=== PATIENT | male | born 1935 | race Caucasian/White ===

== ENCOUNTER 2018-04-23 14:07 | Emergency (ER) | payer MEDICARE, SELFPAY ==
[2018-04-23 14:09] VITALS: BP 155/88; PULSE 68; RESP 14; TEMP 36.6; O2SAT 98; BMI 30.1
--- NOTE | 2018-04-23 14:12 | RAD_ITS ---
STUDY: X-RAY CHEST REASON FOR EXAM: Male, 82 years old. Chest pain. TECHNIQUE: Single AP portable view of the chest. COMPARISON: CT of the chest, April 23, 2018. FINDINGS: The lungs are clear and expanded. There is a calcified granuloma in the medial right lower lobe. There is no demonstrated pleural abnormality. There is borderline cardiomegaly. Normal mediastinum and natalie. Normal visualized pulmonary arteries. There is mild atherosclerotic calcification of the aortic arch with tortuosity. The thoracic spine is obscured by the mediastinum. Normal visualized ribs, clavicles, and shoulders. There is no demonstrated abnormality of the visualized soft tissue structures of the upper abdomen. RAD/Chest 1 View (Portable) IMPRESSION: Old granulomatous disease without acute cardiopulmonary process. Electronically Signed: Zac Perry DO at 16:25 EDT Tel [phone], Service support ,
--- NOTE | 2018-04-23 14:23 | CT_ITS ---
STUDY: CTA CHEST REASON FOR EXAM: Male, 82 years old. Constant sternal chest pain for 3 days. RADIATION DOSAGE (If Supplied By Facility): CTDIvol = ( 20.64 ) mGy, DLP = ( 492.83 ) mGycm TECHNIQUE: The examination was performed with the intravenous administration of 100 ml of Isovue 370 contrast material. Post-processing of the angiographic images was performed, with multiplanar reformation and 3D reconstruction. Individualized dose optimization techniques were used for this CT. COMPARISON: Chest, April 23, 2018. FINDINGS: Normal enhancement of the main pulmonary artery and right and left pulmonary arteries. Normal enhancement of the bilateral peripheral pulmonary arteries. There is no demonstrated pulmonary embolism. There is atherosclerotic tortuosity of the thoracic aorta. The ascending thoracic aorta measures 4.1 x 3.9 cm in diameter. This tapers into the arch.. There is no demonstrated aortic dissection. The heart is borderline enlarged. There are coronary artery calcifications. Normal mediastinum. There is a small right hilar calcified lymph node. Normal visualized trachea and bronchi. The lungs are well expanded. There is a 6 mm calcified granuloma in the perihilar right lower lobe. There is calcifications along the posterior right diaphragmatic surface. No other demonstrated pleural abnormality. Normal chest wall structures. Minimal degenerative changes of the lower thoracic spine. Normal visualized upper abdomen. CT/CTA Chest W/WO Contrast IMPRESSION: 1. No evidence of pulmonary embolus. 2. Borderline ascending thoracic aortic aneurysm. The aorta measures 3.9 x 4.1 cm at the level of the right pulmonary artery. 3. Atherosclerotic changes of the thoracic aorta and coronary arteries. 4. Borderline cardiomegaly. 5. Old granulomatous disease. Electronically Signed: Zac Perry DO at 16:24 EDT Tel [phone], Service support ,
[2018-04-23 14:30] LABS: Absolute Lymphocyte Count 2.09 X10^3/ul (0.83-4.51); Absolute Neutrophil Count 3.2 X10^3/uL (2.0-7.7); Eosinophil# 0.07 X10^3/uL; Eosinophils% 1.2 % (0-5); Hemoglobin 14.6 g/dl (13.0-16.5); Lymphocyte # 2.09 X10^3/ul (4.0); Lymphocyte % 36.2 % (19-41); Mean Corp Hgb Conc 33.2 g/gl (32-36); Mean Corpuscular Hgb 31.1 pg (27.0-32.0); Mean Corpuscular Volume 93.8 fL (80-94); Mean Platelet Vol. 9.6 fl (6.2-12.0); Monocyte# 0.37 X10^3/uL; Monocyte% 6.4 % (0-10); Neutrophil # 3.23 X10^3/uL (2.7-7.7); Platelet Count 203 K/mm3 (150-450); RBC Distribution Width CV 13.1 % (11.6-14.6); RBC Distribution Width SD 44.8 fl (35.1-43.9); Red Blood Count 4.69 M/mm3 (4.6-6.2); White Blood Count 5.8 K/mm3 (4.4-11.0)
--- NOTE | 2018-04-23 14:31 | ED.DCSUM_ITS ---
- ER Visit Summary Date of Service: 04/23/18 Chief Complaint: [] Right-sided chest pain for weeks History of Present Illness: The patient is a 82 M [] right-sided chest pain for weeks etiology of this is unclear, he had prior outpatient workup with his physicians including what sounds like x-rays and labs are unremarkable he is scheduled to have an EGD sometime later this month he had persistence of the right subcostal margin chest pain he was brought in by family, he has had no fever no cough he is able to eat and drink bowel bladder habits have been normal he has no history of TX PE or DVT, he takes his hand draws over the right subcostal margin as the focus of his pain Physical Examination: [] Pain as above vital signs within normal range he is in no distress his HEENT exam unremarkable neck is supple the lungs are clear the chest wall there is pain to palpation over the right septal costal margin is no crepitus or subcu air is no signs of trauma or bruising or MRSA or infection the rest of his chest wall is nontender the abdomen soft nontender upper lower extremities otherwise unremarkable the backs unremarkable pulses are symmetric he has no clubbing cyanosis or edema or signs of DVT to any extremity and he is awake alert sitting forward and sometimes turning seems to cause an increase of the pain The family is quite concerned as to the etiology of the pain they sound dissatisfied with outpatient workup, he scheduled to have EGD sometime this month as is a concern is hiatal hernia may be causing this His age and the broad differential screening labs EKG troponin CTA are obtained The EKG labs CTA chest x-rays are all generally unremarkable no acute findings see those reports please on reevaluation is resting comforting the bed no distress Plan test results the family he has had the symptoms that are very focal to the right lower chest for weeks there is nothing at this time that suggest an acute life-threatening process he will continue all his therapies he will keep all of his appointments with his physicians I will start him on [place] No. 7 tablets to use only at bedtime so he can get some relief of the pain flare at that time but otherwise he will follow-up with his physicians and return for change in symptoms Test Results: [] Emergency Department Course and Treatment: [] Treatment Plan: [] Disposition: [] Home stable Impression: [] Right sided chest pain for weeks etiology unclear This note was generated with Dragon dictation software. It may contain incorrect words, spelling, and punctuation that were not noted in review of the chart prior to signing ED Disposition - Plan for ED Patient: Chief Complaint: Chest Pain Referrals: Nichole Penaloza [Primary Care Provider] -
[2018-04-23 14:43] LABS: Anion Gap 5 (5-15); BUN 17 mg/dL (7-18); BUN/Creat Ratio 13.9 RATIO (10-20); Calcium,Total 8.9 mg/dL (8.5-10.1); Chloride 103 mmol/L (98-107); Creatinine, Serum 1.22 mg/dL (0.70-1.30); EST Glomerular Filtration Rate 60 mL/min (>60); Est Glom Filt Rate - Afr Amer 73 mL/min (>60); Glucose 113 mg/dL (74-106); Potassium 4.2 mmol/L (3.5-5.1); Sodium Level 138 mmol/L (136-145)
[2018-04-23 14:48] LABS: AST(SGOT) 27 U/L (15-37); Alanine Aminotransfer ALT/SGPT 51 U/L (16-61); Albumin, Serum 3.8 g/dL (3.2-5.0); Alkaline Phosphatase 63 U/L (45-117); Bilirubin, Direct 0.15 mg/dL (0.00-0.30); Globulin 3.6 g/dL (2.2-4.2); Protein, Total 7.4 g/dL (6.4-8.2)
[2018-04-23 14:49] LABS: POSITIVE COUNT NO; POSITIVE DIFFERENTIAL NO; POSITIVE MORPHOLOGY NO
[2018-04-23 14:57] LABS: Lipase 164 U/L (73-393)
[2018-04-23 15:25] LABS: BNP,B-Type NATRIURETIC PEPTIDE 52.4 pg/mL (0-100)
[2018-04-23 15:37] VITALS: BP 149/92; PULSE 66; RESP 12; O2SAT 97
[2018-04-23 16:20] VITALS: BP 131/97; PULSE 66; RESP 18; O2SAT 96
--- NOTE | 2018-04-23 16:31 | DCINST.ED_ITS ---
ED Disposition - Plan for ED Patient: Chief Complaint: Chest Pain Instructions: ED Chest Pain Atypical Unkn Cause Prescriptions: Hydrocodone Bitart/Apap 5-325 [[place] 5MG-325MG] 1 tab PO QHS 3 Days #10 tab Referrals: Nichole Penaloza [Primary Care Provider] -
[2018-04-23 16:39] VITALS: BP 145/91; PULSE 70; RESP 16; O2SAT 97
--- NOTE | 2018-04-23 16:58 | ED.RN ---
PATIENT FAMILY DID NOT FEEL COMFORTABLE TAKING PATIENT HOME BEING THAT HE WAS STILL IN PAIN AND ALL THE OF HIS TEST RESULTS CAME BACK NORMAL. DR EUCEDA HAD LEFT SO THIS NURSE HAD DR. BUCK TALK TO THE FAMILY ABOUT THE TEST RESULTS AND THE PATIENTS FAMILY STATED THAT THEY FELT COMFORTABLE AND HAD A BETTER UNDERSTANDING.
== END 2018-04-23 17:01 | disposition home or self-care (01) ==
PROVIDERS: Emergency Provider Emergency Medicine; Family Provider Internal Medicine Infectious Disease; PCP Internal Medicine Infectious Disease
DX: R07.9 Chest pain, unspecified (principal); K44.9 Diaphragmatic hernia without obstruction or gangrene; Z79.82 Long term (current) use of aspirin; Z79.899 Other long term (current) drug therapy
CPT/HCPCS: 71045; 71275; 80048; 80076; 83690; 83880; 84484; 85025; 93005; 99284; Q9967; A4216

== ENCOUNTER 2019-04-14 14:00 | Outpatient (RCR) | payer MEDICARE, SELFPAY ==
--- NOTE | 2019-04-01 12:25 | HP.PTEVAL ---
Patient's Visit Information ENRICO LIVE is a 83 year old M referred to Physical Therapy by David Varma MD with a diagnosis of Vestibular neuritis. Date of Evaluation: 04/01/19 Physical Therapist: Colin Beard, RENZO, OCS, CSCS - Visit Plan Frequency: 1x/Week Duration: 4-6 Weeks Plan: weekly x 4-6 to progress adaptationa nd monitor symptoms. - Subjective Findings: Saw Dr. aVrma due to imbalance and dizzyness he started 2 weeks. Started when he was fixing breakfast and got dizzy and fell. Went to hospital and ran tests of head and found nothing. Dr. Varma then sent to therapy. Had MRI yesterday. Currently feels weak. No dizzyness. Head just doesn't feel right. Doesn't change with movements. NO JESSICA but has some neck pain for last few months. Gets better as day goes along. Balance is worse now then prior to this as he has to hang on to everything. Does not want to use cane or walker. No other falls. Has spent days trying to be active and be outside despite not feeling good. Works out at [employer] now 20-30 minutes out of normal 45 minutes as the feeling in his head gets worse. Hard to go in straight line. Activities avoiding include mowing and weed eating. Basic ADLs are going OK. Watching TV is OK. Not employed. Has steps to basement and no problem hanging on. - Objective c/s aROM WFL and without pain. VOR walk I but challenging to keep head moving. , trasnfers adn steps I without UE today. - B hallpike, - rol test. Oculomotor: Pursuit is slow and saccades are slow but asymptomatic. no nystagmus with gaze or head shake. VOR is symptomatic +4/10 from baseline for 10-15 seconds after 30 seconds seated horiz VOR. + L head thrust slightly. Convergence is not happening. - skew eye deviation. 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 Rehabilitation Potential: Fair - Anticipated Interventions Patient/Client Instruction: Educate patient on: Condition, Plan of Care For the Purpose of:: To increase tolerance to activity/condition/position, To improve ability of physical actions for home/community/work/leisure Therapeutic Exercise to Include: Balance training Comment: adaptation For the Purpose of:: To increase tolerance to activity/condition/position, To improve ability of physical actions for home/community/work/leisure Thank you for the opportunity to evaluate your patient. For Medicare and Medicare HMO plans, please review the plan of care and approve it. It will need to be FAXED BACK to us at [phone] for Medicare purposes. For Medicare only, by signing this I certify the plan of care. Please let me know if there are questions or concerns regarding this plan of care. Physician Signature: Date:
--- NOTE | 2019-06-24 15:34 | HP.PTDCNRP_ITS ---
HP - Discharge Summary (1) - Patient Information ENRICO LIVE was seen in my office for initial evaluation on 04/01/19. The following Plan of Care was established for this patient: Initial Frequency: 1x/Week Initial Duration: 4-6 Weeks - Anticipated Interventions Patient/Client Instruction: Educate patient on: Condition, Plan of Care For the Purpose of:: To increase tolerance to activity/condition/position, To i mprove ability of physical actions for home/community/work/leisure Therapeutic Exercise to Include: Balance training For the Purpose of:: To increase tolerance to activity/condition/position, To improve ability of physical actions for home/community/work/leisure This patient was last seen in our office 04/14/19. Pertinent comments regarding their Physical therapy will appear below: Pt seen two visits adn was 90% improved. He was to f/u a week later but neglected to schedule or attend. at this point, it has been over 8 weeks adn i will discontinue due to nonattendance. At this point I will be discontinuing this patient from physical therapy. I would be happy to see this patient again in the future if found appropriate by the physician. Thank you! Colin Beard, DPT, OCS, CSCS
== END 2019-04-14 19:00 | disposition home or self-care (01) ==
LOC: PT 14:00
PROVIDERS: Family Provider Internal Medicine Infectious Disease; PCP Internal Medicine Infectious Disease; Referring Provider Otolaryngology; Visit Provider Otolaryngology
DX: H93.3X9 Disorders of unspecified acoustic nerve (principal)
CPT/HCPCS: 97110; 97162; 97530

== ENCOUNTER → 2022-04-17 | Outpatient (CLI) | payer MEDICARE, SELFPAY ==
--- NOTE | 2022-04-17 17:11 | MRI_ITS ---
STUDY: MR Spine Lumbar W/O Contrast 04/17/2022 7:23 PM REASON FOR EXAM: Male, 86 years old. Back pain LUMBAR RADICULOPATHY, RIGHT SIDED PAIN TECHNIQUE: MR Spine Lumbar W/O Contrast Standardized fat and water weighted pulse sequences were obtained. COMPARISON: None FINDINGS: T12-L1: Normal endplates. Normal disc height, hydration and morphology. Normal bilateral facet joints. Normal central canal and bilateral lateral recesses. Normal bilateral intervertebral neural foramina. Normal lumbar lordosis. There is an S-shaped lumbar scoliosis with a dextroscoliosis of the upper lumbar spine and levoscoliosis of the lower lumbar spine. Normal conus medullaris that terminates at the L1. There is T2 hyperintensities of the right kidney. These are consistent for cysts. No follow up required. L1-2: Loss of intervertebral disc height. There is endplate spondylosis of the vertebral body. There is bilateral ligamentum flavum thickening. Severe narrowing of the left intervertebral neuroforamina. Compression of exiting left L1 nerve root. There is bilateral facet arthropathy. Discogenic endplate changes. Narrowing of the lateral recess. Posterior disc bulge. L2-3: Loss of intervertebral disc height. There is endplate spondylosis of the vertebral body. There is bilateral ligamentum flavum thickening. Severe narrowing of the left intervertebral neuroforamina. Compression of exiting left L2 nerve root. There is bilateral facet arthropathy. Discogenic endplate changes. Narrowing of the lateral recess. L3-4: Loss of intervertebral disc height. There is endplate spondylosis of the vertebral body. Narrowing of the lateral recess. Mild spinal stenosis.. There is bilateral facet arthropathy. Disc desiccation. L4-5: Loss of intervertebral disc height. There is endplate spondylosis of the vertebral body. There is a Grade 1 anterolisthesis of L4 on L5. Posterior disc bulge. Severe right neural foraminal stenosis. Compression of exiting nerve root. There is bilateral facet arthropathy. Narrowing of the right lateral recess. Disc desiccation. Mild spinal stenosis. L5-S1: Loss of intervertebral disc height. There is endplate spondylosis of the vertebral body. There is bilateral facet arthropathy. Bilateral neural foraminal stenosis. Compression of exiting nerve roots. There is bilateral ligamentum flavum thickening. Grade 1 retrolisthesis of L5 on S1. Discogenic endplate changes. Vertebral body hemangioma of S1. Normal visualized sacral ala. Normal visualized paraspinous soft tissue structures. MRI/Spine Lumbar (Routine) IMPRESSION: Multilevel degenerative changes, as described above. Electronically Signed: Davin Haider MD at 19:28 EDT ,
== END | disposition home or self-care (01) ==
LOC: MRI 17:03
PROVIDERS: PCP Internal Medicine Infectious Disease; Referring Provider Anesthesiology Pain Medicine; Visit Provider Anesthesiology Pain Medicine
DX: M51.16 Intervertebral disc disorders with radiculopathy, lumbar region (principal)
CPT/HCPCS: 72148

== ENCOUNTER → 2023-01-28 | Outpatient (CLI) | payer MEDICARE, SELFPAY ==
[2023-01-28 17:22] LABS: Absolute Lymphocyte Count 1.68 X10^3/uL (0.83-4.51); Absolute Neutrophil Count 3.4 X10^3/uL (2.0-7.7); Basophil# 0.01 X10^3/uL; Basophil% 0.2 % (0-1); Eosinophil# 0.12 X10^3/uL; Eosinophils% 2.2 % (0-5); Hematocrit 41.7 % (40-54); Hemoglobin 13.6 g/dL (13.0-16.5); Lymphocyte # 1.68 X10^3/ul (0.83-4.51); Lymphocyte % 30.3 % (19-41); Mean Corp Hgb Conc 32.6 g/dL (32-36); Mean Corpuscular Hgb 30.7 pg (27.0-32.0); Mean Corpuscular Volume 94.1 fL (80-94); Mean Platelet Vol. 10.2 fl (6.2-12.0); Monocyte# 0.34 X10^3/uL; Monocyte% 6.1 % (0-10); NRBC Flagged by Analyzer 0 % (0-5); Neutrophil # 3.37 X10^3/uL (2.7-7.7); Neutrophil % 60.8 % (47-70); Platelet Count 204 K/mm3 (150-450); RBC Distribution Width CV 13.1 % (11.6-14.6); RBC Distribution Width SD 45.4 fl (35.1-43.9); Red Blood Count 4.43 M/mm3 (4.6-6.2); White Blood Count 5.5 K/mm3 (4.4-11.0)
[2023-01-28 18:37] LABS: ALB/GLOB Ratio 1.2 RATIO (0.9-2.4); AST(SGOT) 34 U/L (15-37); Alanine Aminotransfer ALT/SGPT 66 U/L (16-61); Alkaline Phosphatase 62 U/L (45-117); Anion Gap 6 (5-15); BUN 15 mg/dL (7-18); BUN/Creat Ratio 14.2 RATIO (10-20); Calcium,Total 8.8 mg/dL (8.5-10.1); Chloride 102 mmol/L (98-107); Creatinine, Serum 1.06 mg/dL (0.70-1.30); EST Glomerular Filtration Rate 70 mL/min (>60); Est Glom Filt Rate - Afr Amer 85 mL/min (>60); Globulin 3.3 g/dL (2.2-4.2); Glucose 106 mg/dL (74-106); Potassium 3.9 mmol/L (3.5-5.1); Protein, Total 7.3 g/dL (6.4-8.2); Sodium Level 135 mmol/L (136-145); Thyroid Stim Hormone (TSH) 4.14 uIU/mL (0.358-3.74)
[2023-01-28 19:20] LABS: Hepatitis C Antibody Non-Reactive (Nonreactive); Syphilis Antibodies Non-reactive; Vitamin B12 522 pg/mL (211-911)
== END | disposition home or self-care (01) ==
LOC: POLAB3 16:55
PROVIDERS: PCP Internal Medicine Infectious Disease; Visit Provider Family Medicine Geriatric Medicine
DX: E11.65 Type 2 diabetes mellitus with hyperglycemia (principal)
CPT/HCPCS: 36415; 80053; 82306; 82607; 82746; 84443; 85025; 86780; 86803

== ENCOUNTER → 2023-02-04 | Outpatient (CLI) | payer MEDICARE, SELFPAY ==
--- NOTE | 2023-02-04 12:23 | CT_ITS ---
STUDY: CT BRAIN WITHOUT CONTRAST REASON FOR EXAM: Male, 87 years old. ALZHEIMER DISEASE RADIATION DOSAGE (If Supplied By Facility): CTDIvol = ( 44.99 ) mGy, DLP = ( 745.49 ) mGycm TECHNIQUE: Transaxial CT imaging of the brain was performed without administration of intravenous contrast material. Individualized dose optimization techniques were used for this CT. COMPARISON: No relevant priors. FINDINGS: Normal soft tissue structures. Normal calvarium. There is mild cerebral atrophy with widening of the extra-axial spaces and ventricular dilatation. There are areas of decreased attenuation within the white matter tracts of the supratentorial brain, consistent with microvascular disease changes. Normal basal ganglia and thalami. Normal brainstem. Normal cerebellum. There is no intracranial hemorrhage. There are no findings of an acute ischemic infarction. Normal visualized paranasal sinuses. CT/Brain/Head without Contrast IMPRESSION: No acute intracranial hemorrhage or mass effect. Electronically Signed: Clark Ann (Brooks), at 14:45 EDT ,
== END | disposition home or self-care (01) ==
LOC: CVS 12:19 → CT 12:25
PROVIDERS: PCP Family Medicine Geriatric Medicine; Referring Provider Family Medicine Geriatric Medicine; Visit Provider Family Medicine Geriatric Medicine
DX: G30.9 Alzheimer's disease, unspecified (principal)
CPT/HCPCS: 70450

== ENCOUNTER → 2023-04-04 | Outpatient (CLI) | payer MEDICARE, SELFPAY ==
--- NOTE | 2023-04-04 08:00 | ART_ITS ---
Reason For Study: PAD Left Segmental Pressures Left brachial= 159mmHg. Left posterior tibial artery = 198mmHg. Left dorsalis pedis artery = 170mmHg. The left posterior tibial artery waveforms are triphasic. The left dorsalis pedis waveforms are triphasic. Right Segmental Pressures Right brachial= 161mmHg. Right posterior tibial artery = 192mmHg. Right dorsalis pedis artery = 184mmHg. The right posterior tibial artery waveforms are triphasic. The right dorsalis pedis waveforms are triphasic. Indices The right resting ankle brachial index is 1.19. The right ankle brachial index by the posterior tibial artery is 1.19. The right ankle brachial index by the dorsalis pedis is 1.14. The left resting ankle brachial index is 1.23. The left ankle brachial index by the posterior tibial artery is 1.23. The left ankle brachial index by the dorsalis pedis is 1.06. VL/Ankle Brachial Index Interpretation Summary Right GIANNA 1.19, normal. Doppler/PVR waveforms of the right leg normal at rest. Left GIANNA 1.23, normal. Doppler/PVR waveforms of the left leg normal at rest. Ordering Physician: Elliott Singh Chi Referring Physician: Elliott Singh Chi Performed By: Tori Newton RVT, RDCS
== END | disposition home or self-care (01) ==
LOC: CVS 07:53
PROVIDERS: PCP Family Medicine Geriatric Medicine; Referring Provider Family Medicine Geriatric Medicine; Visit Provider Family Medicine Geriatric Medicine
DX: I73.9 Peripheral vascular disease, unspecified (principal); I77.9 Disorder of arteries and arterioles, unspecified
CPT/HCPCS: 93922

== ENCOUNTER 2023-05-02 08:09 | Outpatient (CLI) | payer MEDICARE, SELFPAY ==
--- NOTE | 2023-05-02 08:10 | NM_ITS ---
CLINICAL: 87-year-old male with history of low back discomfort. WHOLE BODY 99m Tc MDP RADIONUCLIDE BONE SCINTIGRAPHY COMPARISON: None available FINDINGS: Following the intravenous administration of 25.0 mCi of 99m Tc MDP, whole body bone images reveal: 1. Increased radiopharmaceutical concentration is defined in the acromioclavicular compartments of both shoulders, sternoclavicular compartment of the left shoulder, the fourth and fifth lumbar vertebra posteriorly on the left and right respectively. 2. The remaining skeletal structures are scintigraphically unremarkable with normal-appearing renal images and urinary bladder activity identified. NM/Bone Scan Whole Body IMPRESSION: 1. The increase in radiopharmaceutical concentration defined in the bilateral shoulders and fourth-fifth lumbar vertebra is commensurate with degenerative arthrosis. 2. No other scintigraphic abnormalities are defined. There is no definitive evidence of large articulation synovitis or trauma-fracture. Electronically Signed: Eduin Rodriguez, at 21:22 EDT ,
== END 2023-05-02 23:59 | disposition home or self-care (01) ==
PROVIDERS: PCP Family Medicine Geriatric Medicine; Referring Provider Orthopaedic Surgery; Visit Provider Orthopaedic Surgery
DX: Z00.00 Encounter for general adult medical examination without abnormal findings (principal); G30.9 Alzheimer's disease, unspecified; E11.65 Type 2 diabetes mellitus with hyperglycemia; M51.36 Other intervertebral disc degeneration, lumbar region; E03.9 Hypothyroidism, unspecified; Z13.89 Encounter for screening for other disorder; E55.9 Vitamin D deficiency, unspecified
CPT/HCPCS: 36415; 78306; 80053; 82306; 84443; 85025; A9503

== ENCOUNTER 2023-05-02 10:18 | Outpatient (CLI) | payer MEDICARE, SELFPAY ==
[2023-05-02 11:08] LABS: Absolute Lymphocyte Count 1.42 X10^3/uL (0.83-4.51); Eosinophil# 0.16 X10^3/uL; Eosinophils% 2.3 % (0-5); Hematocrit 42.5 % (40-54); Hemoglobin 13.7 g/dL (13.0-16.5); Lymphocyte # 1.42 X10^3/ul (0.83-4.51); Lymphocyte % 20.4 % (19-41); Mean Corp Hgb Conc 32.2 g/dL (32-36); Mean Corpuscular Hgb 31.1 pg (27.0-32.0); Mean Corpuscular Volume 96.4 fL (80-94); Mean Platelet Vol. 9.9 fl (6.2-12.0); Monocyte% 5.7 % (0-10); NRBC Flagged by Analyzer 0 % (0-5); Neutrophil # 4.95 X10^3/uL (2.7-7.7); Neutrophil % 71.2 % (47-70); Platelet Count 210 K/mm3 (150-450); RBC Distribution Width CV 13.1 % (11.6-14.6); RBC Distribution Width SD 46.3 fl (35.1-43.9); Red Blood Count 4.41 M/mm3 (4.6-6.2)
[2023-05-02 11:38] LABS: Vitamin D,25 Hydroxy 43.1 ng/mL
[2023-05-02 11:45] LABS: AST(SGOT) 16 U/L (15-37); Alanine Aminotransfer ALT/SGPT 19 U/L (16-61); Albumin, Serum 3.6 g/dL (3.2-5.0); Alkaline Phosphatase 60 U/L (45-117); Anion Gap 6 (5-15); BUN 11 mg/dL (7-18); BUN/Creat Ratio 10.9 RATIO (10-20); Chloride 101 mmol/L (98-107); Creatinine, Serum 1.01 mg/dL (0.70-1.30); EST Glomerular Filtration Rate 74 mL/min (>60); Est Glom Filt Rate - Afr Amer 90 mL/min (>60); Globulin 3.6 g/dL (2.2-4.2); Glucose 174 mg/dL (74-106); Potassium 3.5 mmol/L (3.5-5.1); Protein, Total 7.2 g/dL (6.4-8.2); Sodium Level 135 mmol/L (136-145)
== END 2023-05-02 23:59 | disposition home or self-care (01) ==
LOC: LAB 10:20
PROVIDERS: PCP Family Medicine Geriatric Medicine; Referring Provider Family Medicine Geriatric Medicine; Visit Provider Family Medicine Geriatric Medicine
DX: Z00.00 Encounter for general adult medical examination without abnormal findings (principal); G30.9 Alzheimer's disease, unspecified; E11.65 Type 2 diabetes mellitus with hyperglycemia; E03.9 Hypothyroidism, unspecified; Z13.89 Encounter for screening for other disorder; E55.9 Vitamin D deficiency, unspecified
CPT/HCPCS: 36415; 80053; 82306; 84443; 85025

== ENCOUNTER 2023-07-25 10:53 | Outpatient (CLI) | payer MEDICARE, SELFPAY ==
[2023-07-25 12:28] LABS: Absolute Lymphocyte Count 1.43 X10^3/uL (0.83-4.51); Absolute Neutrophil Count 2.9 X10^3/uL (2.0-7.7); Basophil# 0.01 X10^3/uL; Basophil% 0.2 % (0-1); Eosinophil# 0.09 X10^3/uL; Eosinophils% 1.9 % (0-5); Hematocrit 41.8 % (40-54); Hemoglobin 13.5 g/dL (13.0-16.5); Lymphocyte # 1.43 X10^3/ul (0.83-4.51); Lymphocyte % 29.9 % (19-41); Mean Corp Hgb Conc 32.3 g/dL (32-36); Mean Corpuscular Volume 96.1 fL (80-94); Mean Platelet Vol. 10.6 fl (6.2-12.0); Monocyte# 0.37 X10^3/uL; Monocyte% 7.7 % (0-10); NRBC Flagged by Analyzer 0 % (0-5); Neutrophil # 2.85 X10^3/uL (2.7-7.7); Neutrophil % 59.7 % (47-70); Platelet Count 245 K/mm3 (150-450); RBC Distribution Width CV 12.5 % (11.6-14.6); RBC Distribution Width SD 44.9 fl (35.1-43.9); Red Blood Count 4.35 M/mm3 (4.6-6.2); White Blood Count 4.8 K/mm3 (4.4-11.0)
[2023-07-25 12:48] LABS: Vitamin D,25 Hydroxy 47.9 ng/mL
[2023-07-25 12:58] LABS: ALB/GLOB Ratio 0.9 RATIO (0.9-2.4); AST(SGOT) 14 U/L (15-37); Alanine Aminotransfer ALT/SGPT 17 U/L (16-61); Albumin, Serum 3.5 g/dL (3.2-5.0); Alkaline Phosphatase 63 U/L (45-117); Anion Gap 8 (5-15); BUN 14 mg/dL (7-18); BUN/Creat Ratio 15.3 RATIO (10-20); Calcium,Total 8.7 mg/dL (8.5-10.1); Chloride 101 mmol/L (98-107); Creatinine, Serum 0.92 mg/dL (0.70-1.30); EST Glomerular Filtration Rate 83 mL/min (>60); Est Glom Filt Rate - Afr Amer 100 mL/min (>60); Globulin 3.9 g/dL (2.2-4.2); Glucose 188 mg/dL (74-106); Potassium 4.1 mmol/L (3.5-5.1); Protein, Total 7.4 g/dL (6.4-8.2); Sodium Level 137 mmol/L (136-145); Thyroid Stim Hormone (TSH) 3.38 uIU/mL (0.358-3.74)
== END 2023-07-25 23:59 | disposition home or self-care (01) ==
PROVIDERS: PCP Family Medicine Geriatric Medicine; Visit Provider Family Medicine Geriatric Medicine
DX: E11.65 Type 2 diabetes mellitus with hyperglycemia (principal); R53.83 Other fatigue; E55.9 Vitamin D deficiency, unspecified; R68.83 Chills (without fever)
CPT/HCPCS: 36415; 80053; 82306; 84443; 85025; 87635; 87804; 87807; C9803

== ENCOUNTER → 2023-07-25 | Outpatient (CLI) | payer MEDICARE, SELFPAY | END | disposition home or self-care (01) | PROVIDERS: PCP Family Medicine Geriatric Medicine; Referring Provider Family Medicine Geriatric Medicine; Visit Provider Family Medicine Geriatric Medicine | DX: R68.83 Chills (without fever) (principal) | CPT/HCPCS: 87635; 87804; 87807; C9803 ==

== ENCOUNTER 2023-11-27 17:10 | Inpatient (IN) | payer MEDICARE, SELFPAY ==
[2023-11-27 17:16] VITALS: BP 121/77; PULSE 82; RESP 16; TEMP 35.9; O2SAT 98; BMI 28.8
--- NOTE | 2023-11-27 17:51 | HP.PCM_ITS ---
HPI - General General Date of Admission: 11/27/23 Date of Service: 11/27/23 Chief Complaint: Here for rehabilitation. HPI Narrative ENRICO LIVE, is a 87 Male with past medical history of atrial flutter on Eliquis, HTN, Hyperlipidemia, hypothyroidism, acute left frontal parenchymal hemorrhage 2023, and Alzheimer Disease. Patient presented to [facility] with concerns of multiple falls, left hip pain, left sided weakness. Patient transferred to [facility] 11/22/2023 for further treatment. Patient underwent CT of head which showed no evidence of mass, hemorrhage, or acute infarct. A 0.9cm hypodensity was noted at the lateral right thalamus, not well visualized on prior study. Possibly acute/subacute lacunar infarct. CT of head and neck showed no LVO, however did show right [facility] P1 segment occlusion. Patient was not a TNK candidate. An MRI of the brain was completed showing an acute right sided posterior circulation strokes in the right thalamus, portions of right posterior caudate nucleus, small portions of the right medial temporal lobe and areas in the right occipital lobe. CT of left hip showed stranding in the subcutaneous tissues overlying the left hip, consistent with contusion. No acute osseous abnormality. MRI of the cervical spine was completed showing stenosis. An echocardiogram completed showed an EF of 50 to 55%, no shunt. UA not concerning for infection. Neurology and neurosurgery were consulted, who were in agreement in restarting anticoagulation. Patient to follow up with both specialties at discharge. PT/OT recommending SNF. The patient is stable for discharge to [facility] TCU today. Daughters updated bedside. [facility] Medical History (Updated 11/27/23 @ 21:[address] 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 Alzheimer disease Atrial flutter Cervical spinal stenosis Chronic anemia Contusion of left hip Debility Hyperlipidemia Hypertension Home Medications Alive Multivitamin 2 tab PO BID SUPPLEMENT 06/04/16 [History Last Taken 04/23/18] Omeprazole [Prilosec] 40 mg PO QHS GERD 06/04/16 [History Last Taken 04/22/18] atorvastatin 40 mg tablet 40 mg PO QHS CHOLESTERPL 06/04/16 [History Last Taken 04/22/18] fluoxetine 10 mg capsule 10 mg PO QHS depresssion 06/04/16 [History Last Taken 04/22/18] glimepiride 4 mg tablet 4 mg PO BID DIABETES 06/04/16 [History Last Taken 04/23/18] milk thistle 150 mg capsule 150 mg PO QHS supplement 06/04/16 [History Last Taken 04/22/18] Calcium 1 tab PO BID SUPPLEMENT 04/23/18 [History Last Taken 04/23/18] Fish Oil 1,280 mg PO BID SUPPLEMENT 04/23/18 [History Last Taken 04/23/18] cholecalciferol (vitamin D3) 50 mcg (2,000 unit) capsule (D3-2000) 2,000 unit PO DAILY SUPPLEMENT 04/23/18 [History Last Taken 04/23/18] coenzyme Q10 100 mg capsule (Co Q-10) 100 mg PO DAILY SUPPLEMENT 04/23/18 [History Last Taken 04/22/18] hydrocodone-acetaminophen 5-325mg 5mg-325mg 1 tab PO QHS pain\ 3 days #10 tabs 04/23/18 [Rx Last Taken Unknown] magnesium oxide 400 mg (241.3 mg magnesium) tablet 400 mg PO BID SUPPLEMENT 04/23/18 [History Last Taken 04/23/18] polyethylene glycol 3350 17 gram/dose oral powder (Miralax) 17 g PO DAILY CONSTIPATION 04/23/18 [History Last Taken 04/22/18] acetaminophen 500 mg tablet 500 mg PO Q6H PRN fever or pain 11/27/23 [History Last Taken Unknown] apixaban 5 mg tablet (Eliquis) 5 mg PO BID blood thinner 11/27/23 [History Last Taken Unknown] galantamine 8 mg 24 hr capsule,extended release 8 mg PO DAILY unknown 11/27/23 [History Last Taken Unknown] levetiracetam 500 mg tablet 500 mg PO Q12.TCU seizure prevention 11/27/23 [History Last Taken Unknown] levothyroxine 88 mcg tablet 88 mcg PO DAILY thyroid 11/27/23 [History Last Taken Unknown] lidocaine 4 % topical patch 1 patch topical Q24H pain 11/27/23 [History Last Taken Unknown] memantine 10 mg tablet 10 mg PO BID memory 11/27/23 [History Last Taken Unknown] primidone 50 mg tablet 100 mg PO QHS health 11/27/23 [History Last Taken Unknown] venlafaxine 75 mg tablet 75 mg PO DAILY mood 11/27/23 [History Last Taken Unknown] Allergy/AdvReac Type Severity Reaction Status Date / Time Penicillins Allergy hypotension Verified 07/26/22 09:37 Family History Father CVA (cerebral vascular accident) Mother Myocardial infarction Other Cancer Surgical History Hx of appendectomy Hx of hernia repair Social History household members: spouse Smoking Status: Former smoker alcohol intake: current what type of physical activity do you participate in: walking frequency: 1-2 times per week ROS Constitutional Constitutional: Denies chills, fever(s) or weight gain ENT HEENT: Denies headache(s), nasal congestion or nasal discharge Cardiovascular Cardiovascular: Denies chest pain or palpitations Respiratory/Chest Respiratory/Chest: Denies cough, excessive phlegm production or shortness of breath with exertion Gastrointestinal Gastrointestinal: Denies abdominal pain, nausea or vomiting Genitourinary Genitourinary: Denies dysuria Musculoskeletal Musculoskeletal: Denies joint pain or joint swelling Integumentary Integumentary: Denies rash or wounds Neurologic Neurologic: Reports abnormal speech, confusion, frequent falls, memory loss and weakness; Denies focal weakness, numbness or tingling Psychiatric Psychiatric: Denies anxiety, auditory hallucinations, depression, homicidal ideation or suicidal ideation Vital Signs Vital Signs Vital Signs: 11/27/23 17:16 Temperature 96.6 F L Temperature Source Temporal Pulse Rate 82 Respiratory Rate 16 Blood Pressure 121/77 H Blood Pressure Mean 91 Blood Pressure Source Monitor Blood Pressure Position Semi-Fowlers Blood Pressure Location Right Arm Pulse Ox 98 Oxygen Delivery Method Room Air Weight Weight: 80.966 kg Body Mass Index (BMI) 28.8 Physical Exam Const alert General Appearance: cooperative HEENT normocephalic Eyes PERRL and EOMs intact bilaterally Neck supple, no JVD and no carotid bruits Resp normal respiratory effort, normal air movement and clear to auscultation bilaterally Cardio regular rate and regular rhythm GI normal to inspection, nondistended, normoactive bowel sounds, non-tender and non-distended Extremity normal capillary refill General Extremity: Negative for edema Skin no rashes or lesions noted General Skin Exam: no breakdown Neuro Neuro Narrative: LUE hemiparesis, LLE hemiplegia. Left sided neglect. 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 * Debility - PT/OT/ST. * Pain - Tylenol 1000mg q8, Tramadol 50mg q6 prn pain (1-5), Oxycodone 2.5mg q4 prn pain (6-10), Lidoderm 1 patch td daily. * Bowel - senna/colace 1 tablet bid, Magnesium citrate 300ml daily prn. * Adult immunization - Administer pneumonia vaccine, covid vaccine, flu vaccine as appropriate * DVT prophylaxis - on Eliquis. * Atrial Flutter - Eliquis 5mg bid. * Hyperlipidemia - Atorvastatin 40mg qhs. * Alzheimer Disease - Galantamine 4mg bid, Memantine 10mg bid. * Diabetes Mellitus II - Glimepiride 4mg bid. * Seizure prophylaxis - Keppra 500mg q12. * Hypothyroidism - Levothyroxine 88mcg daily. * Hypomagnesemia - Magnesium chloride 128mg bid. * GERD - Pantoprazole 40mg qhs. * Tremor - Primidone 100mg qhs. * Depression - Venlafaxine 75mg daily, stable chronic group home use, GDR not recommended.
[2023-11-27] MEDS: traMADol 50 MG Tablet PO (18:27)
[2023-11-27] MEDS: Acetaminophen 500 MG Tablet 1000 MG PO (21:12)
[2023-11-27] MEDS: Magnesium Chloride 64 MG Delay Rel.Tablet 128 MG PO (21:12)
[2023-11-27] MEDS: APIXABAN 5 MG TABLET PO (21:13)
[2023-11-27] MEDS: Memantine Hydrochloride 10 MG Tablet PO (21:13)
[2023-11-27] MEDS: Glimepiride 4 MG Tablet PO (21:13)
[2023-11-27] MEDS: Pantoprazole Sodium 40 MG Tablet PO (21:13)
[2023-11-27] MEDS: Atorvastatin Calcium 40 MG Tablet PO (21:13)
[2023-11-27] MEDS: levETIRAcetam 500 MG Tablet PO (21:13)
[2023-11-27] MEDS: Primidone 50 MG Tablet 100 MG PO (21:14)
[2023-11-27 21:47] LABS: Bedside Glucose 245 mg/dL (74-106)
--- OUTSIDE RECORDS SUMMARY | 2023-11-27 22:42 | XMS RPT_ITS | CCD ---
Author Name Unknown Address [address] [place] [address] Organization [facility] Care Team Providers Care Supervisor Metal Placing Name Role Phone Isabella Yung MD Primary Care Provider DR KRZYSZTOF HORTON MD Primary Care Physician Kailey Hughes Unavailable Unavailable Unavailable Primary Care Provider UnavailIsabella Izquierdo MD Primary Care Provider TRI RICHARD MD Admitting Unavailable TRI RICHARD MD Primary Care Unavailable TRI RICHARD MD Attending Unavailable ABRAHAM VU MD Attending Unavailable ABRAHAM VU MD Admitting Unavailable ABRAHAM VU MD Primary Care Unavailable ABRAHAM VU MD Attending Unavailable ABRAHAM VU MD Admitting Unavailable ABRAHAM VU MD Primary Care Unavailable KETURAH TORO MD Attending Unavailable KETURAH TORO MD Admitting Unavailable KETURAH TORO MD Primary Care Unavailable ARABELLAAS, ISABELLA Levy Primary Care Unavailable BRICE DRIVER Referring Unavailable TALAMPAS, ISABELLA D Primary Care Unavailable TALAMPAS ISABELLA D Attending Unavailable MEERA JACOBSON Referring Unavailable TALAMPAS, ISABELLA D Primary Care Unavailable BRICE DRIVER Attending Unavailable DR KRZYSZTOF HORTON MD Primary Care Unavailable ABRAHAM VU MD Admitting Unavailable TATI MCCABE MD Attending Unavailable SAMEER VARGHESE MD Consulting Unavailable DOMINIC RAMOS MD, V Consulting Unavailable MICHI WELSH, HARRY Consulting Unavailable KEVAN URBINA MD Consulting Unavailable ABRAHAM VU MD Attending Unavailable SOL WELSH, DR BLANKENSHIP Primary Care Unavailable ABRAHAM VU MD Attending Unavailable SOL WELSH, DR BLANKENSHIP Primary Care Unavailable ABRAHAM VU MD Attending Unavailable SOL WELSH, DR BLANKENSHIP Primary Care Unavailable DILSHAD WELSH, DR MASON Primary Care Unavailable CLAIRE WELSH, DR PINO Admitting Unavailab ann marie REID MD, TIARA NGUYEN Consulting U naida JANE MD, SIMEON Attending Unavailable MIRELLA WELSH, ABRAHAM Conway Consulting Unavailable ULISSES WELSH, JAXON Consulting Unavailable Allergies Allergy Classification Reported Allergen(s) Allergy Type Date of Onset Reaction(s) Facility (3 sources) Penicillins; Translations: [PENICILLINS] Propensity to adverse reactions 8 [facility] Work Phone: (20 sources) Penicillins Propensity to adverse reactions 8 [facility] Work Phone: (2 sources) Penicillin; Translations: [penicillin] Drug Allergy [facility] (1 source) Penicillins Drug allergy (disorder) [facility] Repository Medications Current Medications Medication Drug Class(es) Dates Sig (Normalized) Sig (Original) acetaminophen 500 mg oral tablet (2 sources) Start: 10-15-2023 take 1 mg by mouth every six hours Tylenol Extra Strength 500 mg oral tablet mg = tab(s), Oral, q6hr, 0 Refill(s) Start Date: 10/15/23 Status: Ordered Completed/Discontinued Medications Medication Drug Class(es) Dates Sig (Normalized) Sig (Original) aspirin 81 mg delayed release oral tablet (20 sources) Platelet Aggregation Inhibitor, Nonsteroidal Anti-inflammatory Drug Start: 10-21-2018 take 1 tablet by mouth once daily aspirin, enteric coated (ASPIRIN, ENTERIC COATED) 81 mg EC tablet Take 1 tablet by mouth once daily. 0 10/21/2018 Active Problems Active Problems Problem Classification Problem Date Documented Date Episodic/Chronic Abdominal hernia (1 source) Umbilical hernia; Translations: [Umbilical hernia without obstruction or gangrene] Episodic Acute cerebrovascular disease (7 sources) Non-traumatic subdural hemorrhage; Translations: [Nontraumatic subdural hemorrhage, unspecified] Onset: 09-30-2023 Chronic Anxiety disorders (1 source) Mixed anxiety and depressive disorder; Translations: [Anxiety disorder, unspecified] Chronic Cardiac dysrhythmias (4 sources) Unspecified atrial fibrillation; Translations: [Atrial flutter] Onset: 09-30-2023 Chronic Delirium, dementia, and amnestic and other cognitive disorders (4 sources) Alzheimer's disease; Translations: [Alzheimer's disease, unspecified] Chronic Diabetes mellitus with complications (2 sources) Type 2 diabetes mellitus; Translations: [Type 2 diabetes mellitus with hyperglycemia] Chronic Diabetes mellitus without complication (20 sources) Type 2 diabetes mellitus without complication; Translations: [Type 2 diabetes mellitus without complications] Onset: 10-21-2018 10-21-2018 Chronic Disorders of lipid metabolism (20 sources) Hyperlipidemia; Translations: [Hyperlipidemia, unspecified] Onset: 10-21-2018 10-21-2018 Chronic Esophageal disorders (20 sources) Gastroesophageal reflux disease without esophagitis; Translations: [Gastro-esophageal reflux disease without esophagitis] Onset: 03-03-2021 03-03-2021 Chronic Essential hypertension (3 sources) Essential hypertension; Translations: [Essential (primary) hypertension] Onset: 11-07-2023 Chronic Headache; including migraine (1 source) Headache; Translations: [Headache, unspecified] Onset: 09-30-2023 Episodic Hyperplasia of prostate (20 sources) Urinary frequency due to benign prostatic hypertrophy; Translations: [Benign prostatic hyperplasia with lower urinary tract symptoms] Onset: 10-21-2018 10-21-2018 Chronic Hypertension with complications and secondary hypertension (1 source) Hypertensive urgency ; Translations: [Hypertensive urgency] Chronic Intracranial injury (4 sources) Intracranial hemorrhage following injury; Translations: [Traumatic hemorrhage of cerebrum, unspecified, with loss of consciousness of 30 minutes or less, initial encounter] Episodic Nutritional deficiencies (16 sources) Vitamin D deficiency; Translations: [Vitamin D deficiency, unspecified] Onset: 11-15-2022 Chronic Other aftercare (3 sources) Patient encounter status; Translations: [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] Episodic Other aftercare (1 source) Encounter for therapeutic drug level monitoring; Translations: [Encounter for therapeutic drug monitoring] Onset: 11-04-2023 Episodic Other circulatory disease (1 source) History of cerebrovascular disease; Translations: [Personal history of other diseases of the circulatory system] Episodic Other circulatory disease (1 source) H/O: Stroke in last year 10-15-2023 Episodic Other circulatory disease (3 sources) Personal history of transient ischemic attack (TIA), and cerebral infarction without residual deficits; Translations: [Personal history of transient ischemic attack (TIA), and cerebral infarction without residual deficits] Onset: 10-27-2023 Episodic Other diseases of kidney and ureters (1 source) Cyst of kidney; Translations: [Cyst of kidney, acquired] Episodic Other endocrine disorders (1 source) Adrenal incidentaloma; Translations: [Other specified disorders of adrenal gland] Chronic Other hereditary and degenerative nervous system conditions (15 sources) Essential tremor; Translations: [Essential tremor] Onset: 11-15-2022 Chronic Other hereditary and degenerative nervous system conditions (1 source) Essential tremor; Translations: [Essential tremor] Onset: 11-15-2022 Chronic Other nutritional; endocrine; and metabolic disorders (1 source) Hypomagnesemia; Translations: [Hypomagnesemia] Onset: 11-07-2023 Chronic Other upper respiratory disease (20 sources) Allergic rhinitis; Translations: [Other allergic rhinitis] Onset: 10-21-2018 10-21-2018 Chronic Residual codes; unclassified (1 source) Family history of cancer of colon; Translations: [Family history of malignant neoplasm of digestive organs] Episodic Spondylosis; intervertebral disc disorders; other back problems (5 sources) Degeneration of lumbar intervertebral disc; Translations: [Other intervertebral disc degeneration, lumbar region] Chronic Spondylosis; intervertebral disc disorders; other back problems (1 source) Thoracolumbar radiculopathy; Translations: [Radiculopathy, thoracolumbar region] Episodic Sprains and strains (1 source) Cervical spine sprain; Translations: [Sprain of ligaments of cervical spine, initial encounter] Episodic Thyroid disorders (20 sources) Acquired hypothyroidism; Translations: [Hypothyroidism, unspecified] Onset: 03-03-2021 03-03-2021 Chronic Past or Other Problems Problem Classification Problem Date Documented Da te Episodic/Chronic Abdominal pain (20 sources) Right flank pain; Translations: [Unspecified abdominal pain] Onset: 08-21-2022 Episodic Conditions associated with dizziness or vertigo (20 sources) Vertigo; Translations: [Dizziness and giddiness] Onset: 03-03-2021 03-03-2021 Episodic Other gastrointestinal disorders (20 sources) Constipation; Translations: [Constipation, unspecified] Onset: 02-01-2020 02-01-2020 Episodic Other lower respiratory disease (20 sources) Chronic cough; Translations: [Chronic cough] Onset: 10-21-2018 10-21-2018 Episodic Results Test Name Value Interpretation Reference Range Facil ity Vital Signs Date Time Vital Sign Value Performing Clinician Faci lity 10-02-2023 10:31-0500 Blood Pressure Cuff Size TATI MCCABE MD [facility] 10-02-2023 10:31-0500 Blood Pressure Location TATI MCCABE MD [facility] 10-02-2023 10:31-0500 Blood Pressure Method TTAI MCCABE MD [address] [place] [address] 10-02-2023 10:31-0500 Body temperature 97.34 [degF] TATI MCCABE MD [address] [place] [address] 10-02-2023 10:31-0500 Diastolic Blood Pressure Non-Invasive 80 mm[Hg] TATI MCCABE MD [address] [place] [address] 10-02-2023 10:31-0500 Heart rate 65 /min TAIT MCCABE MD [address] [place] [address] 10-02-2023 10:31-0500 Reason For Taking VItal Signs TATI MCCABE MD [address] [place] [address] 10-02-2023 10:31-0500 Respiratory rate 16 /min TATI MCCABE MD [facility] 10-02-2023 10:31-0500 Systolic Blood Pressure Non-Invasive 143 mm[Hg] TATI MCCABE MD [facility] 10-02-2023 06:41-0500 Blood Pressure Cuff Size TATI MCCABE MD [facility] 10-02-2023 06:41-0500 Blood Pressure Location TATI MCCABE MD [facility] 10-02-2023 06:41-0500 Blood Pressure Method TATI MCCABE MD [facility] 10-02-2023 06:41-0500 Body temperature 97.7 [degF] TATI MCCABE MD [facility] 10-02-2023 06:41-0500 Diastolic Blood Pressure Non-Invasive 60 mm[Hg] TATI MCCABE MD [address] [place] [address] 10-02-2023 06:41-0500 Heart rate 66 /min TATI MCCABE MD [facility] 10-02-2023 06:41-0500 Reason For Taking VItal Signs TATI MCCABE MD [address] [place] [address] 10-02-2023 06:41-0500 Respiratory rate 16 /min TATI MCCABE MD [address] [place] [address] 10-02-2023 06:41-0500 Systolic Blood Pressure Non-Invasive 140 mm[Hg] TATI MCCABE MD [address] 10-02-2023 03:45-0500 Blood Pressure Cuff Size TATI MCCABE MD [address] [place] [address] 10-02-2023 03:45-0500 Blood Pressure Location TATI MCCABE MD [address] [place] [address] 10-02-2023 03:45-0500 Blood Pressure Method TATI MCCABE MD [address] [place] [address] 10-02-2023 03:45-0500 Body temperature 97.7 [degF] TATI MCCABE MD [address] 10-02-2023 03:45-0500 Diastolic Blood Pressure Non-Invasive 62 mm[Hg] TATI MCCABE MD [address] [place] [address] 10-02-2023 03:45-0500 Heart rate 81 /min TATI MCCABE MD [address] [place] [address] 10-02-2023 03:45-0500 Reason For Taking VItal Signs TATI MCCABE MD [address] [place] [address] 10-02-2023 03:45-0500 Respiratory rate 16 /min TATI MCCABE MD [address] [place] [address] 10-02-2023 03:45-0500 Systolic Blood Pressure Non-Invasive 125 mm[Hg] TATI MCCABE MD [address] [place] [address] 10-01-2023 22:44-0500 Heart rate 80 /min TATI MCCABE MD [address] [place] [address] 10-01-2023 18:48-0500 Heart rate 51 /min TATI MCCABE MD [address] [place] [address] 10-01-2023 03:41-0500 Heart rate 54 /min TATI MCCABE MD [address] [place] [address] 09-30-2023 03:32-0500 Heart rate 50 /min TATI MCCABE MD [address] [place] [address] 09-29-2023 22:53-0500 Heart rate 50 /min TATI MCCABE MD [address] [place] [address] 09-29-2023 18:30-0500 Heart rate 53 /min TATI MCCABE MD [address] [place] [address] 09-29-2023 15:53-0500 Mean blood pressure 84 mm[Hg] TATI MCCABE MD [address] [place] [address] 09-29-2023 14:30-0500 Mean blood pressure 84 mm[Hg] TATI MCCABE MD [address] [place] [address] 09-29-2023 14:15-0500 Mean blood pressure 95 mm[Hg] TATI MCCABE MD [address] [place] [address] 09-29-2023 12:00-0500 Body temperature 97.7 [degF] TATI MCCABE MD [address] 09-29-2023 08:06-0500 Body temperature 98.6 [degF] TATI MCCABE MD [address] [place] [address] 09-28-2023 23:46-0500 Body height 165.1 cm TATI MCCABE MD [address] [place] [address] 09-28-2023 23:46-0500 Body weight 84.8 kg TATI MCCABE MD [address] [place] [address] 09-28-2023 23:46-0500 Body weight 31.11 kg/m2 TATI MCCABE MD [facility] 01-09-2023 13:28-0400 Body height 170.2 cm Brice Torrezry DO Work Phone: [facility] 01-09-2023 13:28-0400 Body weight 80.29 kg Brice Torrezry DO Work Phone: [facility] 01-09-2023 13:28-0400 Respiratory rate 12 /min Brice Torrezry DO Work Phone: [facility] 11-08-2022 10:10-0500 Body height 170.2 cm Brice Torrezry DO Work Phone: [facility] 11-08-2022 10:10-0500 Body weight 79.83 kg Brice Torrezry DO Work Phone: [facility] 11-06-2022 14:02-0500 Body weight 79.83 kg Isabella Yung MD Work Phone: [facility] 11-06-2022 14:02-0500 Diastolic blood pressure 86 mm[Hg] Isabella Yung MD Work Phone: [facility] 11-06-2022 14:02-0500 Heart rate 67 /min Isabella Yung MD Work Phone: [facility] 11-06-2022 14:02-0500 Respiratory rate 16 /min Isabella Yung MD Work Phone: [facility] 11-06-2022 14:02-0500 Systolic blood pressure 158 mm[Hg] Isabella Yung MD Work Phone: [facility] 08-30-2022 11:36-0500 Body weight 79.83 kg Clair Arrieta APRN.ANNEALING FURNACE TENDER Work Phone: [facility] 08-30-2022 11:36-0500 Diastolic blood pressure 82 mm[Hg] Clair Arrieta APRN.ANNEALING FURNACE TENDER Work Phone: [facility] 08-30-2022 11:36-0500 Heart rate 68 /min Clair Arrieta LOZENGE DOUGH MIXER.ANNEALING FURNACE TENDER Work Phone: [facility] 08-30-2022 11:36-0500 Respiratory rate 16 /min Clair Arrieta LOZENGE DOUGH MIXER.ANNEALING FURNACE TENDER Work Phone: [facility] 08-30-2022 11:36-0500 Systolic blood pressure 128 mm[Hg] Clair Arrieta LOZENGE DOUGH MIXER.ANNEALING FURNACE TENDER Work Phone: [facility] 08-12-2022 13:17-0500 Heart rate 68 /min Cathy Russo MD Work Phone: [facility] 08-12-2022 13:17-0500 SaO2% (BldA) [Mass fraction] 95 % Cathy Russo MD Work Phone: [facility] 08-12-2022 13:07-0500 Diastolic blood pressure 87 mm[Hg] Cathy Russo MD Work Phone: [facility] 08-12-2022 13:07-0500 Respiratory rate 16 /min Cathy Russo MD Work Phone: [facility] 08-12-2022 13:07-0500 Systolic blood pressure 170 mm[Hg] Cathy Russo MD Work Phone: [facility] 08-12-2022 11:49-0500 Body temperature 98.01 [degF] Cathy Russo MD Work Phone: [facility] 07-30-2022 16:20-0500 Body height 170.2 cm Cathy Russo MD Work Phone: [facility] 07-30-2022 16:20-0500 Body temperature 97.5 [degF] Cathy Russo MD Work Phone: [facility] 07-30-2022 16:20-0500 Body weight 79.02 kg Cathy Russo MD Work Phone: [facility] 07-30-2022 16:20-0500 Diastolic blood pressure 86 mm[Hg] Cathy Russo MD Work Phone: [facility] 07-30-2022 16:20-0500 Heart rate 70 /min Cathy Russo MD Work Phone: [facility] 07-30-2022 16:20-0500 SaO2% (BldA) [Mass fraction] 96 % Cathy Russo MD Work Phone: [facility] 07-30-2022 16:20-0500 Systolic blood pressure 134 mm[Hg] Cathy Russo MD Work Phone: [facility] 07-02-2022 18:54-0400 Body weight 78.93 kg Isabella Yung MD Work Phone: [facility] 07-02-2022 18:54-0400 Diastolic blood pressure 70 mm[Hg] Isabella Yung MD Work Phone: [facility] 07-02-2022 18:54-0400 Heart rate 77 /min Isabella Yung MD Work Phone: [facility] 07-02-2022 18:54-0400 SaO2% (BldA) [Mass fraction] 95 % Isabella Yung MD Work Phone: [facility] 07-02-2022 18:54-0400 Systolic blood pressure 118 mm[Hg] Isabella Yung MD Work Phone: [facility] 03-15-2022 16:30-0400 Body weight 80.29 kg Isabella Yung MD Work Phone: [facility] 03-15-2022 16:30-0400 Diastolic blood pressure 68 mm[Hg] Isabella Yung MD Work Phone: [facility] 03-15-2022 16:30-0400 Heart rate 67 /min Isabella Yung MD Work Phone: [facility] 03-15-2022 16:30-0400 SaO2% (BldA) [Mass fraction] 97 % Isabella Yung MD Work Phone: [facility] 03-15-2022 16:30-0400 Systolic blood pressure 122 mm[Hg] Isabella Yung MD Work Phone: [facility] Encounters Encounter Date Encounter Type Care Provider Facility Start: 11-22-2023 End: 11-27-2023 Evaluation and management of inpatient DR ISABELLA YUNG MD Facility:A Start: 11-21-2023 End: 11-21-2023 Emergency department patient visit TRI WELSH [facility] Start: 11-21-2023 Telephone encounter Isabella ulloa MD Work Phone: [facility] [place] Procedures Date Procedure Procedure Detail Performing Clinician Start: 11-19-2022 Mri any jt lower ext rem w/o contrast matrl Brice Driver DO Work Phone: Start: 08-26-2022 Ct abdomen & pelvis w/contrast material Isabella Yung MD Work Phone: Start: 08-12-2022 Colonoscopy flx dx w /collj spec when pfrmd Cathy Russo MD Work Phone: Start: 02-05-2022 Us abdominal real ti me w/image limited Isabella Yung MD Work Phone: Appendectomy ABRHAAM VU MD Esophageal hiatus he rnia repair ABRAHAM VU MD Plan of Treatment Date Care Activity Detail Author Start: 09-28-2033 Urine microalbumin profile DTa P,Tdap,Td Vaccine (2 - Td or Tdap) [facility] Start: 11-04-2024 Hepatitis B screening Urine Al bumin:Creatinine Ratio [facility] Start: 11-04-2024 Hepatitis B surface antibody level LDL Cholesterol [facility] Start: 02-02-2024 Hemoglobin A1c measurement HbA1C [facility] Start: 11-06-2023 SHINGRIX VACCINE (1 of 2) CELAYA GRIX VACCINE (1 of 2) [facility] Immunizations Immunization Date Immunization Notes Care Provider Fa cility 09-28-2023 tetanus toxoid, redu gracie diphtheria toxoid, and acellular pertussis vaccine, adsorbed TATI MCCABE MD [facility] 11-06-2022 pneumococcal polysaccharide vaccine, 23 valent Brice Driver DO Work Phone: [facility] Work Phone: 06-10-2022 influenza virus vacc ine, unspecified formulation Mri (I-Stat/1.5t) Work Phone: [facility] 07-15-2021 COVID-19 vaccine, fu ll dose (MODERNA) Us 2 Work Phone: [facility] Work Phone: 07-13-2021 influenza virus vacc ine, unspecified formulation TATI MCCABE MD [facility] 07-13-2021 influenza, high-dose , quadrivalent vaccine (FLUZONE HIGH DOSE QUADRIVALENT) Us 2 Work Phone: [facility] 11-01-2020 COVID-19 vaccine, fu ll dose (MODERNA) Us 2 Work Phone: [facility] 10-04-2020 COVID-19 vaccine, fu ll dose (MODERNA) Us 2 Work Phone: [facility] 07-12-2020 influenza virus vacc ine, unspecified formulation TATI MCCABE MD [facility] 07-12-2020 influenza, high-dose , quadrivalent vaccine (FLUZONE HIGH DOSE QUADRIVALENT) Us 2 Work Phone: [facility] 06-21-2019 influenza virus vacc ine, unspecified formulation TATI MCCABE MD [facility] 06-21-2019 influenza, high dose seasonal, preservative-free Us 2 Work Phone: [facility] 06-21-2019 pneumococcal conjuga te vaccine, 13 valent Us 2 Work Phone: [facility] 06-23-2018 influenza virus vacc ine, unspecified formulation TATI MCCABE MD [facility] 05-16-2018 influenza virus vacc ine, unspecified formulation TATI MCCABE MD [facility] 05-16-2018 influenza, high dose seasonal, preservative-free Us 2 Work Phone: [facility] Work Phone: 06-27-2017 influenza virus vacc ine, unspecified formulation TATI MCCABE MD [facility] 06-27-2017 influenza, seasonal, injectable Us 2 Work Phone: [facility] 07-08-2016 influenza virus vacc ine, unspecified formulation TATI MCCABE MD [facility] 07-08-2016 influenza, seasonal, injectable Us 2 Work Phone: [facility] Payers Date Payer Category Payer Medicare [id number] 2021 Medicare [employer] MEDICARE A ETNA MEDICARE PPO [id number] 2021-Present [phone] [address] [place] [address] PPO [id number] 2021 Medicare [employer] MEDICARE A ETNA MEDICARE PPO [id number] 2021-Present [phone] [address] [place] [address] PPO [id number] 2021 Medicare [id number] 1934 Unknown [id number] 1934 Unknown [id number] 1934 Unknown [id number] 1934 Unknown [id number] 1934 Unknown [id number] 1934 Unknown [id number] 1934 Unknown [id number] 1934 Unknown [id number] 1934 Unknown [id number] Social History Date Type Detail Facility Start: 09-01-2019 End: 08-12-2022 Tobacco smoking status NHIS Never smoked tobacco [facility] Start: 02-05-2021 End: 11-07-2023 Alcohol intake Current drinker of alcohol (finding) [facility] Start: 08-21-2020 End: 02-05-2021 Alcohol intake [facility] Start: 09-01-2019 History SDOH Alcohol Frequency 4 [facility] Start: 09-01-2019 History SDOH Alcohol Std Drinks 1 [facility] Start: 1935 Sex Assigned At Male [facility] Start: 01-26-2022 End: 08-12-2022 Exposure to SARS-CoV-2 (event) Not sure [facility] Start: 09-01-2019 End: 08-12-2022 Tobacco use and exposure Former smokeless tobacco user [facility] Start: 09-01-2019 End: 08-21-2020 Alcohol Use Disorder Identification Test - Consumption [AUDIT-C] [facility] How often to you hav e a drink containing alcohol? 2-3 time sa week [facility] How many standard dr inks containing alcohol do you have on a typical day? 1 or 2 [facility] How often do you hav e 6 or more drinks on 1 occasion? Never [facility] Adult Depression Scr eening Assessment 0 [facility] Start: 08-20-2021 Gender identity Identifies as male gender (finding) [facility] Start: 08-20-2021 Sexual orientation Heterosexual (finding) [facility] Tobacco Nicotine Use: qu it chewing several years ago. Type: Oral (Snuff, Chew). [facility] Tobacco smoking status [facility] Are you now , , , , never or living with a partner? [facility] How hard is it for y ou to pay for the very basics like food, housing, medical care, and heating Not very hard [facility] Do you feel stress - tense, restless, nervous, or anxious, or unable to sleep at night because your mind is troubled all the time - these days [OSQ] Rather much [facility] (I/We) worried [facility] (my/our) food would run out before (I/we) got money to buy more. Never true [facility] In the past 12 month s, was there a time when you were not able to pay the mortgage or rent on time? No [facility] Medical Equipment Procedure Code Equipment Code Equipment Origin al Text Equipment Identifier Dates Test blood sugar (s) 2 times daily. Dx: Type 2 DM - Uncontrolled E11.65 Insulin: No Start: 10-21-2018 Functional Status Date Assessment Result Facility 10-02-2023 Functional Status Room check performed [facility] 10-02-2023 Functional Status [facility] 10-02-2023 Functional Status [facility] 10-02-2023 Functional Status Mod I [facility] 10-02-2023 Functional Status [facility] 10-02-2023 Functional Status B[facility] b ed [facility] 10-01-2023 Functional Status One assist [facility] 10-01-2023 Functional Status [facility] 10-01-2023 Functional Status Mod I [facility] 10-01-2023 Functional Status not tested - d oes not have stairs at home [facility] 09-30-2023 Functional Status [facility] 09-30-2023 Functional Status [facility] 09-30-2023 Functional Status Single level home [facility] 09-30-2023 Functional Status Done [facility] 09-30-2023 Functional Status elevated on pillows [facility] 09-29-2023 Functional Status [facility] 09-29-2023 Functional Status [facility] 09-29-2023 Functional Status [facility] 09-29-2023 Functional Status [facility] 09-29-2023 Functional Status Transparent silicone dr moralez [facility] 09-29-2023 Functional Status [facility] 09-28-2023 Functional Status Sensory Defici ts Hearing deficit, left ear, Hearing deficit, right ear [facility] Mental Status Date Assessment Result Facility 10-02-2023 Mental Status Orientation Oriented x 4 [facility] 10-02-2023 Mental Status [facility] 10-01-2023 Mental Status [facility] 10-01-2023 Mental Status [facility] 10-01-2023 Mental Status [facility] Clinical Notes 02-05-2022 to 11-24-2023 Telephone Encounter - Meera Jacobson APRN.CNP - 11/24/2023 3:26 PM EDTTelephone Encounter - Isaura Quinonez RN - 11/24/2023 8:45 AM EDT Note Date & Type Note Facility 11-24-2023 Miscellaneous Notes Noted, plan for TCM once discharged Call placed to Inna and she reported she did take patient to [facility] ER and patient was admitted for several small strokes. No fractures. Isaura Quinonez RN Did not see message till now. Agree with ER evaluation per protocol if pain severe and not able to walk since needs someone to evaluate clinically as well as read the xray results right away to determine treatment recommendations and avoid delays in treatment. Check on patient Friday to see if went to ER. Spouse Inna calls to report that patient has had two falls recently and landed on same hip. Inna reports that patient is having pain and trouble bearing weight on hip and hip is swollen. She reports that she is not sure if hip is out of place or fractured. Per triage protocol recommended ER. Inna declines. Asks if Dr. Yung would send order to [facility] for x-ray. Again recommended ER for prompt treatment. Declined. Isaura Quinonez RN documented in this encounter [facility] 10-15-2023 Note ORIGINAL EXAMINATION: CT OF THE HEAD WITHOUT CONTRAST 10/15/2023 9:38 am TECHNIQUE: CT of the head was performed without the administration of intravenous contrast. Automated exposure control, iterative reconstruction, and/or weight based adjustment of the mA/kV was utilized to reduce the radiation dose to as low as reasonably achievable. COMPARISON: Head CT, 09/29/2023 HISTORY: ORDERING SYSTEM PROVIDED HISTORY: Reason for Exam: left frontal IPH RECENT FALL, COMPLAINS OF UNSTEADY GAIT,HEADACHES,VISION CHANGES FINDINGS: BRAIN/VENTRICLES: There is no acute intracranial hemorrhage, mass effect or midline shift. Previously identified intraparenchymal hemorrhage in the high left frontal lobe has resolved. Minor low-density changes are present at the site of previous hemorrhage in the high left frontal lobe compatible with minor encephalomalacia. Previously identified small left frontal subdural hematoma has also resolved. There is age-appropriate cerebral atrophy with evidence of chronic periventricular small vessel ischemic disease. No abnormal extra-axial fluid collection. The mccabe-white differentiation is maintained without evidence of an acute infarct. There is no evidence of hydrocephalus. ORBITS: The visualized portion of the orbits demonstrate no acute abnormality. SINUSES: The visualized paranasal sinuses and mastoid air cells demonstrate no acute abnormality. SOFT TISSUES/SKULL: No acute abnormality of the visualized skull or soft tissues. IMPRESSION: Intraparenchymal hemorrhage in the high left frontal lobe seen on the previous exam has resolved. Small left frontal subdural hematoma has also resolved. No acute intracranial hemorrhage, mass effect or midline shift is identified. Senescent changes as above. Interpreted by: Wero Martinez MD Preliminary Report By: Wero Martinez MD Electronically signed By Wero Martinez MD Dictated Date: 10/15/2023 10:41:38 AM Prelim Date: 10/15/2023 10:44:17 AM Sign Date: 10/15/2023 10:44:17 AM Ordering Provider: [facility] 10-02-2023 Discharge summary Date of Service 10/02/2023 Discharge Diagnosis Subdural hemorrhage A-fib Fall Headache Hypertension Constipation Vertigo Diabetes History of hypothyroidism Additional Orders: Discontinued: Albuterol (Eqv-Proventil HFA) 90 mcg/inh inhalation aerosol,0 Refill(s) Other status: Consult Home Health - OT,10/02/23 12:43:00 EST, Home Therapy Order: OT Eval & Treat, Home Therapy Instruction: Full weight bearing, Reason: General Debility(Complete) Other status: Consult Home Health - PT,10/02/23 12:43:00 EST, Home Therapy Order: PT Eval & Treat, Reason: General Debility, Home Therapy Instruction: Full weight bearing(Complete) Other status: Consult Home Health - RN,10/02/23 12:43:00 EST, Reason: Disease management(Complete) Other status: Discharge,10/02/23 12:43:00 EST, Discharged to: Home(Complete) Ordered: Discharge Activity,Resume your pre-hospitalization activity, 10/02/23 12:43:00 EST Ordered: Discharge Diet,No changes were made to your diet during your hospital stay. Please resume your pre hospitalization diet on discharge., 10/02/23 12:43:00 EST Ordered: Keppra 500 mg oral tablet,Dose : 500 mg = 1 tab(s), Oral, BID, # 60 tab(s), 0 Refill(s), Pharmacy: [id number], 165.1, cm, 09/28/23 23:46:00 EST, Height, kg, 09/28/23 23:46:00 EST, Dosing Weight Ordered: Norvasc 2.5 mg oral tablet,Dose : 2.5 mg = 1 tab(s), Oral, BID, # 60 tab(s), 0 Refill(s), Pharmacy: [id number], 165.1, cm, 09/28/23 23:46:00 EST, Height, kg, 09/28/23 23:46:00 EST, Dosing Weight Discontinued: Paxlovid 300 mg-100 mg Dose Pack oral tablet,Dose = 1 packet(s), Oral, BID, Take 1 Packet = two 150mg nirmatrelvir tabs and one 100mg ritonavir tab. 3 tablets to be taken together by mouth twice a day for 5 days, # 5 EA, 0 Refill(s) Ordered: Protonix 40 mg oral enteric coated tablet,Dose : 40 mg = 1 tab(s), Oral, qDayAC, # 30 tab(s), 0 Refill(s), Pharmacy: [id number], 165.1, cm, 09/28/23 23:46:00 EST, Height, kg, 09/28/23 23:46:00 EST, Dosing Weight Ordered: Tylenol 325 mg oral capsule,Dose : 650 mg =, Oral, q4h, PRN Pain, scale 1-6, 0 Refill(s) Discontinued: atorvastatin 40 mg oral tablet,0 Refill(s) Discontinued: doxycycline hyclate 100 mg oral tablet,0 Refill(s), 84.8 Discontinued: gabapentin 300 mg oral capsule,0 Refill(s), 84.8 Ordered: losartan 50 mg oral tablet,Dose : 50 mg = 1 tab(s), Oral, qDay, # 30 tab(s), 0 Refill(s), Pharmacy: [id number], 165.1, cm, 09/28/23 23:46:00 EST, Height, kg, 09/28/23 23:46:00 EST, Dosing Weight Hospital Course Patient is an 87-year-old male with past medical history of type 2 diabetes, chronic back pain, hypothyroidism, dementia, multiple falls who presented to [facility] as a transfer from [facility]. Patient was evaluated at [facility] in the emergency department where he underwent a CT of the head following a fall which showed an acute left frontal IPH without midline shift or mass effect. CT cervical spine negative for any acute fracture or subluxation. Patient was transferred to [facility] for further workup and evaluation. Repeat noncontrast CT redemonstrated the left frontal IPH with mild adjacent edema, questionable 6 mm hyperdense foci in the anterior left frontal lobe extra-axial space which could possibly represent subdural blood versus artifact per neurosurgery. Patient was admitted to the SICU under neurosurgery service. No surgical intervention necessary. Due to the appearance of the hemorrhage being rather rounded in shape there was a concern for some possible lesion. CT abdomen and thorax ordered to evaluate for possible metastatic disease which was negative. Recommend follow-up of CT scan in 2 weeks and MRI in 6 weeks per neurosurgery. Patient was found to have A-fib and was evaluated by cardiology. Hold off on beta-blockers given slow ventricular rate. Follow-up with EP in the outpatient setting. Anticoagulation cannot be started until cleared by neurosurgery. Echocardiogram showed an EF of 55 to 60%, no regional wall motion abnormalities. Unable toassess diastolic function. Patient transferred out of the SICU and to the hospitalist service. Therapy recommending inpatient initially however patient with significant improvement and physical therapy recommended discharge to home with home health for home PT. Patient was seen in his room on day of discharge with family at bedside. Patient states increased headache with physical therapy this is likely secondary to his head injury. Patient states the pain resolves with rest. Patient to continue Tylenol as needed for headaches. Follow-up with neurosurgery for continued evaluation and repeat CT and MRI scans. Patient to follow-up with his PCP in the outpatient setting. Patient was started on losartan and Norvasc for blood pressure control. Prescription sent to patient's pharmacy. Patient to follow-up with general cardiology as well as EP in the outpatient setting for further evaluation. Case discussed with collaborating physician Dr. Mccabe. Allergies penicillin Consults Consult to Physician - Ordered -- 09/29/23 0:26:00 CIARA CURTIS AKBAR MD, Routine, new onset aflutter Imaging Results and Diagnostics CT Abdomen/Pelvis w/Contrast Result Date: September 29, 2023 Verified By: NATASHA GONZALEZ MD CLINICAL STATEMENT: IMPRESSION: No acute abnormality identified. No definite evidence for abdominalmalignancy. CT Thorax w/ Contrast Result Date: September 29, 2023 Verified By: NATASHA GONZALEZ MD CLINICAL STATEMENT: IMPRESSION: Very prominent motion artifact. No acute finding or definite intrathoracicmalignancy. CT Head or Brain w/o Contrast Result Date: September 29, 2023 Verified By: FRANKLIN VANG MD CLINICAL STATEMENT: IMPRESSION: Unchanged left frontal intraparenchymal hematoma and small left frontalsubdural hematoma. No significant mass effect. No new intracranial hemorrhage. Moderate brain atrophy and chronic microvascular angiopathy. CT Head or Brain w/o Contrast Result Date: September 28, 2023 Verified By: ADAMS ABEBE MD CLINICAL STATEMENT: IMPRESSION: Acute intracerebral hemorrhage in the left frontal lobe measuring 1.4 x 1.5 x1.7 cm with mild adjacent edema. No midline shift or significant mass effect. Question 6 mm hyperdense focus in the inferior left frontal lobe extra-axialspace which may represent focal subdural bleed versus artifact. Soft tissue swelling of the left posterior scalp. Critical results were called by Dr. Shahriar Zaman to Dr. Pascal On 09/28/2023 at21:37. I have personally reviewed the images of this examination and agree with theresident's findings and interpretation. XR Chest 1 View Result Date: September 28, 2023 Verified By: ADAMS ABEBE MD CLINICAL STATEMENT: IMPRESSION: Low lung volumes with bibasilar streaky opacity/atelectasis. I have personally reviewed the images of this examination and agree with theresident's findings and interpretation. Objective Vitals and Measurements T: 36.3 C (Oral) TMIN: 36.3 C (Oral) TMAX: 36.9 C (Oral) HR: 65 RR: 16 BP: 143/80 SpO2: 98% Weight Dosing Weight: 84.8 kg (09/28/23) Dosing Weight: 84.8 kg (09/28/23) Code Status No qualifying data available. Admission Date 09/28/2023 Discharge Date 10/02/[address] head [facility] on 10/15/23 at 9:15am. You will go to the radiology department on the ground level of the [facility]. After CT on 10/15/23, you will go to the physician's office building for your follow up appointment and to review the CT head. MRI brain at [facility] on on 11/11/23 at 4:30pm. You will go to the radiology department on the ground level of the [facility] for your MRI. MRI results will be discussed with your at your follow up appointment with Dr. Vu on 11/17/23 at 10:15am. No aspirin, aspirin products, NSAIDS (no motrin, advil, aleve, or ibuprofen) until cleared by Dr. Vu. Contact your primary care for posthospital follow-up appointment. Follow-up with general cardiology as well as electrophysiology in the outpatient setting. Prescription sent to your pharmacy for blood pressure medications, losartan and Norvasc. Prescription for Keppra, seizure medication as prophylaxis secondary to head bleed. Follow-up with neurosurgery as directed. Contact your primary care provider for any new or worsening symptoms, return to the emergency department for further evaluation and treatment. Medications New Prescription acetaminophen (Tylenol 325 mg oral capsule)650 Milligram by mouth every 4 hours as needed Pain, scale 1-6. amLODIPine (Norvasc 2.5 mg oral tablet)1 tab(s) by mouth two (2) times a day. Refills: 0. levETIRAcetam (Keppra 500 mg oral tablet)1 tab(s) by mouth two (2) times a day. Refills: 0. losartan (losartan 50 mg oral tablet)1 tab(s) by mouth once a day. Refills: 0. pantoprazole (Protonix 40 mg oral enteric coated tablet)1 tab(s) by mouth once a day before a meal. Refills: 0. Unchanged galantamine (galantamine 8 mg oral capsule, extended release) glimepiride (glimepiride 4 mg oral tablet) levothyroxine (levothyroxine 88 mcg (0.088 mg) oral tablet) memantine (memantine 10 mg oral tablet) omeprazole (omeprazole 40 mg oral delayed release capsule) polyethylene glycol 3350 (polyethylene glycol 3350 oral powder for reconstitution) primidone (primidone 50 mg oral tablet) venlafaxine (venlafaxine 75 mg oral tablet) Discontinued albuterol (Albuterol (Eqv-Proventil HFA) 90 mcg/inh inhalation aerosol) atorvastatin (atorvastatin 40 mg oral tablet) doxycycline (doxycycline hyclate 100 mg oral tablet) gabapentin (gabapentin 300 mg oral capsule) nirmatrelvir-ritonavir (Paxlovid 300 mg-100 mg Dose Pack oral tablet)1 Packet(s) by mouth two (2) times a day for 5 Days. Take 1 Packet = two 150mg nirmatrelvir tabs and one 100mg ritonavir tab. 3 tablets to be taken together by mouth twice a day for 5 days. Follow Up Follow Up with ABRAHAM VU MD, Neurosurgery When 11/17/2023 10:15 AM EST Where: [address] [facility] [address] [place] [address]- [phone] Follow Up with ABRAHAM VU MD, Neurosurgery When 10/15/2023 09:15 AM EST Where: [address] [facility] [address] [facility] [address]- [phone] Follow Up with SHIRA TOPETE MD, Neurology Service When Where: [address] [place] [address]- [phone] Follow Up with RENAE CHEW MD When Within 1-2 days Why: Call for follow up appointment with electrophysiology. Where: [address] [facility] [address] [place] [address]- [phone] Follow Up with ANIL FLORES MD When Within 1-2 days Why: call for follow up appointment with general cardiology. Where: [address] [facility] [address] [place] [address]- [phone] Follow Up with KRZYSZTOF HORTON When Within 1-2 days Why: Call for follow-up appointment. Where: [facility] [address] [place] [address] [address] [place] [address]- Business (1) Follow Up with [facility], . When Within 1-2 days Follow Up Appointments No qualifying data available. Follow Up Labs/Studies Discharge Labs No Follow-up Labs Discharge Studies No Follow-up Studies Discharge Diet Discharge Diet - Ordered -- No changes were made to your diet during your hospital stay. Please resume your pre hospitalization diet on discharge., 10/02/23 12:43:00 EST Discharge Activity Discharge Activity - Ordered -- Resume your pre-hospitalization activity, 10/02/23 12:43:00 EST Condition on Discharge Fair Readmission Risk/Palliative Score LACE Score: 13 (09/30/23 10:38:00) Palliative Total Score: 1 (09/30/23 10:38:00) Discharge Disposition Home with Home Health Information Provided To Patient and family Time Spent >30 minutes spent planning, discussing, and educating on discharge. Digitally Signed by JAIMEE JIM on 10/02/2023 03:17 PM [facility] 10-02-2023 Hospital Discharg e instructions Patient Education 10/02/2023 12:38:43 Subdural Hematoma Evacuation, Care After Subdural Hematoma Evacuation, Care After This sheet gives you information about how to care for yourself after your procedure. Your health care provider may also give you more specific instructions. If you have problems or questions, contact your health care provider. What can I expect after the procedure? After the procedure, it is common to have: Pain in your scalp, especially in the incision area. You will be given pain medicines to control this. Constipation. Headaches. Follow these instructions at home: Incision care Follow instructions from your health care provider about how to take care of your incision. Make sure you: ?Wash your hands with soap and water before you change your bandage (dressing). If soap and water are not available, use hand diet assistant. ?Change your dressing as told by your health care provider. ?Leave stitches (sutures), skin glue, or adhesive strips in place. These skin closures may need to stay in place for 2 weeks or longer. If adhesive strip edges start to loosen and curl up, you may trim the loose edges. Do not remove adhesive strips completely unless your health care provider tells you to do that. Check your incision area every day for signs of infection. Check for: ?More redness, swelling, or pain. ?More fluid or blood. ?Warmth. ?Pus or a bad smell. Medicines Take sixi-gss-ozrvimw and prescription medicines only as told by your health care provider. Do not take blood thinners or NSAIDs unless your health care provider approves. These include aspirin, ibuprofen, naproxen, and warfarin. If you were prescribed an antibiotic medicine, use it as told by your health care provider. Do not stop using the antibiotic even if you start to feel better. Activity Avoid any situation where there is potential for another head injury, such as football, hockey, soccer, basketball, martial arts, downhill snow sports, and horseback riding. Do not do these activities until your health care provider approves. ?If you play a contact sport and you experience a head injury, follow advice from your health care provider about when you can return to the sport. If you get another injury while you are healing, you may experience another hemorrhage. Avoid excessive visual stimulation while recovering. This includes working on the computer, watching TV, and reading. Try to avoid activities that cause physical or mental stress. Stay home from work or school as directed by your health care provider. Do not drive, ride a bicycle, or use heavy machinery until your health care provider approves. Do not lift anything that is heavier than 5 lb (2.3 kg) until your health care provider approves. If physical therapy was prescribed, do exercises as told by your health care provider or physical therapist. Rest as told by your health care provider. Rest helps the brain to heal. Make sure you: ?Get plenty of sleep. Avoid staying up late at night. ?Keep a consistent sleep schedule. Try to go to sleep and wake up at about the same time every day. ?Avoid activities that cause physical or mental stress. General instructions To prevent or treat constipation while you are taking prescription pain medicine, your health care provider may recommend that you: ?Drink enough fluid to keep your urine clear or pale yellow. ?Take biyi-gbt-evxcnkg or prescription medicines. ?Eat foods that are high in fiber, such as fresh fruits and vegetables, whole grains, and beans. ?Limit foods that are high in fat and processed sugars, such as fried and sweet foods. Do not take baths, swim, or use a hot tub until your health care provider approves. You may take showers as directed by your health care provider. Limit alcohol intake to no more than 1 drink per day for non women and 2 drinks per day for men. One drink equals 12 oz of beer, 5 oz of wine, or 1 oz of hard liquor. Keep all follow-up visits as told by your health care provider. This is important. Contact a health care provider if: You have a fever. You have pain that does not get better with medicine. You have no appetite. You have constipation that does not get better with stool softeners. You have more redness, swelling, or pain around your incision. You have more fluid or blood coming from your incision. Your incision feels warm to the touch. You have pus or a bad smell coming from your incision. Get help right away if: Your incision opens. You have severe headaches. You develop confusion. You have jerky movements that you cannot control (seizure). You develop weakness or numbness on one side of your body. You have nausea or vomiting. You have vision problems. You have chest pain. You have trouble breathing. You have pain or swelling in your calves. This information is not intended to replace advice given to you by your health care provider. Make sure you discuss any questions you have with your health care provider. Document Released: 06/22/2014 Document Revised: 08/14/2018 Document Reviewed: 07/25/2017 [employer] Patient Education 2020 [employer]. Follow Up Care 09/28/2023 20:59:39 With:SHIRA TOPETE MD, Neurology Service Address: [address] [facility] [place] [address] [phone] When: Unknown With:RENAE CHEW MD Address: [address] [place] [address] [address] [place] [address]- [phone] When:1-2 days Comments:Call for follow up appointment with electrophysiology. With:ANIL FLORES MD Address: [address] [place] [address] [address] [place] [address] [phone] When:1-2 days Comments:call for follow up appointment with general cardiology. With:KRZYSZTOF HORTON Address: ADULT GERIATRICS/[address] [place] [address] [facility] (1) When:1-2 days Comments:Call for follow-up appointment. With:[facility], . Address:Unknown When:1-2 days With:ABRAHAM VU MD, Neurosurgery Address: [address] [place] [phone] When:11/17/2023 10:15:00 With:ABRAHAM VU MD, Neurosurgery Address: [address] [place] [phone]- [phone] When:10/15/2023 09:15:00 [facility] 10-02-2023 Note Discharge Instructions Thank you for allowing [facility] to assist you with your healthcare needs. The following is important discharge information regarding your hospital visit. Your Care Team KRZYSZTOF HORTON MD Your Diagnosis A-fib Fall Headache Subdural hemorrhage What to do next Instructions From Your Doctor CT head [facility] on 10/15/23 at 9:15am. You will go to the radiology department on the ground level of the [facility]. After CT on 10/15/23, you will go to the physician's office building for your follow up appointment and to review the CT head. MRI brain at [facility] on on 11/11/23 at 4:30pm. You will go to the radiology department on the ground level of the [facility] for your MRI. MRI results will be discussed with your at your follow up appointment with Dr. Vu on 11/17/23 at 10:15am. No aspirin, aspirin products, NSAIDS (no motrin, advil, aleve, or ibuprofen) until cleared by Dr. Vu. Contact your primary care for posthospital follow-up appointment. Follow-up with general cardiology as well as electrophysiology in the outpatient setting. Prescription sent to your pharmacy for blood pressure medications, losartan and Norvasc. Prescription for Keppra, seizure medication as prophylaxis secondary to head bleed. Follow-up with neurosurgery as directed. Contact your primary care provider for any new or worsening symptoms, return to the emergency department for further evaluation and treatment. Scheduled Follow-Up Appointments Appointment Type When With Where Contact InformationCT Head or Brain w/o Contrast 10/15/2023 09:15 AM EST Radiology [phone] NS OV 10/15/2023 09:15 AM EST ABRAHAM VU MD Neurosurgery [address] [phone] MRI Brain w/ + w/o Contrast 11/11/2023 04:30 PM EST Radiology [phone] NS OV 11/17/2023 10:15 AM EST ABRAHAM VU MD Neurosurgery [address] [phone] Follow Up Appointments Follow Up with ABRAHAM VU MD, Neurosurgery When 11/17/2023 10:15 AM EST Where: [address] [place] [address] [phone] Follow Up with ABRAHAM VU MD, Neurosurgery When 10/15/2023 09:15 AM EST Where: 2600 [facility] [address] [place] [address] [phone] Follow Up with SHIRA TOPETE MD, Neurology Service When Where: [address] [place] [phone] Follow Up with RENAE CHEW MD When Within 1-2 days Why: Call for follow up appointment with electrophysiology. Where: [address] [facility] [address] [place] [address] [phone] Follow Up with ANIL FLORES MD When Within 1-2 days Why: call for follow up appointment with general cardiology. Where: [address] [facility] [address] [place] [address]- [phone] Follow Up with KRZYSZTOF HORTON When Within 1-2 days Why: Call for follow-up appointment. Where: ADULT GERIATRICS/[facility] [address] [place] [address]- Business (1) Follow Up with [facility], . When Within 1-2 days The Following Activity and Diet Have Been Ordered for You Discharge Activity - Ordered -- Resume your pre-hospitalization activity, 10/02/23 12:43:00 EST Discharge Diet - Ordered -- No changes were made to your diet during your hospital stay. Please resume your pre hospitalization diet on discharge., 10/02/23 12:43:00 EST The Following Equipment Has Been Ordered for You No qualifying data available. The Following Treatments Have Been Ordered for You Discharge Labs No qualifying data available. Discharge Radiology No qualifying data available. Other Therapies No qualifying data available. Post Acute Orders No qualifying data available. Someone Will Contact You Regarding These Home Health Referrals No home referrals have been ordered for you. No one will call you. Allergies penicillin Medications Please ask your primary doctor or pharmacist before taking any other medication not listed, including over the counter drugs, herbal medications, vitamins and or supplements as they may interact with your home medications. What How Much When Instructions Last Dose New acetaminophen (Tylenol 325 mg oral capsule) 650 Milligram by mouth Every 4 hours as needed for Pain, scale 1-6 New amLODIPine (Norvasc 2.5 mg oral tablet) 1 tab(s) by mouth Two (2) times a day Pickup at [facility]24 New levETIRAcetam (Keppra 500 mg oral tablet) 1 tab(s) by mouth Two (2) times a day Pickup at [facility] New losartan (losartan 50 mg oral tablet) 1 tab(s) by mouth Once a day Pickup at [facility]24 New pantoprazole (Protonix 40 mg oral enteric coated tablet) 1 tab(s) by mouth Once a day before a meal Pickup at [facility] Unchanged galantamine (galantamine 8 mg oral capsule, extended release) Unchanged glimepiride (glimepiride 4 mg oral tablet) Unchanged levothyroxine (levothyroxine 88 mcg (0.088 mg) oral tablet) Unchanged memantine (memantine 10 mg oral tablet) Unchanged omeprazole (omeprazole 40 mg oral delayed release capsule) Unchanged polyethylene glycol 3350 (polyethylene glycol 3350 oral powder for reconstitution) Unchanged primidone (primidone 50 mg oral tablet) Unchanged venlafaxine (venlafaxine 75 mg oral tablet) Pharmacy Information [facility]: [address] [place], [place] [phone] What How Much When Comments Stop Taking albuterol (Albuterol (Eqv-Proventil HFA) 90 mcg/ inh inhalation aerosol) Stop Taking atorvastatin (atorvastatin 40 mg oral tablet) Stop Taking doxycycline (doxycycline hyclate 100 mg oral tablet) Stop Taking gabapentin (gabapentin 300 mg oral capsule) Stop Taking nirmatrelvir-ritonavir (Paxlovid 300 mg-100 mg Dose Pack oral tablet) 1 Packet(s) by mouth Two (2) times a day Duration: 5 Days Take 1 Packet = two 150mg nirmatrelvir tabs and one 100mg ritonavir tab. 3 tablets to be taken together by mouth twice a day for 5 days Please take this list to your next doctor s visit. Bring all medications you take, including over the counter medications, herbals and other supplements with you to your doctor s visit. Patients and families are reminded to discard old lists and to update any records with all medication providers or retail pharmacies. Education Materials Subdural Hematoma Evacuation, Care After This sheet gives you information about how to care for yourself after your procedure. Your health care provider may also give you more specific instructions. If you have problems or questions, contact your health care provider. What can I expect after the procedure? After the procedure, it is common to have: Pain in your scalp, especially in the incision area. You will be given pain medicines to control this. Constipation. Headaches. Follow these instructions at home: Incision care Follow instructions from your health care provider about how to take care of your incision. Make sure you: ? Wash your hands with soap and water before you change your bandage (dressing). If soap and water are not available, use hand diet assistant. ? Change your dressing as told by your health care provider. ? Leave stitches (sutures), skin glue, or adhesive strips in place. These skin closures may need to stay in place for 2 weeks or longer. If adhesive strip edges start to loosen and curl up, you may trim the loose edges. Do not remove adhesive strips completely unless your health care provider tells you to do that. Check your incision area every day for signs of infection. Check for: ? More redness, swelling, or pain. ? More fluid or blood. ? Warmth. ? Pus or a bad smell. Medicines Take pbhl-hhx-pllzucv and prescription medicines only as told by your health care provider. Do not take blood thinners or NSAIDs unless your health care provider approves. These include aspirin, ibuprofen, naproxen, and warfarin. If you were prescribed an antibiotic medicine, use it as told by your health care provider. Do not stop using the antibiotic even if you start to feel better. Activity Avoid any situation where there is potential for another head injury, such as football, hockey, soccer, basketball, martial arts, downhill snow sports, and horseback riding. Do not do these activities until your health care provider approves. ? If you play a contact sport and you experience a head injury, follow advice from your health care provider about when you can return to the sport. If you get another injury while you are healing, you may experience another hemorrhage. Avoid excessive visual stimulation while recovering. This includes working on the computer, watching TV, and reading. Try to avoid activities that cause physical or mental stress. Stay home from work or school as directed by your health care provider. Do not drive, ride a bicycle, or use heavy machinery until your health care provider approves. Do not lift anything that is heavier than 5 lb (2.3 kg) until your health care provider approves. If physical therapy was prescribed, do exercises as told by your health care provider or physical therapist. Rest as told by your health care provider. Rest helps the brain to heal. Make sure you: ? Get plenty of sleep. Avoid staying up late at night. ? Keep a consistent sleep schedule. Try to go to sleep and wake up at about the same time every day. ? Avoid activities that cause physical or mental stress. General instructions To prevent or treat constipation while you are taking prescription pain medicine, your health care provider may recommend that you: ? Drink enough fluid to keep your urine clear or pale yellow. ? Take ties-mlp-zlhszbi or prescription medicines. ? Eat foods that are high in fiber, such as fresh fruits and vegetables, whole grains, and beans. ? Limit foods that are high in fat and processed sugars, such as fried and sweet foods. Do not take baths, swim, or use a hot tub until your health care provider approves. You may take showers as directed by your health care provider. Limit alcohol intake to no more than 1 drink per day for non women and 2 drinks per day for men. One drink equals 12 oz of beer, 5 oz of wine, or 1 oz of hard liquor. Keep all follow-up visits as told by your health care provider. This is important. Contact a health care provider if: You have a fever. You have pain that does not get better with medicine. You have no appetite. You have constipation that does not get better with stool softeners. You have more redness, swelling, or pain around your incision. You have more fluid or blood coming from your incision. Your incision feels warm to the touch. You have pus or a bad smell coming from your incision. Get help right away if: Your incision opens. You have severe headaches. You develop confusion. You have jerky movements that you cannot control (seizure). You develop weakness or numbness on one side of your body. You have nausea or vomiting. You have vision problems. You have chest pain. You have trouble breathing. You have pain or swelling in your calves. This information is not intended to replace advice given to you by your health care provider. Make sure you discuss any questions you have with your health care provider. Document Released: 06/22/2014 Document Revised: 08/14/2018 Document Reviewed: 07/25/2017 Elsevier Patient Education 2020 [employer] Additional Information VACCINATE! IT SAVES LIVES! Members of the community who have not yet received the COVID-19 vaccine and would like to receive it can visit one of [facility] vaccine clinics. There are many vaccine clinic locations within the [facility]. For locations and available times, please visit https://gettheshot.coronavirus.o hio.gov/. It is important to note that some COVID mobile vaccine clinics are held outdoors and may be canceled in rainy or stormy conditions. To learn more about pediatric vaccinations (ages 5-11), we invite you to visit the [facility] webpage. [email or web address]/p [email or web address]-[email or web address] [email or web address] To learn more about the COVID-19 vaccine, we invite you to visit the CDC website for a list of frequently asked questions.https://www.cdc.gov/co ronavirus/2019-ncov/vaccines/faq .html [email or web address] Patient Portal Access Instructions: Stay connected with your healthcare team and access your personal medical information anytime with the [employer] Patient Portal. Please follow the directions below to create your [employer] account: 1.Access the email account you provided upon registration to the hospital/physician office.2.Look for an invitation email from [facility].3.Open the email and access the invitation link: Accept Invitation to [facility].4.Fill in the required zapata to create your account. To access your account, visit [email or web address]. Click the blue button labeled Access Patient Portal and then log in with the username and password that you created in the steps above. You will be able to view your test results, lab results, a summary of your visits, upcoming appointments and more. There is also a convenient messaging option where you can send secure messages to your provider. In addition, you will have the ability to download any documents or summaries to your computer and/or send the information securely to a physician. Remember that your healthcare information is confidential, so carefully consider who you will allow to register on the [facility] for access to your information. You can also access the [facility] Patient [facility] on the [facility] javed. Simply click on Patient Portal and then log into your account. If you would like to receive a full copy of your medical records, please contact the [facility] Medical Records Department by calling [phone], Friday through Friday between 8 a.m. and 4:30 p.m. HOW TO SAFELY DISPOSE OF PRESCRIPTION MEDICATIONS Please use one of the following methods to safely dispose of your unused medications. 1.Use a drug disposal kit: the drug disposal pouch allows you to safely discard your old and unused drugs. Ask your nurse to give you one when you are discharged.2.Visit a local take-back location: Many local pharmacies and police departments have programs that collect old and unwanted prescription drugs. Call your local pharmacy or go to http://Netmining/5Y5Qc0n to find one close to you.3.Make use of household items: Use cat litter or old coffee grounds to dispose medications if other options are not available. Mix your drugs with these household products, seal them in an airtight container and throw it into the garbage. Call [facility]: [phone] to be sure your drugs can be disposed of in this way. Some medicines may require a different approach.4.Never flush your medications down the toilet. IF YOU HAVE BEEN PRESCRIBED AN OPIOID FOR PAIN If you have been prescribed an opioid (such as hydrocodone, oxycodone or morphine), it is critical to understand the possible side effects and risks of opioid pain medications. Even when taken as directed, opioids can have several side effects including: Tolerance, meaning you might need to take more of a medication for the same pain relief. Nausea, vomiting and/or constipation. Sleepiness, dizziness, dry mouth, confusion, depression or itching. Physical dependence, meaning you have withdrawal symptoms when a medication is stopped, can develop within a few days. KNOW YOUR RESPONSIBILITIES It is important to know exactly how much and how often to take the opioid pain medications you are prescribed. Never take opioids in higher amounts or more often than prescribed. Do not combine opioids with alcohol or other drugs that cause drowsiness, such as benzodiazepines, also known as benzos, including diazepam and alprazolam, muscle relaxants or sleep aids. Never sell or share prescription opioids. This is illegal. Store opioids in a secure place and out of reach of others (including children, family, friends and visitors). The last page of this document has been signed and retained as a CHART COPY. Signatures Patient Education Materials Subdural Hematoma Evacuation, Care After Medication Leaflets My discharge plan and instructions have been reviewed and explained to me and I,ENRICO LIVE understand my current condition and have read and understand these discharge instructions. I have received a written copy of the plan/instructions. If I have questions, I am aware that I should contact my doctor. 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 The following is important discharge information regarding your hospital visit. Your Care Team KRZYSZTOF HORTON MD Your Diagnosis A-fib Fall Headache Subdural hemorrhage What to do next Instructions From Your Doctor CT head [facility] on 10/15/23 at 9:15am. You will go to the radiology department on the ground level of the [facility]. After CT on 10/15/23, you will go to the physician's office building for your follow up appointment and to review the CT head. MRI brain at [facility] on on 11/11/23 at 4:30pm. You will go to the radiology department on the ground level of the [facility] for your MRI. MRI results will be discussed with your at your follow up appointment with Dr. Vu on 11/17/23 at 10:15am. No aspirin, aspirin products, NSAIDS (no motrin, advil, aleve, or ibuprofen) until cleared by Dr. Vu. Contact your primary care for posthospital follow-up appointment. Follow-up with general cardiology as well as electrophysiology in the outpatient setting. Prescription sent to your pharmacy for blood pressure medications, losartan and Norvasc. Prescription for Keppra, seizure medication as prophylaxis secondary to head bleed. Follow-up with neurosurgery as directed. Contact your primary care provider for any new or worsening symptoms, return to the emergency department for further evaluation and treatment. Scheduled Follow-Up Appointments Appointment Type When With Where Contact InformationCT Head or Brain w/o Contrast 10/15/2023 09:15 AM EST Radiology [phone] NS OV 10/15/2023 09:15 AM EST ABRAHAM VU MD Neurosurgery [address] [place] [phone] MRI Brain w/ + w/o Contrast 11/11/2023 04:30 PM EST Radiology [phone] NS OV 11/17/2023 10:15 AM EST ABRAHAM VU MD Neurosurgery [address] [place] [phone] Follow Up Appointments Follow Up with ABRAHAM VU MD, Neurosurgery When 11/17/2023 10:15 AM EST Where: [address] [phone] Follow Up with ABRAHAM VU MD, Neurosurgery When 10/15/2023 09:15 AM EST Where: [address] [phone] Follow Up with RENAE CHEW MD When Within 1-2 days Why: Call for follow up appointment with electrophysiology. Where: [address] [facility] [address] [place] [phone] Follow Up with ANIL FLORES MD When Within 1-2 days Why: call for follow up appointment with general cardiology. Where: [address] [facility] [address] [place] [phone] Follow Up with KRZYSZTOF HORTON When Within 1-2 days Why: Call for follow-up appointment. Where: ADULT GERIATRICS/[place] [address] [place] [address]- Business (1) Follow Up with [facility], . When Within 1-2 days The Following Activity and Diet Have Been Ordered for You Discharge Activity - Ordered -- Resume your pre-hospitalization activity, 10/02/23 12:43:00 EST Discharge Diet - Ordered -- No changes were made to your diet during your hospital stay. Please resume your pre hospitalization diet on discharge., 10/02/23 12:43:00 EST The Following Equipment Has Been Ordered for You No qualifying data available. The Following Treatments Have Been Ordered for You Discharge Labs No qualifying data available. Discharge Radiology No qualifying data available. Other Therapies No qualifying data available. Post Acute Orders No qualifying data available. Someone Will Contact You Regarding These Home Health Referrals Consult Home Health - OT - Ordered -- 10/02/23 12:43:00 EST, Home Therapy Order: OT Eval & Treat, Home Therapy Instruction: Full weight bearing, Reason: General Debility Consult Home Health - PT - Ordered -- 10/02/23 12:43:00 EST, Home Therapy Order: PT Eval & Treat, Reason: General Debility, Home Therapy Instruction: Full weight bearing Consult Home Health - RN - Ordered -- 10/02/23 12:43:00 EST, Reason: Disease management Allergies penicillin Medications Please ask your primary doctor or pharmacist before taking any other medication not listed, including over the counter drugs, herbal medications, vitamins and or supplements as they may interact with your home medications. What How Much When Instructions Last Dose New acetaminophen (Tylenol 325 mg oral capsule) 650 Milligram by mouth Every 4 hours as needed for Pain, scale 1-6 New amLODIPine (Norvasc 2.5 mg oral tablet) 1 tab(s) by mouth Two (2) times a day Pickup at [facility] New levETIRAcetam (Keppra 500 mg oral tablet) 1 tab(s) by mouth Two (2) times a day Pickup at [facility] New losartan (losartan 50 mg oral tablet) 1 tab(s) by mouth Once a day Pickup at [facility] New pantoprazole (Protonix 40 mg oral enteric coated tablet) 1 tab(s) by mouth Once a day before a meal Pickup at [facility] Unchanged galantamine (galantamine 8 mg oral capsule, extended release) Unchanged glimepiride (glimepiride 4 mg oral tablet) Unchanged levothyroxine (levothyroxine 88 mcg (0.088 mg) oral tablet) Unchanged memantine (memantine 10 mg oral tablet) Unchanged omeprazole (omeprazole 40 mg oral delayed release capsule) Unchanged polyethylene glycol 3350 (polyethylene glycol 3350 oral powder for reconstitution) Unchanged primidone (primidone 50 mg oral tablet) Unchanged venlafaxine (venlafaxine 75 mg oral tablet) Pharmacy Information [facility]: [address] [place], [place] [phone] What How Much When Comments Stop Taking albuterol (Albuterol (Eqv-Proventil HFA) 90 mcg/ inh inhalation aerosol) Stop Taking atorvastatin (atorvastatin 40 mg oral tablet) Stop Taking doxycycline (doxycycline hyclate 100 mg oral tablet) Stop Taking gabapentin (gabapentin 300 mg oral capsule) Stop Taking nirmatrelvir-ritonavir (Paxlovid 300 mg-100 mg Dose Pack oral tablet) 1 Packet(s) by mouth Two (2) times a day Duration: 5 Days Take 1 Packet = two 150mg nirmatrelvir tabs and one 100mg ritonavir tab. 3 tablets to be taken together by mouth twice a day for 5 days Please take this list to your next doctor s visit. Bring all medications you take, including over the counter medications, herbals and other supplements with you to your doctor s visit. Patients and families are reminded to discard old lists and to update any records with all medication providers or retail pharmacies. Education Materials Subdural Hematoma Evacuation, Care After This sheet gives you information about how to care for yourself after your procedure. Your health care provider may also give you more specific instructions. If you have problems or questions, contact your health care provider. What can I expect after the procedure? After the procedure, it is common to have: Pain in your scalp, especially in the incision area. You will be given pain medicines to control this. Constipation. Headaches. Follow these instructions at home: Incision care Follow instructions from your health care provider about how to take care of your incision. Make sure you: ? Wash your hands with soap and water before you change your bandage (dressing). If soap and water are not available, use hand diet assistant. ? Change your dressing as told by your health care provider. ? Leave stitches (sutures), skin glue, or adhesive strips in place. These skin closures may need to stay in place for 2 weeks or longer. If adhesive strip edges start to loosen and curl up, you may trim the loose edges. Do not remove adhesive strips completely unless your health care provider tells you to do that. Check your incision area every day for signs of infection. Check for: ? More redness, swelling, or pain. ? More fluid or blood. ? Warmth. ? Pus or a bad smell. Medicines Take mepj-loh-svuytta and prescription medicines only as told by your health care provider. Do not take blood thinners or NSAIDs unless your health care provider approves. These include aspirin, ibuprofen, naproxen, and warfarin. If you were prescribed an antibiotic medicine, use it as told by your health care provider. Do not stop using the antibiotic even if you start to feel better. Activity Avoid any situation where there is potential for another head injury, such as football, hockey, soccer, basketball, martial arts, downhill snow sports, and horseback riding. Do not do these activities until your health care provider approves. ? If you play a contact sport and you experience a head injury, follow advice from your health care provider about when you can return to the sport. If you get another injury while you are healing, you may experience another hemorrhage. Avoid excessive visual stimulation while recovering. This includes working on the computer, watching TV, and reading. Try to avoid activities that cause physical or mental stress. Stay home from work or school as directed by your health care provider. Do not drive, ride a bicycle, or use heavy machinery until your health care provider approves. Do not lift anything that is heavier than 5 lb (2.3 kg) until your health care provider approves. If physical therapy was prescribed, do exercises as told by your health care provider or physical therapist. Rest as told by your health care provider. Rest helps the brain to heal. Make sure you: ? Get plenty of sleep. Avoid staying up late at night. ? Keep a consistent sleep schedule. Try to go to sleep and wake up at about the same time every day. ? Avoid activities that cause physical or mental stress. General instructions To prevent or treat constipation while you are taking prescription pain medicine, your health care provider may recommend that you: ? Drink enough fluid to keep your urine clear or pale yellow. ? Take gvdj-eby-ppzaaoa or prescription medicines. ? Eat foods that are high in fiber, such as fresh fruits and vegetables, whole grains, and beans. ? Limit foods that are high in fat and processed sugars, such as fried and sweet foods. Do not take baths, swim, or use a hot tub until your health care provider approves. You may take showers as directed by your health care provider. Limit alcohol intake to no more than 1 drink per day for non women and 2 drinks per day for men. One drink equals 12 oz of beer, 5 oz of wine, or 1 oz of hard liquor. Keep all follow-up visits as told by your health care provider. This is important. Contact a health care provider if: You have a fever. You have pain that does not get better with medicine. You have no appetite. You have constipation that does not get better with stool softeners. You have more redness, swelling, or pain around your incision. You have more fluid or blood coming from your incision. Your incision feels warm to the touch. You have pus or a bad smell coming from your incision. Get help right away if: Your incision opens. You have severe headaches. You develop confusion. You have jerky movements that you cannot control (seizure). You develop weakness or numbness on one side of your body. You have nausea or vomiting. You have vision problems. You have chest pain. You have trouble breathing. You have pain or swelling in your calves. This information is not intended to replace advice given to you by your health care provider. Make sure you discuss any questions you have with your health care provider. Document Released: 06/22/2014 Document Revised: 08/14/2018 Document Reviewed: 07/25/2017 [employer] Patient Education 2020 archify. Additional Information VACCINATE! IT SAVES LIVES! Members of the community who have not yet received the COVID-19 vaccine and would like to receive it can visit one of [facility] vaccine clinics. There are many vaccine clinic locations within the [facility]. For locations and available times, please visit https://gettheshot.coronavirus.o sco.gov/. It is important to note that some COVID mobile vaccine clinics are held outdoors and may be canceled in rainy or stormy conditions. To learn more about pediatric vaccinations (ages 5-11), we invite you to visit the [facility] webpage. [email or web address] To learn more about the COVID-19 vaccine, we invite you to visit the CDC website for a list of frequently asked questions.https://www.cdc.gov/co ronavirus/2019-ncov/vaccines/faq .html [email or web address] Patient Portal Access Instructions: Stay connected with your healthcare team and access your personal medical information anytime with the [facility] Patient Portal. Please follow the directions below to create your [facility] account: 1.Access the email account you provided upon registration to the hospital/physician office.2.Look for an invitation email from [facility].3.Open the email and access the invitation link: Accept Invitation to [facility].4.Fill in the required zapata to create your account. To access your account, visit [facility]. Click the blue button labeled Access Patient Portal and then log in with the username and password that you created in the steps above. You will be able to view your test results, lab results, a summary of your visits, upcoming appointments and more. There is also a convenient messaging option where you can send secure messages to your provider. In addition, you will have the ability to download any documents or summaries to your computer and/or send the information securely to a physician. Remember that your healthcare information is confidential, so carefully consider who you will allow to register on the [facility] Patient Portal for access to your information. You can also access the [facility] Patient Portal on the [facility] javed. Simply click on Patient Portal and then log into your account. If you would like to receive a full copy of your medical records, please contact the [facility] Medical Records Department by calling [phone], Friday through Friday between 8 a.m. and 4:30 p.m. HOW TO SAFELY DISPOSE OF PRESCRIPTION MEDICATIONS Please use one of the following methods to safely dispose of your unused medications. 1.Use a drug disposal kit: the drug disposal pouch allows you to safely discard your old and unused drugs. Ask your nurse to give you one when you are discharged.2.Visit a local take-back location: Many local pharmacies and police departments have programs that collect old and unwanted prescription drugs. Call your local pharmacy or go to http://Apsmart.Retsly/7H3Pg2r to find one close to you.3.Make use of household items: Use cat litter or old coffee grounds to dispose medications if other options are not available. Mix your drugs with these household products, seal them in an airtight container and throw it into the garbage. Call [facility]: [phone] to be sure your drugs can be disposed of in this way. Some medicines may require a different approach.4.Never flush your medications down the toilet. IF YOU HAVE BEEN PRESCRIBED AN OPIOID FOR PAIN If you have been prescribed an opioid (such as hydrocodone, oxycodone or morphine), it is critical to understand the possible side effects and risks of opioid pain medications. Even when taken as directed, opioids can have several side effects including: Tolerance, meaning you might need to take more of a medication for the same pain relief. Nausea, vomiting and/or constipation. Sleepiness, dizziness, dry mouth, confusion, depression or itching. Physical dependence, meaning you have withdrawal symptoms when a medication is stopped, can develop within a few days. KNOW YOUR RESPONSIBILITIES It is important to know exactly how much and how often to take the opioid pain medications you are prescribed. Never take opioids in higher amounts or more often than prescribed. Do not combine opioids with alcohol or other drugs that cause drowsiness, such as benzodiazepines, also known as benzos, including diazepam and alprazolam, muscle relaxants or sleep aids. Never sell or share prescription opioids. This is illegal. Store opioids in a secure place and out of reach of others (including children, family, friends and visitors). The last page of this document has been signed and retained as a CHART COPY. Signatures Patient Education Materials Subdural Hematoma Evacuation, Care After Medication Leaflets My discharge plan and instructions have been reviewed and explained to me and I,ENRICO LIVE understand my current condition and have read and understand these discharge instructions. I have received a written copy of the plan/instructions. If I have questions, I am aware that I should contact my doctor. 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 for evaluation after fall. Upon evaluation at ED patient underwent CT head imaging which demonstrated an acute left frontal IPH without midline shift or mass effect. CT cervical spine negative for any acute fracture or subluxation. Patient was transferred to [facility] for further workup and evaluation. Repeat noncontrast CT redemonstrated left frontal IPH with mild adjacent edema, questionable 6 mm hyperdense foci in the anterior left frontal lobe extra-axial space which could possibly represent subdural blood versus artifact per neurosurgery. Patient was admitted to SICU under neurosurgery service. No surgical intervention necessary at this time. Due to the appearance of the hemorrhage being rather rounded shape concern was for some possible lesion. CT abdomen and thorax ordered to evaluate for possible metastatic disease which was negative. Recommend to follow-up with a CAT scan in 2 weeks and MRI outpatient in 6 weeks. Patient was then found to have A-fib and was evaluated by cardiology. Hold off on beta-blockers given slow ventricular rate. EP follow-up outpatient. Anticoagulation cannot be started until cleared by neurosurgery. Echocardiogram reviewed shows an EF of 55 to 60%, no regional wall motion abnormalities, unable to assess diastolic function. Patient transferred out of SICU to the 5 S. unit. Hospitalist assumed care. Therapy recommending inpatient rehab on discharge. Awaiting placement. Patient seen and evaluated today. Denies any headache today. Patient has been participating with vestibular therapy and reports improvement in his vertigo symptoms. Blood pressure has been mildly elevated at times, received 2 doses of hydralazine yesterday, starting losartan today. Also complaining of constipation. at the bedside. Objective Vitals and Measurements T: 36.6 C (Oral) TMIN: 36.5 C (Oral) TMAX: 36.7 C (Oral) HR: 64 RR: 18 BP: 164/83 SpO2: 97% Intake and Output 7AM Yesterday to 7AM Today Intake and Output (Last 24 hours) Intake Output Urine Voided 500.00 Stool Count 1.00 Total Summary Total Intake 0.00 Total Output 500.00 Fluid Balance -500.00 Physical Exam Constitutional: Patient is alert and oriented x3. In no acute distress. Eyes: PERRLA, EOM intact. ENT: hearing grossly intact, mucous membranes moist, Respiratory: Breathing nonlabored, lungs clear to auscultation bilaterally. Heart: Regular rate and rhythm. S1 S2 heard. GI: Bowel sounds x4 quadrants. No rebound tenderness or guarding. Neuro: speech clear. AGUILAR equally. memory intact Skin: no rashes or lesions noted. skin warm, dry and intact. Weight Dosing Weight: 84.8 kg (09/28/23) Dosing Weight: 84.8 kg (09/28/23) Medications Medications (18) Active Scheduled: (12) galantamine 4 mg tablet 8 mg 2 tab(s), Oral, BIDM glimepiride 2 mg Tablet 4 mg 2 tab(s), Oral, qDayM insulin lispro 100 units/mL Soln (3 mL) Give 0-15 units/dose, Subcutaneous, achs levETIRAcetam 500 mg tablet 500 mg 1 tab(s), Oral, BID levothyroxine 88 mcg tablet 88 mcg 1 tab(s), Oral, qDayAC losartan 50 mg tablet 50 mg 1 tab(s), Oral, qDay magnesium citrate Liquid 300mL 148 mL, Oral, Once memantine 10 mg tablet 10 mg 1 tab(s), Oral, BID pantoprazole 40 mg EC tablet 40 mg 1 tab(s), Oral, qDayAC polyethylene glycol 3350 - UD packet 17 gram(s) 15 mL, Oral, qDay primidone 50 mg tablet 50 mg 1 tab(s), Oral, qHS venlafaxine 75 mg Tablet 75 mg 1 tab(s), Oral, BIDM Continuous: (0) PRN: (6) acetaminophen 325 mg Tablet 650 mg 2 tab(s), Oral, q4h bisacodyl 10 mg Suppository 10 mg 1 supp, Rectal, qDay dextrose 50% Solution Disp syringe 50 mL 12.5 gram(s) 25 mL, IV Push, AsDirected hydralazine 20 mg/mL (1mL) vial 20 mg 1 mL, IV Push, q4h labetalol 5 mg/mL (4 mL) INJ 10 mg 2 mL, IV Push, q4hr ondansetron 2 mg/ 1 mL 2 mL INJ 4 mg 2 mL, IV Push, q4h Lab Results 09/30 08:11 WBC: 7.2 Hgb: 13.3 Hct: 40.0 Platelet: 167 Neutrophil %: 72.1 Glucose Level: 174 H Sodium Level: 137 Potassium Level: 4.5 BUN: 12.0 Creatinine Lvl (s): 0.74 EKG No qualifying data available. Assessment/Plan 1. A-fib 2. Subdural hemorrhage 3. Fall 4. Headache Patient is status post fall presenting to [facility]. Was transferred to [facility] S[facility] under neurosurgery service for CT head findings. Repeat noncontrast CT redemonstrated left frontal IPH with mild adjacent edema, questionable 6 mm hyperdense foci in the anterior left frontal lobe extra-axial space which could possibly represent subdural blood versus artifact per neurosurgery. No surgical intervention necessary at this time. Due to appearance of the hemorrhage being rather round shape concern was for a possible lesion. CT abdomen and thorax ordered to evaluate possible metastatic disease which was negative. Neurosurgery recommending CT scan in 2 weeks and MRI outpatient in 6 weeks to further evaluate. A-fib management per cardiology. Not on anticoagulation given above. Rate controlled therefore no antiarrhythmics ordered. Recommending outpatient EP follow-up. Echocardiogram reviewed shows an EF of 55 to 60%, no regional wall motion abnormalities, unable to assess diastolic function. Hypertension blood pressure has been slightly above goal, received 2 doses of IV hydralazine yesterday, will initiate losartan, blood pressure goal less than 140 systolic. Constipation continue MiraLAX. Will add magnesium citrate and as needed bisacodyl. Continue vestibular therapy per PT for vertigo. PT OT recommending SNF on discharge, oncology social worker involved, pending arrangements. Discussed with at the bedside. Time Spent A total of 35 minutes reviewing patient's diagnostic, labs/tests, seeing and examining the patient and documenting in the medical record, please see assessment for further details. Digitally Signed by ARJUN PATTERSON on 10/01/2023 01:31 PM [facility] 01-17-2024 Cardiology Consult note Date of Service September 29, 2023 Reason for Consultation Newly diagnosed atrial flutter History of Present Illness Patient is an 87-year-old gentleman for whom cardiology has been consulted for newly diagnosed atrial flutter with slow ventricular response. PMH:-Mentioned under assessment/plan section on the right-hand side Patient has been admitted at [facility] for a witnessed mechanical fall resulting in left frontal intraparenchymal hemorrhage with small left frontal SDH that is being managed nonsurgically. Upon initial presentation, patient was noted to be in atrial flutter with slow ventricular response due to which cardiology has been consulted for further management. Per patient's , patient has had no previous cardiac issues in the past. Patient denies exertional chest pain/SOB/orthopnea/PND/palpitations. EKG-atrial flutter with slow ventricular response, troponins x 4 negative, echocardiogram-awaited CBC and CMP within normal limits. Review of Systems CONSTITUTIONAL: Denies fevers, chills EYES: Denies any visual symptoms. EARS, NOSE, AND THROAT: No symptoms of rhinitis or sore throat. CARDIOVASCULAR: Mentioned above RESPIRATORY: No wheezing or cough GI: No nausea/vomiting, abdominal pain, hematochezia or melena. : No dysuria, urinary frequency MUSCULOSKELETAL: No new onset or worsening myalgias/arthralgias. NEUROLOGIC: Denies new headache, new onset weakness DERMATOLOGIC: Denies new rashes Physical Exam Vitals and Measurements T: 36.7 C (Oral) TMIN: 36.5 C (Oral) TMAX: 37.0 C (Axillary) HR: 50(Monitored) RR: 20 BP: 132/63 BP: 124/69(Supine) SpO2: 95% HT: 165.1 cm WT: 84.8 kg BMI: 31.11 Weight Dosing Weight: 84.8 kg (09/28/23) Dosing Weight: 84.8 kg (09/28/23) GENERAL APPEARANCE: Lying on bed; _ SKIN: Warm EXTREMITIES: No cyanosis/clubbing. [No significant pedal edema] HEENT: PERRL, EOMI. [JVD not elevated] NECK: Supple. Trachea is midline. CHEST: Symmetric. Nontender to palpation. LUNGS: Mildly diminished breath sounds in the bases HEART: [RRR] [S1, S2 +]. [No murmurs, gallops, or rubs]. ABDOMEN: Soft. No organomegaly. NEUROLOGIC: A&O, moving all four extremities. Lab Results 09/29 05:16 WBC: 8.4 Hgb: 12.5 L Hct: 37.3 L Platelet: 192 Neutrophil %: 80.1 H Glucose Level: 319 H Sodium Level: 135 L Potassium Level: 4.3 BUN: 15.0 Creatinine Lvl (s): 0.78 09/28 21:45 WBC: 12.6 H Hgb: 13.8 Hct: 40.5 Platelet: 198 Neutrophil %: 92.3 H Protime: 11.2 PT International Ratio: 1.0 Glucose Level: 236 H Sodium Level: 136 Potassium Level: 4.2 BUN: 13.0 Creatinine Lvl (s): 0.74 Assessment/Plan Primary Cardiac Diagnosis: _New onset Atrial Flutter Cardiac Diagnoses:- Paroxysmal, atrial flutter, in controlled ventricular rate [[id number] score- 4], HAS-BLED:2, _, _ Dyslipidemia Type 2 Diabetes Mellitus Non-cardiac diagnoses:- Traumatic left frontal intraparenchymal hemorrhage with small left frontal SDH Dementia Hold off on beta-blockers given slow V response as this might be an indicator of underlying conduction disease versus secondary to intracranial hemorrhage. EP follow-up as an outpatient for consideration of ablation if deemed an appropriate candidate. Will obtain TSH to rule out hypothyroidism Anticoagulation can be started when cleared by neurosurgery for the same. Thank you for inviting us to participate in the care of your patient. We will continue to follow. Problem List/Past Medical History Ongoing No qualifying data Historical No qualifying data Procedure/Surgical History No qualifying data available. Medications Inpatient Apresoline, 20 mg= 1 mL, IV Push, q4h, PRN Dextrose 50% IV Push, 12.5 gram(s)= 25 mL, IV Push, AsDirected, PRN galantamine, 8 mg= 2 tab(s), Oral, BIDM glimepiride, 4 mg= 2 tab(s), Oral, qDayM HumaLOG 100 units/mL subcutaneous solution, Give 0-15 units/dose, Subcutaneous, achs Keppra, 500 mg= 1 tab(s), Oral, BID labetalol, 10 mg= 2 mL, IV Push, q4hr, PRN Namenda, 10 mg= 1 tab(s), Oral, BID primidone, 50 mg= 1 tab(s), Oral, qHS Protonix, 40 mg= 1 tab(s), Oral, qDayAC Synthroid, 88 mcg= 1 tab(s), Oral, qDayAC Tylenol, 650 mg= 2 tab(s), Oral, q4h, PRN venlafaxine, 75 mg= 1 tab(s), Oral, BIDM Zofran, 4 mg= 2 mL, IV Push, q4h, PRN Home Albuterol (Eqv-Proventil HFA) 90 mcg/inh inhalation aerosol, Not taking atorvastatin 40 mg oral tablet, Not taking doxycycline hyclate 100 mg oral tablet, Not taking gabapentin 300 mg oral capsule, Not taking galantamine 8 mg oral capsule, extended release glimepiride 4 mg oral tablet levothyroxine 88 mcg (0.088 mg) oral tablet memantine 10 mg oral tablet omeprazole 40 mg oral delayed release capsule Paxlovid 300 mg-100 mg Dose Pack oral tablet, 1 packet(s), Oral, BID, Not taking polyethylene glycol 3350 oral powder for reconstitution primidone 50 mg oral tablet venlafaxine 75 mg oral tablet Allergies penicillin Immunizations pneumococcal 13-valent conjugate vaccine: 0.5 unknown unit (06/21/19) pneumococcal 23-valent vaccine(Pneumovax: 0.5 unknown unit (11/06/22) SARS-CoV-2 (COVID-19) mRNA-1273 vaccine: 0.25 unknown unit (07/15/21) SARS-CoV-2 (COVID-19) mRNA-1273 vaccine: 0.5 unknown unit (11/01/20) SARS-CoV-2 (COVID-19) mRNA-1273 vaccine: 0.5 unknown unit (10/04/20) tetanus/diphth/pertuss (Tdap) adult/adol: 0.5 unknown unit (09/28/23) Digitally Signed by YANNICK UMANA MD on 09/29/2023 11:18 PM [id number] Progress note Date of Service 09/30/2023 Chief Complaint Fall, intracranial bleed and atrial flutter Subjective Comfortable. No chest pain or shortness of breath. Objective Vitals and Measurements T: 36.7 C (Oral) TMIN: 36.3 C (Oral) TMAX: 36.8 C (Oral) HR: 79 RR: 18 BP: 157/81 SpO2: 100% Intake and Output 7AM Yesterday to 7AM Today Intake and Output (Last 24 hours) Intake Output Urine Voided 1100.00 Stool Count 2.00 Total Summary Total Intake 0.00 Total Output 1100.00 Fluid Balance -1100.00 Physical Exam General Appearance: Comfortable, not in distress EENT: Moist mucous membranes Neck: JVD not elevated Cardiac: Irregularly irregular. No signs of volume overload Lungs: Clear to auscultation, no crackles or wheezes Abdomen: Soft, nontender, bowel sounds here Musculoskeletal: No active joint inflammation Extremities: Pulses palpable, no edema Neurological: Alert, oriented 3, able to move lower extremities Weight Dosing Weight: 84.8 kg (09/28/23) Dosing Weight: 84.8 kg (09/28/23) Medications Medications (15) Active Scheduled: (10) galantamine 4 mg tablet 8 mg 2 tab(s), Oral, BIDM glimepiride 2 mg Tablet 4 mg 2 tab(s), Oral, qDayM insulin lispro 100 units/mL Soln (3 mL) Give 0-15 units/dose, Subcutaneous, achs levETIRAcetam 500 mg tablet 500 mg 1 tab(s), Oral, BID levothyroxine 88 mcg tablet 88 mcg 1 tab(s), Oral, qDayAC memantine 10 mg tablet 10 mg 1 tab(s), Oral, BID pantoprazole 40 mg EC tablet 40 mg 1 tab(s), Oral, qDayAC polyethylene glycol 3350 - UD packet 17 gram(s) 15 mL, Oral, qDay primidone 50 mg tablet 50 mg 1 tab(s), Oral, qHS venlafaxine 75 mg Tablet 75 mg 1 tab(s), Oral, BIDM Continuous: (0) PRN: (5) acetaminophen 325 mg Tablet 650 mg 2 tab(s), Oral, q4h dextrose 50% Solution Disp syringe 50 mL 12.5 gram(s) 25 mL, IV Push, AsDirected hydralazine 20 mg/mL (1mL) vial 20 mg 1 mL, IV Push, q4h labetalol 5 mg/mL (4 mL) INJ 10 mg 2 mL, IV Push, q4hr ondansetron 2 mg/ 1 mL 2 mL INJ 4 mg 2 mL, IV Push, q4h Lab Results 09/30 08:11 WBC: 7.2 Hgb: 13.3 Hct: 40.0 Platelet: 167 Neutrophil %: 72.1 Glucose Level: 174 H Sodium Level: 137 Potassium Level: 4.5 BUN: 12.0 Creatinine Lvl (s): 0.74 EKG No qualifying data available. Assessment/Plan Impression: 1. Atrial flutter with slow ventricular response 2. Type 2 diabetes 3. Dyslipidemia 4. Mechanical fall with intraparenchymal hemorrhage of the brain Plan: Currently patient not in decompensated heart failure. Ventricular rate is well- controlled. He is not on any AV node blocking agents. Also not on anticoagulation due to fall with intracranial bleed. Patient would benefit from anticoagulation +/- Watchman device in future whenever he is safe to be anticoagulated. Patient will need close follow-up in outpatient cardiology after discharge from the hospital. Cardiology will sign off. Please call us with questions. Digitally Signed by ANIL FLORES MD on 09/30/2023 09:12 PM [id number] Note Date of Service 09/30/2023 Chief Complaint Headache Subjective Patient is an 87-year-old male with past medical history of type 2 diabetes mellitus, chronic back pain, hypothyroidism, dementia, multiple falls who presented to [facility] from [facility] for evaluation after fall. Upon evaluation at ED patient underwent CT head imaging which demonstrated an acute left frontal IPH without midline shift or mass effect. CT cervical spine negative for any acute fracture or subluxation. Patient was transferred to [facility] for further workup and evaluation. Repeat noncontrast CT redemonstrated left frontal IPH with mild adjacent edema, questionable 6 mm hyperdense foci in the anterior left frontal lobe extra-axial space which could possibly represent subdural blood versus artifact per neurosurgery. Patient was admitted to SICU under neurosurgery service. No surgical intervention necessary at this time. Due to the appearance of the hemorrhage being rather rounded shape concern was for some possible lesion. CT abdomen and thorax ordered to evaluate for possible metastatic disease which was negative. Recommend to follow-up with a CAT scan in 2 weeks and MRI outpatient in 6 weeks. Patient was then found to have A-fib and was evaluated by cardiology. Recommending echocardiogram, hold off on beta-blockers given slow ventricular rate. EPfollow-up outpatient. Anticoagulation cannot be started until cleared by neurosurgery. Patient trans ferred out of SICU to the 5 S. unit. Hospitalist assumed care. Therapy recommending inpatient rehabon discharge. Awaiting placement. Patient seen and evaluated today. Complaining of a headache 8 out of 10 posterior Guillaume and nausea this morning. Also reports he has not had a bowel movement. Objective Vitals and Measurements T: 36.5 C (Oral) TMIN: 36.3 C (Oral) TMAX: 36.8 C (Oral) HR: 85 RR: 18 BP: 122/82 SpO2: 99% Intake and Output 7AM Yesterday to 7AM Today Intake and Output (Last 24 hours) Intake Output Urine Voided 1400.00 Stool Count 1.00 Urine Count 1.00 Total Summary Total Intake 0.00 Total Output 1400.00 Fluid Balance -1400.00 Physical Exam Constitutional: Patient is alert and oriented x3. In no acute distress. Eyes: PERRLA, EOM intact. ENT: hearing grossly intact, mucous membranes moist, Respiratory: Breathing nonlabored, lungs clear to auscultation bilaterally. Heart: Regular rate and rhythm. S1 S2 heard. GI: Bowel sounds x4 quadrants. No rebound tenderness or guarding. Neuro: speech clear. AGUILAR equally. memory intact Skin: no rashes or lesions noted. skin warm, dry and intact. Weight Dosing Weight: 84.8 kg (09/28/23) Dosing Weight: 84.8 kg (09/28/23) Medications Medications (15) Active Scheduled: (10) galantamine 4 mg tablet 8 mg 2 tab(s), Oral, BIDM glimepiride 2 mg Tablet 4 mg 2 tab(s), Oral, qDayM insulin lispro 100 units/mL Soln (3 mL) Give 0-15 units/dose, Subcutaneous, achs levETIRAcetam 500 mg tablet 500 mg 1 tab(s), Oral, BID levothyroxine 88 mcg tablet 88 mcg 1 tab(s), Oral, qDayAC memantine 10 mg tablet 10 mg 1 tab(s), Oral, BID pantoprazole 40 mg EC tablet 40 mg 1 tab(s), Oral, qDayAC polyethylene glycol 3350 - UD packet 17 gram(s) 15 mL, Oral, qDay primidone 50 mg tablet 50 mg 1 tab(s), Oral, qHS venlafaxine 75 mg Tablet 75 mg 1 tab(s), Oral, BIDM Continuous: (0) PRN: (5) acetaminophen 325 mg Tablet 650 mg 2 tab(s), Oral, q4h dextrose 50% Solution Disp syringe 50 mL 12.5 gram(s) 25 mL, IV Push, AsDirected hydralazine 20 mg/mL (1mL) vial 20 mg 1 mL, IV Push, q4h labetalol 5 mg/mL (4 mL) INJ 10 mg 2 mL, IV Push, q4hr ondansetron 2 mg/ 1 mL 2 mL INJ 4 mg 2 mL, IV Push, q4h Lab Results 09/30 08:11 WBC: 7.2 Hgb: 13.3 Hct: 40.0 Platelet: 167 Neutrophil %: 72.1 Glucose Level: 174 H Sodium Level: 137 Potassium Level: 4.5 BUN: 12.0 Creatinine Lvl (s): 0.74 09/29 05:16 WBC: 8.4 Hgb: 12.5 L Hct: 37.3 L Platelet: 192 Neutrophil %: 80.1 H Glucose Level: 319 H Sodium Level: 135 L Potassium Level: 4.3 BUN: 15.0 Creatinine Lvl (s): 0.78 Imaging Results and Diagnostics CT Abdomen/Pelvis w/Contrast Result Date: September 29, 2023 Verified By: NATASHA GONZALEZ MD CLINICAL STATEMENT: IMPRESSION: No acute abnormality identified. No definite evidence for abdominalmalignancy. CT Thorax w/ Contrast Result Date: September 29, 2023 Verified By: NATASHA GONZALEZ MD CLINICAL STATEMENT: IMPRESSION: Very prominent motion artifact. No acute finding or definite intrathoracicmalignancy. CT Head or Brain w/o Contrast Result Date: September 29, 2023 Verified By: FRANKLIN VANG MD CLINICAL STATEMENT: IMPRESSION: Unchanged left frontal intraparenchymal hematoma and small left frontalsubdural hematoma. No significant mass effect. No new intracranial hemorrhage. Moderate brain atrophy and chronic microvascular angiopathy. CT Head or Brain w/o Contrast Result Date: September 28, 2023 Verified By: ADAMS ABEBE MD CLINICAL STATEMENT: IMPRESSION: Acute intracerebral hemorrhage in the left frontal lobe measuring 1.4 x 1.5 x1.7 cm with mild adjacent edema. No midline shift or significant mass effect. Question 6 mm hyperdense focus in the inferior left frontal lobe extra- axialspace which may represent focal subdural bleed versus artifact. Soft tissue swelling of the left posterior scalp. Critical results were called by Dr. Shahriar Zaman to Dr. Pascal On 09/28/2023 at21:37. I have personally reviewed the images of this examination and agree with theresident's findings and interpretation. XR Chest 1 View Result Date: September 28, 2023 Verified By: ADAMS ABEBE MD CLINICAL STATEMENT: IMPRESSION: Low lung volumes with bibasilar streaky opacity/atelectasis. I have personally reviewedthe images of this examination and agree with theresident's findings and interpretation. EKG No qualifying data available. Assessment/Plan 1. A-fib 2. Subdural hemorrhage 3. Fall 4. Headache Patient is status post fall presenting to [facility]. Was transferred to [facility] under neurosurgery service for CT head findings. Repeat noncontrast CT redemonstrated left frontal IPH with mildadjacent edema, questionable 6 mm hyperdense foci in the anterior left frontal lobe extra-axial space which could possibly represent subdural blood versus artifact per neurosurgery. No surgical intervention necessary at this time. Due to appearance of the hemorrhage being rather round shape concernwas for a possible lesion. CT abdomen and thorax ordered to evaluate possible metastatic disease which was negative. Neurosurgery recommending CT scan in 2 weeks and MRI outpatient in 6 weeks to further evaluate. Patient complaining of a headache and nausea today. Discussed with Yaritza DUMONT which could be related to postconcussive syndrome, due to neuroexam being stable no further concerns at this time. A-fib management per cardiology. Not on anticoagulation given above. Rate controlled therefore no antiarrhythmics ordered. Echo ordered/pending. Recommending outpatient EP follow-up. PT OT recommending SNF on discharge, oncology social worker involved, pending arrangements. Will add MiraLAX for bowel regimen. Discussed with son at the bedside. Time Spent A total of 35 minutes reviewing patient's diagnostic, labs/tests, seeing and examining the patient and documenting in the medical record, please see assessment for further details. Digitally Signed by ARJUN PATTERSON on 09/30/2023 03:32 PM [id number] Cardiology Consult note Date of Service September 29, 2023 Reason for Consultation Newly diagnosed atrial flutter History of Present Illness Patient is an 87-year-old gentleman for whom cardiology has been consulted for newly diagnosed atrial flutter with slow ventricular response. PMH:-Mentioned under assessment/plan section on the right-hand side Patient has been admitted at [facility] for a witnessed mechanical fall resulting in left frontal intraparenchymal hemorrhage with small left frontal SDH that is being managed nonsurgically. Upon initial presentation, patient was noted to be in atrial flutter with slow ventricular response due to which cardiology has been consulted for further management. Per patient's , patient has had no previous cardiac issues in the past. Patient denies exertional chest pain/SOB/orthopnea/PND/palpitations. EKG-atrial flutter with slow ventricular response, troponins x 4 negative, echocardiogram-awaited CBC and CMP within normal limits. Review of Systems CONSTITUTIONAL: Denies fevers, chills EYES: Denies any visual symptoms. EARS, NOSE, AND THROAT: No symptoms of rhinitis or sore throat. CARDIOVASCULAR: Mentioned above RESPIRATORY: No wheezing or cough GI: No nausea/vomiting, abdominal pain, hematochezia or melena. : No dysuria, urinary frequency MUSCULOSKELETAL: No new onset or worsening myalgias/arthralgias. NEUROLOGIC: Denies new headache, new onset weakness DERMATOLOGIC: Denies new rashes Physical Exam Vitals and Measurements T: 36.7 C (Oral) TMIN: 36.5 C (Oral) TMAX: 37.0 C (Axillary) HR: 50(Monitored) RR: 20 BP: 132/63 BP: 124/69(Supine) SpO2: 95% HT: 165.1 cm WT: 84.8 kg BMI: 31.11 Weight Dosing Weight: 84.8 kg (09/28/23) Dosing Weight: 84.8 kg (09/28/23) GENERAL APPEARANCE: Lying on bed; _ SKIN: Warm EXTREMITIES: No cyanosis/clubbing. [No significant pedal edema] HEENT: PERRL, EOMI. [JVD not elevated] NECK: Supple. Trachea is midline. CHEST: Symmetric. Nontender to palpation. LUNGS: Mildly diminished breath sounds in the bases HEART: [RRR] [S1, S2 +]. [No murmurs, gallops, or rubs]. ABDOMEN: Soft. No organomegaly. NEUROLOGIC: A&O, moving all four extremities. Lab Results 09/29 05:16 WBC: 8.4 Hgb: 12.5 L Hct: 37.3 L Platelet: 192 Neutrophil %: 80.1 H Glucose Level: 319 H Sodium Level: 135 L Potassium Level: 4.3 BUN: 15.0 Creatinine Lvl (s): 0.78 09/28 21:45 WBC: 12.6 H Hgb: 13.8 Hct: 40.5 Platelet: 198 Neutrophil %: 92.3 H Protime: 11.2 PT International Ratio: 1.0 Glucose Level: 236 H Sodium Level: 136 Potassium Level: 4.2 BUN: 13.0 Creatinine Lvl (s): 0.74 Assessment/Plan Primary Cardiac Diagnosis: _New onset Atrial Flutter Cardiac Diagnoses:- Paroxysmal, atrial flutter, in controlled ventricular rate [[id number] score- 4], HAS-BLED:2, _, _ Dyslipidemia Type 2 Diabetes Mellitus Non-cardiac diagnoses:- Traumatic left frontal intraparenchymal hemorrhage with small left frontal SDH Dementia Hold off on beta-blockers given slow V response as this might be an indicator of underlying conduction disease versus secondary to intracranial hemorrhage. EP follow-up as an outpatient for consideration of ablation if deemed an appropriate candidate. Will obtain TSH to rule out hypothyroidism Anticoagulation can be started when cleared by neurosurgery for the same. Thank you for inviting us to participate in the care of your patient. We will continue to follow. Problem List/Past Medical History Ongoing No qualifying data Historical No qualifying data Procedure/Surgical History No qualifying data available. Medications Inpatient Apresoline, 20 mg= 1 mL, IV Push, q4h, PRN Dextrose 50% IV Push, 12.5 gram(s)= 25 mL, IV Push, AsDirected, PRN galantamine, 8 mg= 2 tab(s), Oral, BIDM glimepiride, 4 mg= 2 tab(s), Oral, qDayM HumaLOG 100 units/mL subcutaneous solution, Give 0-15 units/dose, Subcutaneous, achs Keppra, 500 mg= 1 tab(s), Oral, BID labetalol, 10 mg= 2 mL, IV Push, q4hr, PRN Namenda, 10 mg= 1 tab(s), Oral, BID primidone, 50 mg= 1 tab(s), Oral, qHS Protonix, 40 mg= 1 tab(s), Oral, qDayAC Synthroid, 88 mcg= 1 tab(s), Oral, qDayAC Tylenol, 650 mg= 2 tab(s), Oral, q4h, PRN venlafaxine, 75 mg= 1 tab(s), Oral, BIDM Zofran, 4 mg= 2 mL, IV Push, q4h, PRN Home Albuterol (Eqv-Proventil HFA) 90 mcg/inh inhalation aerosol, Not taking atorvastatin 40 mg oral tablet, Not taking doxycycline hyclate 100 mg oral tablet, Not taking gabapentin 300 mg oral capsule, Not taking galantamine 8 mg oral capsule, extended release glimepiride 4 mg oral tablet levothyroxine 88 mcg (0.088 mg) oral tablet memantine 10 mg oral tablet omeprazole 40 mg oral delayed release capsule Paxlovid 300 mg-100 mg Dose Pack oral tablet, 1 packet(s), Oral, BID, Not taking polyethylene glycol 3350 oral powder for reconstitution primidone 50 mg oral tablet venlafaxine 75 mg oral tablet Allergies penicillin Immunizations pneumococcal 13-valent conjugate vaccine: 0.5 unknown unit (06/21/19) pneumococcal 23-valent vaccine(Pneumovax: 0.5 unknown unit (11/06/22) SARS-CoV-2 (COVID-19) mRNA-1273 vaccine: 0.25 unknown unit (07/15/21) SARS-CoV-2 (COVID-19) mRNA-1273 vaccine: 0.5 unknown unit (11/01/20) SARS-CoV-2 (COVID-19) mRNA-1273 vaccine: 0.5 unknown unit (10/04/20) tetanus/diphth/pertuss (Tdap) adult/adol: 0.5 unknown unit (09/28/23) Digitally Signed by YANNICK UMANA MD on 09/29/2023 11:18 PM [id number] Evaluation + Plan noteExtracted from: Title:History and Physical Author:XAVIER WALKER Abena LOZENGE DOUGH MIXER-CHILD'S NURSE Date:09/29/23 Acute left frontal IPH, left frontal SDH s/p fall CT head completed yesterday evening redemonstrated left frontal IPH measuring 1.4 x 1.5 x 1.7 cm with mild adjacent edema. Also did note a questionable 6 mm hyperdense focus in the inferior left frontal lobe extra-axial space which could possibly represent subdural blood versus artifact. CT head completed this morning redemonstrates left frontal IPH, as well as small left frontal subdural hematoma; unchanged. No significant mass effect or shift. No new ICH. Neurologically, patient is intact without focal deficits on exam. Does continue to complain of dizziness/lightheadedness at times, as well as mild headache. Dr. Vu explained to the patient and his at the bedside that there is no neurosurgical intervention necessary at this time. The above described IPH does appear more round than we would typically see any traumatic injury, and because of this, will need to follow the patient outpatient in clinic in order to ensure that there is is no underlying lesion. Patient and his state understanding. Will plan to repeat head CT in 2 weeks as well as an MRI brain with and without contrast in 6 weeks for further evaluation once acute blood has resolved. Continue neuro monitoring. Notify neurosurgery with any changes in exam. If patient passes bedside swallow evaluation, may advance diet as tolerated. Will place consultation to PT/OT services as patient has experienced multiple falls at home. describes that he is off balance and does shuffle his feet. Continue Keppra 500 mg twice daily for seizure prophylaxis. No documented/witnessed seizure activity overnight. Maintain SBP less than 140 mmHg. Patient did require nicardipine for a short period of time, however has been off since around 1 AM. Patient's denies any history of hypertension. Patient and deny any anticoagulant/antiplatelet use. He should remain off of these medications or NSAIDs until further cleared by neurosurgery. Overnight, patient was noted to be in atrial fibrillation. He does not have a history of this. Echocardiogram and cardiology consult placed per surgical forceps fabricator team. Order placed for CT chest, abdomen/pelvis per Dr. Vu in order to evaluate for any kind of underlying lesions. Legal Process Specialist team following for medical management while patient remains in ICU. Appreciate their help in the care of this patient. If cleared by surgical forceps fabricator team, patient may transfer out of ICU to stepdown unit today. Patient's updated at the bedside regarding neurosurgical plan. Please see Dr. Vu's addendum for further details regarding neurosurgical assessment/plan of care. Addendum by ABRAHAM VU MD on September 29, 2023 11:34:13 EST This is a split shared note between myself and the nurse practitioner. Patient is awake and alert and oriented x 3, moving all extremities well. Denying headaches nausea or vomiting or seizure activity. No sensory deficits. Appearance of the hemorrhage is concerning, it is rather rounded in shape, does not follow the normal appearance of what I would consider traumatic hemorrhage contusion or traumatic subarachnoid hemorrhage. Repeat CT scan is stable. At this point time, would recommend body CT to make sure they does not have any metastatic disease which may spread to the brain that then hemorrhage. Additionally we will get a follow-up CT scan in 2 weeks time, likely MRI of the brain with and without contrast in 6 weeks. Future Appointments Appointment Date:10/15/2023 09:15:00 AM Scheduled Provider: Location:XRAY Appointment Type:CT Head or Brain w/o Contrast Appointment Date:10/15/2023 09:15:00 AM Scheduled Provider:ABRAHAM VU MD Location:NEUROS Appointment Type:NS OV Appointment Date:11/11/2023 04:30:00 PM Scheduled Provider: Location:XRAY Appointment Type:MRI Brain w/ + w/o Contrast Appointment Date:11/17/2023 10:15:00 AM Scheduled Provider:ABRAHAM VU MD Location:NEUROS Appointment Type:NS OV Future Scheduled Tests Radiology* CT Head or Brain w/o Contrast 10/15/23 * MRI Brain w/ + w/o Contrast 11/11/23 [facility] 01-15-2024 History and physical note Date of Service 09/29/2023 This is a split/shared history and physical with Dr. Vu Chief Complaint IPH s/p fall History of Present Illness This is an 87-year-old male with a PMH significant for T2DM, chronic back pain, hypothyroidism, dementia, and multiple falls who presented to [facility] as a transfer from for evaluation after fall. 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 Provides that she was watching from a window in their house. She does note LOC + which the patient confirms, a total of 2 to 3 minutes. He is amnesic to the event itself, notes his first memory was in the ambulance. Denies any use of an tiplatelet/anticoagulant medications. Upon evaluation in ED, patient underwent CT head imaging which demonstrated an acute left frontal IPH without midline shift or mass effect. CT cervical spine negative for any acute fracture or subluxation. Bilateral hip x-ray negative for any acute bony abnormality. Because of above findings, patient was transferred to [facility] for further evaluation and management. Repeat noncontrasted head CT completed yesterday evening redemonstrated left frontal IPH measuring 1.4 x 1.5 x 1.7 cm with mild adjacent edema. Also did note a questionable 6 mm hyperdense focus in the inferior left frontal lobe extra- axial space which could possibly represent subdural blood versusartifact. Patient admitted to SICU under Dr. Vu service for further evaluation management. This morning, patient is seen resting in bed. His is at the bedside. He is alert and oriented x 4. He is complaining of only a mild headache. Notes that he did have an episode of nausea and vomiting overnight that typically occurs when he becomes lightheaded after movement. Has not experiencedany of this this morning. Denies any acute vision changes, paresthesias, weakness. Patient does endorse intermittent and now worse dizziness/lightheadedness. Denies any history of cancers. Denies anyunintentional weight loss. Patient's does note that his appetite has been less than normal. Patient's does note that he has had multiple falls recently and appears to be off balance or shuffling his feet prior to this. Does note that he does have chronic back pain and has had imaging on his back in the past and was told he has degenerative disc disease, though no surgery was offered. She notes that his overall mentation and gait have worsened over the last 6 months. Notes that he was diagnosed with dementia via a online media director. Has not seen neurology. Provides that he was started on brain meds without improvement. On exam, his speech is clear and fluent. He is able to follow simple commands accurately and without delay. Facial features are symmetrical, tongue protrudes midline. PERRLA, EOMI. He has strong bilateral upper extremity motor strength, sensation is intact throughout. No pronator drift. [id number] testing intact without dysmetria. Left/right discretion intact. He has strong dorsiflexion and plantarflexion bilaterally, he is able to lift bilateral lower extremities off of the bed without difficulty at the hip and bend at the knee. Sensation is intact to light touch throughout his lower extremities. Review of Systems Constitutional: Denies weight loss, fever, chills, and night sweats. Skin: Denies lesions, rashes, and pruritus. Neurological: See HPI HEENT: Denies headache, sudden or acute changes in visual acuity, diplopia, and blurred vision. Denies earaches, changes in hearing, and otorrhea. Denies rhinorrhea, sore throat, and difficulty swallowing. Cardiovascular: Denies chest pain, pressure, and palpitations. Denies history of irregular heart rhythm. Respiratory: Denies shortness of breath, difficulty breathing, cough and hemoptysis. Gastrointestinal: Denies abdominal pain. Genitourinary: Denies dysuria, incontinence, and hematuria. Musculoskeletal: Denies acute cervical, thoracic, or lumbar pain. Denies specific complaints of joint pain, erythema, and edema. Physical Exam Vitals and Measurements T: 37.0 C (Axillary) TMIN: 36.5 C (Oral) TMAX: 37.0 C (Axillary) HR: 57(Monitored) RR: 18 BP: 130/70 SpO2: 96% HT: 165.1 cm WT: 84.8 kg BMI: 31.11 Weight Dosing Weight: 84.8 kg (09/28/23) Dosing Weight: 84.8 kg (09/28/23) General Appearance: 87-year-old male. Awake, alert and oriented. Resting in bed, appears comfortable and in no acute distress. Appears stated age. Is hard of hearing. Skin: Skin is pink, warm, and dry. No rashes or lesions. Neurological: See HPI. HEENT: Head is normocephalic. Does have ecchymotic area and abrasion to the scalp. No apparent active bleeding. PERRLA, EOMI. Cardiovascular: Irregularly irregular heart rate and rhythm. S1, S2 present. No peripheral edema noted. Radial and pedal pulses are 2+ and symmetric bilaterally. Respiratory: Respirations even and unlabored. Lungs are clear bilaterally. No signs of respiratory distress. Gastrointestinal: Abdomen is soft and symmetric. No abdominal tenderness or distention with palpation. Bowel sounds normoactive in all four quadrants. Genitourinary: Voiding without difficulty. Musculoskeletal: Moves all extremities. No obvious joint edema or erythema noted. Lab Results 09/29 05:16 WBC: 8.4 Hgb: 12.5 L Hct: 37.3 L Platelet: 192 Neutrophil %: 80.1 H Glucose Level: 319 H Sodium Level: 135 L Potassium Level: 4.3 BUN: 15.0 Creatinine Lvl (s): 0.78 09/28 21:45 WBC: 12.6 H Hgb: 13.8 Hct: 40.5 Platelet: 198 Neutrophil %: 92.3 H Protime: 11.2 PT International Ratio: 1.0 Glucose Level: 236 H Sodium Level: 136 Potassium Level: 4.2 BUN: 13.0 Creatinine Lvl (s): 0.74 Imaging Results and [address] CT Head or Brain w/o Contrast Result Date: September 29, 2023 Verified By: FRANKLIN VANG MD CLINICAL STATEMENT: IMPRESSION: Unchanged left frontal intraparenchymal hematoma and small left frontalsubdural hematoma. No significant mass effect. No new intracranial hemorrhage. Moderate brain atrophy and chronic microvascular angiopathy. CT Head or Brain w/o Contrast Result Date: September 28, 2023 Verified By: ADAMS ABEBE MD CLINICAL STATEMENT: IMPRESSION: Acute intracerebral hemorrhage in the left frontal lobe measuring 1.4 x 1.5 x1.7 cm with mild adjacent edema. No midline shift or significant mass effect. Question 6 mm hyperdense focus in the inferior left frontal lobe extra- axialspace which may represent focal subdural bleed versus artifact. Soft tissue swelling of the left posterior scalp. Critical results were called by Dr. Shahriar Zaman to Dr. Pascal On 09/28/2023 at21:37. I have personally reviewed the images of this examination and agree with theresident's findings and interpretation. XR Chest 1 View Result Date: September 28, 2023 Verified By: ADAMS ABEBE MD CLINICAL STATEMENT: IMPRESSION: Low lung volumes with bibasilar streaky opacity/atelectasis. I have personally reviewedthe images of this examination and agree with theresident's findings and interpretation. Assessment/Plan Acute left frontal IPH, left frontal SDH s/p fall CT head completed yesterday evening redemonstrated left frontal IPH measuring 1.4 x 1.5 x 1.7 cm with mild adjacent edema. Also did note a questionable 6 mm hyperdense focus in the inferior left frontal lobe extra-axial space which could possibly represent subdural blood versus artifact. CT head completed this morning redemonstrates left frontal IPH, as well as small left frontal subdural hematoma; unchanged. No significant mass effect or shift. No new ICH. Neurologically, patient is intact without focal deficits on exam. Does continue to complain of dizziness/lightheadedness at times, as well as mild headache. Dr. Vu explained to the patient and his at the bedside that there is no neurosurgical intervention necessary at this time. The above described IPH does appear more round than we would typically see any traumatic injury, and because of this, will need to follow the patient outpatient in clinic in order to ensure that there is is no underlying lesion. Patient and his state understanding. Will plan to repeat head CT in 2 weeks as well as an MRI brain with and without contrast in 6 weeks for further evaluation once acute blood has resolved. Continue neuro monitoring. Notify neurosurgery with any changes in exam. If patient passes bedside swallow evaluation, may advance diet as tolerated. Will place consultation to PT/OT services as patient has experienced multiple falls at home. describes that he is off balance and does shuffle his feet. Continue Keppra 500 mg twice daily for seizure prophylaxis. No documented/witnessed seizure activity overnight. Maintain SBP less than 140 mmHg. Patient did require nicardipine for a short period of time, however has been off since around 1 AM. Patient's denies any history of hypertension. Patient and deny any anticoagulant/antiplatelet use. He should remain off of these medicationsor NSAIDs until further cleared by neurosurgery. Overnight, patient was noted to be in atrial fibrillation. He does not have a history of this. Echocardiogram and cardiology consult placed per surgical forceps fabricator team. Order placed for CT chest, abdomen/pelvis per Dr. Vu in order to evaluate for any kind of underlying lesions. Legal Process Specialist team following for medical management while patient remains in ICU. Appreciate their help in the care of this patient. If cleared by surgical forceps fabricator team, patient may transfer out of ICU to stepdown unit today. Patient's updated at the bedside regarding neurosurgical plan. Please see Dr. Vu's addendum for further details regarding neurosurgical assessment/plan of care. Problem List/Past Medical History See HPI. Procedure/Surgical History No qualifying data available. Medications Home Medications (13) Active Albuterol (Eqv-Proventil HFA) 90 mcg/inh inhalation aerosol atorvastatin 40 mg oral tablet doxycycline hyclate 100 mg oral tablet gabapentin 300 mg oral capsule galantamine 8 mg oral capsule, extended release glimepiride 4 mg oral tablet levothyroxine 88 mcg (0.088 mg) oral tablet memantine 10 mg oral tablet omeprazole 40 mg oral delayed release capsule Paxlovid 300 mg-100 mg Dose Pack oral tablet 1 packet(s), Oral, BID polyethylene glycol 3350 oral powder for reconstitution primidone 50 mg oral tablet venlafaxine 75 mg oral tablet Allergies penicillin Social History Patient denies any tobacco use. Notes occasional alcohol use. Denies any illicit drug use. Lives at home with his . Notes that he has 5 adult children. Family History Does have history of cancer throughout the family but unable to provide specific details. Notes that one of his adult children has colon cancer. Immunizations pneumococcal 13-valent conjugate vaccine: 0.5 unknown unit (06/21/19) pneumococcal 23-valent vaccine(Pneumovax: 0.5 unknown unit (11/06/22) SARS-CoV-2 (COVID-19) mRNA-1273 vaccine: 0.25 unknown unit (07/15/21) SARS-CoV-2 (COVID-19) mRNA-1273 vaccine: 0.5 unknown unit (11/01/20) SARS-CoV-2 (COVID-19) mRNA-1273 vaccine: 0.5 unknown unit (10/04/20) tetanus/diphth/pertuss (Tdap) adult/adol: 0.5 unknown unit (09/28/23) Code Status Code Status - Ordered -- 09/28/23 22:06:00 EST, Full Code, Constant Order Digitally Signed by LOUIS WALKER on 09/29/2023 10:55 AM [id number] Note ORIGINAL EXAMINATION: CT OF THE CHEST WITH CONTRAST 09/29/2023 11:37 am TECHNIQUE: CT of the chest was performed with the administration of intravenous contrast. Multiplanar reformatted images are provided for review. Automated exposure control, iterative reconstruction, and/or weight based adjustment of the mA/kV was utilized to reduce the radiation dose to as low as reasonably achievable. COMPARISON: None. HISTORY: ORDERING SYSTEM PROVIDED HISTORY: Reason for Exam: evaluate for lesion, left IPH, concern for underlying lesion FINDINGS: The exam is degraded by prominent patient motion artifact, and this significantly hinders interpretation. Degenerative disc disease is noted in the spine. No acute thoracic compression is visible. Allowing for prominent motion, there is very minimal coarse atelectasis at the lower lobes. No other focal infiltrates are visible, and there is no pleural fluid seen. No mediastinal adenopathy is visible. There is some calcified pleural thickening at the right lung base. No other abnormality seen. IMPRESSION: Very prominent motion artifact. No acute finding or definite intrathoracic malignancy. Interpreted by: Natasha Gonzalez MD Preliminary Report By: Natasha Gonzalez MD Electronically signed By Natasha Gonzalez MD Dictated Date: 09/29/2023 11:55:39 AM Prelim Date: 09/29/2023 11:57:48 AM Sign Date: 09/29/2023 11:57:48 AM Ordering Provider[id number] Note ORIGINAL EXAMINATION: CT OF THE ABDOMEN AND PELVIS WITH CONTRAST 09/29/2023 11:38 am TECHNIQUE: CT of the abdomen and pelvis was performed with the administration of intravenous contrast. Multiplanar reformatted images are provided for review. Automated exposure control, iterative reconstruction, and/or weight based adjustment of the mA/kV was utilized to reduce the radiation dose to as low as reasonably achievable. COMPARISON: None. HISTORY: ORDERING SYSTEM PROVIDED HISTORY: Reason for Exam: evaluate for lesion, left IPH, concern for underlying lesion FINDINGS: Degenerative disc disease is prominent at the lower lumbar spine especially at L4-5 and L5-S1 and at the facet joints. No acute lumbar compression is visible. No other osseous finding seen. CT chest is also performed and is reported separately. Liver, spleen and left adrenal gland are normal. There is a 13 mm right adrenal nodule, most compatible with a small benign adenoma. The pancreas is unremarkable. Right midpole renal cyst is evident. No other kidney finding. No adenopathy, free air or free fluid is visible. Urinary bladder is grossly normal. No GI tract abnormality is identified. No additional contributory abnormality. IMPRESSION: No acute abnormality identified. No definite evidence for abdominal malignancy. Interpreted by: Natasha Gonzalez MD Preliminary Report By: Natasha Gonzalez MD Electronically signed By Natasha Gonzalez MD Dictated Date: 09/29/2023 11:41:20 AM Prelim Date: 09/29/2023 11:55:12 AM Sign Date: 09/29/2023 11:55:12 AM Ordering Provider: [id number] History and physical note Date of Service 09/29/2023 This is a split/shared history and physical with Dr. Vu Chief Complaint IPH s/p fall History of Present Illness This is an 87-year-old male with a PMH significant for T2DM, chronic back pain, hypothyroidism, dementia, and multiple falls who presented to [facility] as a transfer from for evaluation after fall. 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 Provides that she was watching from a window in their house. She does note LOC + which the patient confirms, a total of 2 to 3 minutes. He is amnesic to the event itself, notes his first memory was in the ambulance. Denies any use of ant iplatelet/anticoagulant medications. Upon evaluation in ED, patient underwent CT head imaging which demonstrated an acute left frontal IPH without midline shift or mass effect. CT cervical spine negative for any acute fracture or subluxation. Bilateral hip x-ray negative for any acute bony abnormality. Because of above findings, patient was transferred to [facility] for further evaluation and management. Repeat noncontrasted head CT completed yesterday evening redemonstrated left frontal IPH measuring 1.4 x 1.5 x 1.7 cm with mild adjacent edema. Also did note a questionable 6 mm hyperdense focus in the inferior left frontal lobe extra- axial space which could possibly represent subdural blood versusartifact. Patient admitted to SICU under Dr. Vu service for further evaluation management. This morning, patient is seen resting in bed. His is at the bedside. He is alert and oriented x 4. He is complaining of only a mild headache. Notes that he did have an episode of nausea and vomiting overnight that typically occurs when he becomes lightheaded after movement. Has not experiencedany of this this morning. Denies any acute vision changes, paresthesias, weakness. Patient does endorse intermittent and now worse dizziness/lightheadedness. Denies any history of cancers. Denies anyunintentional weight loss. Patient's does note that his appetite has been less than normal. Patient's does note that he has had multiple falls recently and appears to be off balance or shuffling his feet prior to this. Does note that he does have chronic back pain and has had imaging on his back in the past and was told he has degenerative disc disease, though no surgery was offered. She notes that his overall mentation and gait have worsened over the last 6 months. Notes that he was diagnosed with dementia via a online media director. Has not seen neurology. Provides that he was started on brain meds without improvement. On exam, his speech is clear and fluent. He is able to follow simple commands accurately and without delay. Facial features are symmetrical, tongue protrudes midline. PERRLA, EOMI. He has strong bilateral upper extremity motor strength, sensation is intact throughout. No pronator drift. [id number] testing intact without dysmetria. Left/right discretion intact. He has strong dorsiflexion and plantarflexion bilaterally, he is able to lift bilateral lower extremities off of the bed without difficulty at the hip and bend at the knee. Sensation is intact to light touch throughout his lower extremities. Review of Systems Constitutional: Denies weight loss, fever, chills, and night sweats. Skin: Denies lesions, rashes, and pruritus. Neurological: See HPI HEENT: Denies headache, sudden or acute changes in visual acuity, diplopia, and blurred vision. Denies earaches, changes in hearing, and otorrhea. Denies rhinorrhea, sore throat, and difficulty swallowing. Cardiovascular: Denies chest pain, pressure, and palpitations. Denies history of irregular heart rhythm. Respiratory: Denies shortness of breath, difficulty breathing, cough and hemoptysis. Gastrointestinal: Denies abdominal pain. Genitourinary: Denies dysuria, incontinence, and hematuria. Musculoskeletal: Denies acute cervical, thoracic, or lumbar pain. Denies specific complaints of joint pain, erythema, and edema. Physical Exam Vitals and Measurements T: 37.0 C (Axillary) TMIN: 36.5 C (Oral) TMAX: 37.0 C (Axillary) HR: 57(Monitored) RR: 18 BP: 130/70 SpO2: 96% HT: 165.1 cm WT: 84.8 kg BMI: 31.11 Weight Dosing Weight: 84.8 kg (09/28/23) Dosing Weight: 84.8 kg (09/28/23) General Appearance: 87-year-old male. Awake, alert and oriented. Resting in bed, appears comfortable and in no acute distress. Appears stated age. Is hard of hearing. Skin: Skin is pink, warm, and dry. No rashes or lesions. Neurological: See HPI. HEENT: Head is normocephalic. Does have ecchymotic area and abrasion to the scalp. No apparent active bleeding. PERRLA, EOMI. Cardiovascular: Irregularly irregular heart rate and rhythm. S1, S2 present. No peripheral edema noted. Radial and pedal pulses are 2+ and symmetric bilaterally. Respiratory: Respirations even and unlabored. Lungs are clear bilaterally. No signs of respiratory distress. Gastrointestinal: Abdomen is soft and symmetric. No abdominal tenderness or distention with palpation. Bowel sounds normoactive in all four quadrants. Genitourinary: Voiding without difficulty. Musculoskeletal: Moves all extremities. No obvious joint edema or erythema noted. Lab Results 09/29 05:16 WBC: 8.4 Hgb: 12.5 L Hct: 37.3 L Platelet: 192 Neutrophil %: 80.1 H Glucose Level: 319 H Sodium Level: 135 L Potassium Level: 4.3 BUN: 15.0 Creatinine Lvl (s): 0.78 09/28 21:45 WBC: 12.6 H Hgb: 13.8 Hct: 40.5 Platelet: 198 Neutrophil %: 92.3 H Protime: 11.2 PT International Ratio: 1.0 Glucose Level: 236 H Sodium Level: 136 Potassium Level: 4.2 BUN: 13.0 Creatinine Lvl (s): 0.[address] Imaging Results [address] Head or Brain w/o Contrast Result Date: September 29, 2023 Verified By: TAJ WLESH, FRANKLIN Langley CLINICAL STATEMENT: IMPRESSION: Unchanged left frontal intraparenchymal hematoma and small left frontalsubdural hematoma. No significant mass effect. No new intracranial hemorrhage. Moderate brain atrophy and chronic microvascular angiopathy. CT Head or Brain w/o Contrast Result Date: September 28, 2023 Verified By: ADAMS ABEBE MD CLINICAL STATEMENT: IMPRESSION: Acute intracerebral hemorrhage in the left frontal lobe measuring 1.4 x 1.5 x1.7 cm with mild adjacent edema. No midline shift or significant mass effect. Question 6 mm hyperdense focus in the inferior left frontal lobe extra- axialspace which may represent focal subdural bleed versus artifact. Soft tissue swelling of the left posterior scalp. Critical results were called by Dr. Shahriar Zaman to Dr. Pascal On 09/28/2023 at21:37. I have personally reviewed the images of this examination and agree with theresident's findings and interpretation. XR Chest 1 View Result Date: September 28, 2023 Verified By: ADAMS ABEBE MD CLINICAL STATEMENT: IMPRESSION: Low lung volumes with bibasilar streaky opacity/atelectasis. I have personally reviewedthe images of this examination and agree with theresident's findings and interpretation. Assessment/Plan Acute left frontal IPH, left frontal SDH s/p fall CT head completed yesterday evening redemonstrated left frontal IPH measuring 1.4 x 1.5 x 1.7 cm with mild adjacent edema. Also did note a questionable 6 mm hyperdense focus in the inferior left frontal lobe extra-axial space which could possibly represent subdural blood versus artifact. CT head completed this morning redemonstrates left frontal IPH, as well as small left frontal subdural hematoma; unchanged. No significant mass effect or shift. No new ICH. Neurologically, patient is intact without focal deficits on exam. Does continue to complain of dizziness/lightheadedness at times, as well as mild headache. Dr. Vu explained to the patient and his at the bedside that there is no neurosurgical intervention necessary at this time. The above described IPH does appear more round than we would typically see any traumatic injury, and because of this, will need to follow the patient outpatient in clinic in order to ensure that there is is no underlying lesion. Patient and his state understanding. Will plan to repeat head CT in 2 weeks as well as an MRI brain with and without contrast in 6 weeks for further evaluation once acute blood has resolved. Continue neuro monitoring. Notify neurosurgery with any changes in exam. If patient passes bedside swallow evaluation, may advance diet as tolerated. Will place consultation to PT/OT services as patient has experienced multiple falls at home. describes that he is off balance and does shuffle his feet. Continue Keppra 500 mg twice daily for seizure prophylaxis. No documented/witnessed seizure activity overnight. Maintain SBP less than 140 mmHg. Patient did require nicardipine for a short period of time, however has been off since around 1 AM. Patient's denies any history of hypertension. Patient and deny any anticoagulant/antiplatelet use. He should remain off of these medicationsor NSAIDs until further cleared by neurosurgery. Overnight, patient was noted to be in atrial fibrillation. He does not have a history of this. Echocardiogram and cardiology consult placed per surgical forceps fabricator team. Order placed for CT chest, abdomen/pelvis per Dr. Vu in order to evaluate for any kind of underlying lesions. Legal Process Specialist team following for medical management while patient remains in ICU. Appreciate their help in the care of this patient. If cleared by surgical forceps fabricator team, patient may transfer out of ICU to stepdown unit today. Patient's updated at the bedside regarding neurosurgical plan. Please see Dr. Vu's addendum for further details regarding neurosurgical assessment/plan of care. Problem List/Past Medical History See HPI. Procedure/Surgical History No qualifying data available. Medications Home Medications (13) Active Albuterol (Eqv-Proventil HFA) 90 mcg/inh inhalation aerosol atorvastatin 40 mg oral tablet doxycycline hyclate 100 mg oral tablet gabapentin 300 mg oral capsule galantamine 8 mg oral capsule, extended release glimepiride 4 mg oral tablet levothyroxine 88 mcg (0.088 mg) oral tablet memantine 10 mg oral tablet omeprazole 40 mg oral delayed release capsule Paxlovid 300 mg-100 mg Dose Pack oral tablet 1 packet(s), Oral, BID polyethylene glycol 3350 oral powder for reconstitution primidone 50 mg oral tablet venlafaxine 75 mg oral tablet Allergies penicillin Social History Patient denies any tobacco use. Notes occasional alcohol use. Denies any illicit drug use. Lives at home with his . Notes that he has 5 adult children. Family History Does have history of cancer throughout the family but unable to provide specific details. Notes that one of his adult children has colon cancer. Immunizations pneumococcal 13-valent conjugate vaccine: 0.5 unknown unit (06/21/19) pneumococcal 23-valent vaccine(Pneumovax: 0.5 unknown unit (11/06/22) SARS-CoV-2 (COVID-19) mRNA-1273 vaccine: 0.25 unknown unit (07/15/21) SARS-CoV-2 (COVID-19) mRNA-1273 vaccine: 0.5 unknown unit (11/01/20) SARS-CoV-2 (COVID-19) mRNA-1273 vaccine: 0.5 unknown unit (10/04/20) tetanus/diphth/pertuss (Tdap) adult/adol: 0.5 unknown unit (09/28/23) Code Status Code Status - Ordered -- 09/28/23 22:06:00 EST, Full Code, Constant Order Digitally Signed by LOUIS WALKER on 09/29/2023 10:55 AM [id number] Critical care medicine Consult note Date of Service 09/29/2023 Reason for Consultation Critical care management Referring Physician Dr. Abraham Vu History of Present Illness This is an 87-year-old male with past medical history of diabetes, hypothyroidism, dementia suspected to be Alzheimer's, tremors, frequent falls over the past 3 months. On the day of admission, the patients 6 witnessed him fall backwards and hit his head on the driveway. The patient had a mechanical fall with loss of consciousness that lasted 2 to 3 minutes. The patient went to the emergency department with a CT scan showing an acute intracranial hemorrhage in the left frontal lobe 1.4 x 1.5 x 1.7cm with mild adjacent edema. Patient was found to be in a flutter. He was initially on Cardene and is now off. Repeat head CT was stable. Physical Exam Vitals and Measurements T: 37.0 C (Axillary) TMIN: 36.5 C (Oral) TMAX: 37.0 C (Axillary) HR: 57(Monitored) RR: 18 BP: 130/70 SpO2: 96% HT: 165.1 cm WT: 84.8 kg BMI: 31.11 Weight Dosing Weight: 84.8 kg (09/28/23) Dosing Weight: 84.8 kg (09/28/23) - GENERAL: No acute distress. - HEENT: EOMI. moist mucous membranes. - LUNGS: Clear to auscultation bilaterally. No accessory muscle use. - CARDIOVASCULAR: Regular rate and rhythm. - ABDOMEN: Soft, non-tender and non-distended. - EXTREMITIES: No edema. - SKIN: No rashes or lesions. Warm. - NEUROLOGIC:, Interactive, moving all extremities. No rigidity. No significant tremor at rest or with holding objects in upper extremities. Lab Results 09/29 05:16 WBC: 8.4 Hgb: 12.5 L Hct: 37.3 L Platelet: 192 Neutrophil %: 80.1 H Glucose Level: 319 H Sodium Level: 135 L Potassium Level: 4.3 BUN: 15.0 Creatinine Lvl (s): 0.78 09/28 21:45 WBC: 12.6 H Hgb: 13.8 Hct: 40.5 Platelet: 198 Neutrophil %: 92.3 H Protime: 11.2 PT International Ratio: 1.0 Glucose Level: 236 H Sodium Level: 136 Potassium Level: 4.2 BUN: 13.0 Creatinine Lvl (s): 0.74 Assessment/Plan Fall Assessment: Acute intracranial hemorrhage Mechanical fall with loss of consciousness Comorbidities include diabetes, hypothyroidism, Alzheimer's, tremor, history of frequent falls overthe past 3 months Patient is on Keppra 500 mg IV twice daily Will resume patient's home medications including venlafaxine and primidone. Resume Synthroid. Check TSH in the a.m. Patient is currently on maintenance IV fluids and if tolerating diet can be discontinued SCDs Protonix 40 mg daily. Continue as patient takes a PPI daily Patient stable for transfer out of the SICU without pulmonary medicine to follow Problem List/Past Medical History Ongoing No qualifying data Historical No qualifying data Procedure/Surgical History No qualifying data available. Medications Inpatient Apresoline, 20 mg= 1 mL, IV Push, q4h, PRN Dextrose 50% IV Push, 12.5 gram(s)= 25 mL, IV Push, AsDirected, PRN galantamine, 8 mg= 2 tab(s), Oral, BIDM glimepiride, 4 mg= 2 tab(s), Oral, qDayM HumaLOG 100 units/mL subcutaneous solution, Give 0-15 units/dose, Subcutaneous, q6h Keppra, 500 mg= 100 mL, IV Piggyback, BID labetalol, 10 mg= 2 mL, IV Push, q4hr, PRN Namenda, 10 mg= 1 tab(s), Oral, BID niCARdipine for IV 20 mg [5 mg/hr] + NS PMX titrate 200 mL NS 1000 mL, 1000 mL, Intravenous Ofirmev IVPB, 1000 mg= 100 mL, IV Piggyback, q6h, PRN primidone, 50 mg= 1 tab(s), Oral, qHS Protonix, 40 mg= 1 tab(s), Oral, qDayAC Synthroid, 88 mcg= 1 tab(s), Oral, qDayAC venlafaxine, 75 mg= 1 tab(s), Oral, BIDM Zofran, 4 mg= 2 mL, IV Push, q4h, PRN Home Albuterol (Eqv-Proventil HFA) 90 mcg/inh inhalation aerosol, Not taking atorvastatin 40 mg oral tablet, Not taking doxycycline hyclate 100 mg oral tablet, Not taking gabapentin 300 mg oral capsule, Not taking galantamine 8 mg oral capsule, extended release glimepiride 4 mg oral tablet levothyroxine 88 mcg (0.088 mg) oral tablet memantine 10 mg oral tablet omeprazole 40 mg oral delayed release capsule Paxlovid 300 mg-100 mg Dose Pack oral tablet, 1 packet(s), Oral, BID, Not taking polyethylene glycol 3350 oral powder for reconstitution primidone 50 mg oral tablet venlafaxine 75 mg oral tablet Allergies penicillin Immunizations pneumococcal 13-valent conjugate vaccine: 0.5 unknown unit (06/21/19) pneumococcal 23-valent vaccine(Pneumovax: 0.5 unknown unit (11/06/22) SARS-CoV-2 (COVID-19) mRNA-1273 vaccine: 0.25 unknown unit (07/15/21) SARS-CoV-2 (COVID-19) mRNA-1273 vaccine: 0.5 unknown unit (11/01/20) SARS-CoV-2 (COVID-19) mRNA-1273 vaccine: 0.5 unknown unit (10/04/20) tetanus/diphth/pertuss (Tdap) adult/adol: 0.5 unknown unit (09/28/23) Digitally Signed by DOMINIC RAMOS MD on 09/29/2023 10:54 AM [id number] Note ORIGINAL EXAMINATION: CT OF THE HEAD WITHOUT CONTRAST 09/29/2023 5:50 am TECHNIQUE: CT of the head was performed without the administration of intravenous contrast. Automated exposure control, iterative reconstruction, and/or weight based adjustment of the mA/kV was utilized to reduce the radiation dose to as low as reasonably achievable. COMPARISON: CT head on 09/28/2023 HISTORY: ORDERING SYSTEM PROVIDED HISTORY: Reason for Exam: SDH FINDINGS: BRAIN/VENTRICLES: Acute intraparenchymal hematoma anteriorly in the left frontal lobe in a parasagittal location is 1.3 cm in diameter and unchanged compared with scan from the prior day. In addition there is a 6 mm anterior left frontal subdural hyperdensity seen on series 4, image 45 consistent with small acute subdural hematoma that is unchanged from the prior day. No new intracranial hemorrhage is detected compared with prior exam. The hemorrhage causes no significant mass effect. Moderate brain atrophy and chronic microvascular angiopathy. ORBITS: The visualized portion of the orbits demonstrate no acute abnormality. SINUSES: The visualized paranasal sinuses and mastoid air cells demonstrate no acute abnormality. SOFT TISSUES/SKULL: No acute abnormality of the visualized skull or soft tissues. IMPRESSION: Unchanged left frontal intraparenchymal hematoma and small left frontal subdural hematoma. No significant mass effect. No new intracranial hemorrhage. Moderate brain atrophy and chronic microvascular angiopathy. Interpreted by: Franklin Vang MD Preliminary Report By: Franklin Vang MD Electronically signed By Frankiln Vang MD Dictated Date: 09/29/2023 5:55:31 AM Prelim Date: 09/29/2023 6:00:17 AM Sign Date: 09/29/2023 6:00:17 AM Ordering Provider: [facility]01-14-2024 Note ORIGINAL EXAMINATION: CT OF THE HEAD WITHOUT CONTRAST 09/28/2023 9:27 pm TECHNIQUE: CT of the head was performed without the administration of intravenous contrast. Automated exposure control, iterative reconstruction, and/or weight based adjustment of the mA/kV was utilized to reduce the radiation dose to as low as reasonably achievable. COMPARISON: None. HISTORY: ORDERING SYSTEM PROVIDED HISTORY: Reason for Exam: fall, hit back of head. +loc, no prev. neuro hx INJURY Hypertension FINDINGS: BRAIN/VENTRICLES: Acute intracerebral medial left frontal lobe hemorrhage measuring 1.4 x 1.5 x 1.7 cm (AP X transverse X craniocaudal) with mild adjacent edema. Question hyperdense focus in the inferior left frontal lobe extra-axial space measuring 6 mm. There is no mass effect or midline shift. The mccabe-white differentiation is maintained without evidence of an acute infarct. There is no evidence of hydrocephalus. Mild generalized parenchymal volume loss. Scattered foci of hypoattenuation within the subcortical, deep, and periventricular white matter which are nonspecific but most compatible with mild to moderate chronic microvascular angiopathy. ORBITS: Bilateral lens replacement. SINUSES: The visualized paranasal sinuses and mastoid air cells demonstrate no acute abnormality. SOFT TISSUES/SKULL: No acute abnormality of the visualized skull. Soft tissue swelling of the left posterior scalp.. IMPRESSION: Acute intracerebral hemorrhage in the left frontal lobe measuring 1.4 x 1.5 x 1.7 cm with mild adjacent edema. No midline shift or significant mass effect. Question 6 mm hyperdense focus in the inferior left frontal lobe extra-axial space which may represent focal subdural bleed versus artifact. Soft tissue swelling of the left posterior scalp. Critical results were called by Dr. Shahriar Zaman to Dr. Pascal On 09/28/2023 at 21:37. I have personally reviewed the images of this examination and agree with the resident's findings and interpretation. Interpreted by: Adams Abebe Preliminary Report By: Shahriar Zaman Electronically signed By Adams Abebe Dictated Date: 09/28/2023 9:30:40 PM Prelim Date: 09/28/2023 9:44:19 PM Sign Date: 09/28/2023 9:47:53 PM Ordering Provider: [facility]01-14-2024 Note ORIGINAL EXAMINATION: ONE XRAY VIEW OF THE CHEST 09/28/2023 9:26 pm COMPARISON: None. HISTORY: ORDERING SYSTEM PROVIDED HISTORY: Reason for Exam: SOB FINDINGS: The cardiomediastinal silhouette appears mildly prominent likely secondary to patient positioning and portable technique. There are low lung volumes. Bibasilar streaky opacities are noted, left greater than right. No large pleural effusion or visible pneumothorax. No significant central vascular congestion. Bony detail is suboptimal. Degenerative change of the spine. IMPRESSION: Low lung volumes with bibasilar streaky opacity/atelectasis. I have personally reviewed the images of this examination and agree with the resident's findings and interpretation. Interpreted by: Adams Abebe Preliminary Report By: Shahriar Zaman Electronically signed By Adams Abebe Dictated Date: 09/28/2023 9:27:37 PM Prelim Date: 09/28/2023 9:30:25 PM Sign Date: 09/28/2023 9:37:22 PM Ordering Provider: [facility]01-14-2024 NoteATRIAL FLUTTER LEFT BUNDLE BRANCH BLOCK Electronic Signature: JATINDER WEAVER MD 09/28/2023 21:18:[address] [place] [address] 04-28-2023 Miscellaneous Notes* Telephone Encounter - Chante Perry Coord - 01/10/2023 10:09 AM EDT Patient's calling regarding the lab orders that are in the system from Dr. Yung. Dr. Yung' nurse tried to release the orders that Dr. Driver wants done, but she could not do it. The computer will not allow them to be released until 30 days before his next appointment with Dr. Yung, and that is in April. Dr. Driver will have to place an order for the labs that he wants. The patient would like to go Friday morning for labs. If questions, Mrs. Blunt can be reached at [phone]. Chante Perry PSS * Telephone Encounter - Shawn De Luna - 01/10/2023 9:19 AM EDT Orders for labs were already ordered and in the system from another provider. I called patient,spoke with and explained this to her. documented in this encounter[facility] NoteHNO ID: [id number] Author: Brice Driver, DO Service: ? Author Type: Physician Type: Progress Notes Filed: 01/09/2023 6:01 PM Note Text: [facility] January 09, 2023 CC: Right upper abdomen and bilateral flank pain SUBJECTIVE: Patient returns today for further discussion regarding his persistent pain complaints. He has dealt with pain situated anteriorly and laterally just below the ribs on the right side. It previously worked him up and scheduled him for MRI of the flank and pelvis in light of his persistent symptoms. Patient without any significant radicular pain component. Denies any significant axial spine pain complaints. Here today to review results of pelvic MRI with particular attention to region above the right iliac crest. Since last visit: He continues to deny bowel/bladder incontinence, denies fever, denies night pain, denies unintentional weight loss, denies clumsiness of hands or dropping things, denies clumsiness of feet, tripping or falling. Denies any constitutional or myelopathic symptomatology. No interval change in PMHX, PSHX, Allergies, FamHx or ROS. PMH: PAST MEDICAL HISTORY Diagnosis Date Anxiety state, unspecified Benign neoplasm of colon Dizziness and giddiness Hyperplasia of prostate Other and unspecified hyperlipidemia Otogenic pain Psychosexual dysfunction with inhibited sexual excitement Type II or unspecified type diabetes mellitus without mention of complication, not stated as uncontrolled Unspecified constipation Unspecified otitis media PSH: PAST SURGICAL HISTORY Procedure Laterality Date APPENDECTOMY HX COLONOSCOPY FLX DX W/COLLJ SPEC WHEN PFRMD 02/23/2002 Colonoscopy COLONOSCOPY FLX DX W/COLLJ SPEC WHEN PFRMD 05/03/1997 Colonoscopy COLONOSCOPY FLX DX W/COLLJ SPEC WHEN PFRMD 03/27/1993 Colonoscopy COLONOSCOPY FLX DX W/COLLJ SPEC WHEN PFRMD 06/18/1988 Colonoscopy ESOPHAGOGASTRODUODENOSCOPY TRANSORAL DIAGNOSTIC 06/18/1988 EGD EYE SURGERY HX HERNIA REPAIR HX PAST SURGICAL HISTORY OF 02/18/1989 left varicocelectomy PAST SURGICAL HISTORY OF cataract PAST SURGICAL HISTORY OF hemorrhoidal surgery REPAIR FIRST ABDOMINAL WALL HERNIA Hernia repair, incisional RPR 1ST INGUN HRNA AGE 4 YRS/> REDUCIBLE Hernia repair, inguinal Social history: Social History Tobacco Use Smoking status: Never Smokeless tobacco: Former Vaping Use Vaping Use: Never used Substance Use Topics Alcohol use: Yes Alcohol/week: 3.0 standard drinks Types: 3 Standard drinks or equivalent per week Drug use: Never Fam history: FAMILY HISTORY Problem Relation Age of Onset Colon Cancer Brother Reviewed and updated with patient. ALLERGIES: Penicillins DATA REVIEW: Reviewed patient's pelvic MRI with particular attention to the region near the right iliac crest. On imaging no clear explanation for his pain complaints. No inflammatory T2 signal changes along this region. Patient with anterior lateral location of the gallbladder.No clear evidence of obstructive process or significantly dilated gallbladder. OBJECTIVE: Vital Signs: Resp 12 Ht 170.2 cm (5' 7 ) Wt 80.3 kg (177 lb) BMI 27.72 kg/m? ASSESSMENT: General:Patient in no apparent distress, afebrile, well appearing Lungs:No labored breathing, symetric chest excursion, no tachypnia Heart:No lower limb edema, pulses palpable and symetric dorsalis pedis and radial, no cyanosis Abdominal:Non distended abdomen Neuro:Strength intact bilateral lower limbs Muscular:Tenderness to palpation of right Upper quadrant abdominal pain to palpation and percussion. No significant tenderness to palpation of the lowest ribs in this region. Palpation just at the inferior border of the ribs and along the abdomen does reproduce patient's typical pain DX: Pain of upper abdomen (primary encounter diagnosis) PLAN: I reviewed patient's abdominal CT with particular attention to the region above the iliac crest on the right side. No evidence of inflammatory process or bursitis. As mentioned above palpation in this region below the right lowest rib patient does experience pain. On imaging only findings in this region is the edge of gallbladder. Advised patient at this time I would recommend he proceed with labs which were previously scheduled. Will evaluate liver function tests I advised patient I do not suspect underlying pathology is related to his spine. Not certain there is any clear indication for interventional procedures to address his pain complaints. Once we evaluate his liver function test may still recommend evaluationThe liver and gallbladder Brice Driver DO, MPH Staff Physician [facility] CC: Sent electronically Isabella Yung MD This document has been created with the use of voice recognition technology. It may contain inaccuracies: misspellings, inaccurate syntax or word sense that escaped revi (more content not included)...[facility]04-27-2023 History of Present illness Narrative* Brice Driver DO - 01/09/2023 5:33 PM EDT Follow-up Visit [facility] January 09, 2023 CC: Right upper abdomen and bilateral flank pain SUBJECTIVE: Patient returns today for further discussion regarding his persistent pain complaints. He has dealtwith pain situated anteriorly and laterally just below the ribs on the right side. It previously worked him up and scheduled him for MRI of the flank and pelvis in light of his persistent symptoms. Patient without any significant radicular pain component. Denies any significant axial spine pain complaints. Here today to review results of pelvic MRI with particular attention to region above the right iliac crest. Since last visit: He continues to deny bowel/bladder incontinence, denies fever, denies night pain, denies unintentional weight loss, denies clumsiness of hands or dropping things, denies clumsiness of feet, tripping or falling. Denies any constitutional or myelopathic symptomatology. No interval change in PMHX, PSHX, Allergies, FamHx or ROS. PMH: PAST MEDICAL HISTORY Diagnosis Date Anxiety state, unspecified Benign neoplasm of colon Dizziness and giddiness Hyperplasia of prostate Other and unspecified hyperlipidemia Otogenic pain Psychosexual dysfunction with inhibited sexual excitement Type II or unspecified type diabetes mellitus without mention of complication, not stated as uncontrolled Unspecified constipation Unspecified otitis media PSH: PAST SURGICAL HISTORY Procedure Laterality Date APPENDECTOMY HX COLONOSCOPY FLX DX W/COLLJ SPEC WHEN PFRMD 02/23/2002 Colonoscopy COLONOSCOPY FLX DX W/COLLJ SPEC WHEN PFRMD 05/03/1997 Colonoscopy COLONOSCOPY FLX DX W/COLLJ SPEC WHEN PFRMD 03/27/1993 Colonoscopy COLONOSCOPY FLX DX W/COLLJ SPEC WHEN PFRMD 06/18/1988 Colonoscopy ESOPHAGOGASTRODUODENOSCOPY TRANSORAL DIAGNOSTIC 06/18/1988 EGD EYE SURGERY HX HERNIA REPAIR HX PAST SURGICAL HISTORY OF 02/18/1989 left varicocelectomy PAST SURGICAL HISTORY OF cataract PAST SURGICAL HISTORY OF hemorrhoidal surgery REPAIR FIRST ABDOMINAL WALL HERNIA Hernia repair, incisional RPR 1ST INGUN HRNA AGE 4 YRS/> REDUCIBLE Hernia repair, inguinal Social history: Social History Tobacco Use Smoking status: Never Smokeless tobacco: Former Vaping Use Vaping Use: Never used Substance Use Topics Alcohol use: Yes Alcohol/week: 3.0 standard drinks Types: 3 Standard drinks or equivalent per week Drug use: Never Fam history: FAMILY HISTORY Problem Relation Age of Onset Colon Cancer Brother Reviewed and updated with patient. ALLERGIES: Penicillins DATA REVIEW: Reviewed patient's pelvic MRI with particular attention to the region near the right iliac crest. On imaging no clear explanation for his pain complaints. No inflammatory T2 signal changes along thisregion. Patient with anterior lateral location of the gallbladder.No clear evidence of obstructive process or significantly dilated gallbladder. OBJECTIVE: Vital Signs: Resp 12 Ht 170.2 cm (5' 7 ) Wt 80.3 kg (177 lb) BMI 27.72 kg/m ASSESSMENT: General:Patient in no apparent distress, afebrile, well appearing Lungs:No labored breathing, symetric chest excursion, no tachypnia Heart:No lower limb edema, pulses palpable and symetric dorsalis pedis and radial, no cyanosis Abdominal:Non distended abdomen Neuro:Strength intact bilateral lower limbs Muscular:Tenderness to palpation of right Upper quadrant abdominal pain to palpation and percussion. No significant tenderness to palpation of the lowest ribs in this region. Palpation just at the inferior border of the ribs and along the abdomen does reproduce patient's typical pain DX: Pain of upper abdomen (primary encounter diagnosis) PLAN: I reviewed patient's abdominal CT with particular attention to the region above the iliac crest on the right side. No evidence of inflammatory process or bursitis. As mentioned above palpation in this region below the right lowest rib patient does experience pain. On imaging only findings in this region is the edge of gallbladder. Advised patient at this time I would recommend he proceed with labs which were previously scheduled. Will evaluate liver function tests I advised patient I do not suspect underlying pathology is related to his spine. Not certain there is any clear indication for interventional procedures to address his pain complaints. Once we evaluate his liver function test may still recommend evaluationThe liver and gallbladder Brice Driver DO, MPH Staff Physician [facility] CC: Sent electronically Isabella Yung MD This document has been created with the use of voice recognition technology. It may contain inaccuracies: misspellings, inaccurate syntax or word sense that escaped review. documented in this encounterMem[facility]04-27-2023 Miscellaneous Notes* Telephone Encounter - Brice Driver DO - 01/09/2023 12:58 PM EDT Patient arrived at clinic assistant front end manager today. He was advised that he had an appointment at 1150. Apparently hold has been placed but schedule was full. Patient left without being seen. I had advised assistant front end manager to let patient know we could see him after the morning patients were seen. But patient left. I called to speak with patient after his departure to let him know I was willing to see him and was not sure why they left. Brice Driver DO documented in this encounterMemorial [facility]04-27-2023 Miscellaneous Notes* Telephone Encounter - Michelle Kennedy SAMIA - 01/09/2023 12:50 PM EDT Patient Inna calling upset that she said had appt scheduled today with Dr Brice Driver at 1150 am but when they got to [place] was no appt and refused to see him, they said they could see him at end of the day. 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 She did not schedule another appt since booking into end february. said has been dealing this right hip flank area pain for a year. Now is asking what should they do now, she is asking who should they see now? She had seen pain management and had injections and nothing has helped at all. is very frustrated since took solong to get appts set up. Aware PCP is out of the office this week and not back until January 13. Please advise documented in this encounterMem[facility]04-17-2023 Miscellaneous Notes* Telephone Encounter - Rani Escobar LPN - 12/30/2022 3:04 PM EDT Spoke with and is agreeable to take 1 tablet twice daily. Asked that script be sent to [facility]. Did not want any to local pharmacy. * Telephone Encounter - Meera Jacobson APRN.CNP - 12/30/2022 1:10 PM EDT I am not sure how he is taking the glimepiride at 6 mg, is he taking 1 and a half tabs daily? We can actually increase it to the 4 mg tablet twice daily so he can take 1 whole tab in the am and 1 whole tab in the pm to equal 8 mg over the course of a day. I will send in the new script for this way.Can we clarify if this goes to mail order or to a local pharmacy? * Telephone Encounter - Joanie Donald RN - 12/30/2022 12:32 PM EDT Patient's calling for refill of Glimepiride. She is asking for 6 mg which she says the dose was increased to in June. She says his blood sugars are still high. She says he just got a new meter and she is not sure what is blood sugars are running. She says a couple weeks ago his blood sugarswere running high on the old meter. She will call back in a few days with AM fasting blood sugar readings before getting medication refilled. Joanie oDnald RN documented in this encounterMemorial [facility]03-13-2023 Miscellaneous Notes* Telephone Encounter - Joanie Wood [facility] [place] - 11/25/2022 2:46 PM EDT Patient's called; states that they would like to hear back from Dr Driver as to review of imaging and recommendations staci; states they canceled appt on 11/22 because they live in [facility] expecting the weather to be bad; understands that Dr Driver is very busy but would appreciate response either by phone or MyChart staci; ph. [phone] * Telephone Encounter - Amy Spaulding [facility] - 11/25/2022 10:45 AM EDT Pt's called following up from the message on 11/22/22. Please call to let them know if they can have a phone call to provide MRI results. documented in this encounterMemorial [facility]03-07-2023 History of Present illness Narrative* Rose Vidal RT(Donovan) - 11/19/2022 1:40 PM EST Radiology Service Progress Note PATIENT NAME: Enrico Live DATE OF SERVICE: November 19, 2022 TIME: 2:19 PM PATIENT IDENTITY VERIFICATION COMPLETED USING TWO (2) IDENTIFIERS: Name and Date of confirmedby patient verbally. FALL SCREENING: Has the patient had 2 falls in the last year or 1 fall with injury or currently using an Ambulatory Assistive Device (Walker, Cane, Wheelchair, Crutches, etc.)? No PATIENT GENDER DATA: Male PATIENT RELEVANT IMPLANT DATA REVIEWED: Yes RADIOLOGY DEPARTMENT: MR; Exam(s) Completed: Lower MSK: Pelvis, bilateral PERIPHERAL IV DATA: Not applicable SIGNED BY: RT Marian(Donovan) November 19, 2022 2:19 PM documented in this encounterMemorial [facility]03-02-2023 Miscellaneous Notes* Telephone Encounter - Marilee Garvin LPN - 11/14/2022 2:03 PM EST Signed and faxed back. * Telephone Encounter - Kayce Shah LPN - 11/12/2022 4:35 PM EST Received papers and forwarded to PCP to address. Kayce Shah LPN * Telephone Encounter - Marilee Garvin LPN - 11/08/2022 9:49 AM EST Rec'd and to pcp to sign. * Telephone Encounter - Leona Rangel LPN - 11/07/2022 11:59 AM EST called and there insurance will cover a Sb # 2 thru [employer]. [employer] will be faxing you papers so please watch for them. PH: [phone] ext [phone] FAX: [phone] Leona Rangel LPN documented in this encounterMemorial Health [facility]02-24-2023 History of Present illness Narrative* Brice Driver, - 11/08/2022 10:32 AM EST Images from the original note were not included. [facility] Low Back Pain - Chronic (> 12 weeks) Initial Exam SUBJECTIVE HISTORY OF PRESENT ILLNESS: Enrico Live is a 86 year old male who presents with a chief complaint of low back pain and is seen in consultation requested by Dr. Clair Arrieta for an opinion regarding R sided lateral back pain. My final recommendations will be communicated back to the requesting physician by way of shared medical record or letter via US mail. Other Issues Addressed at the Visit Today: None. Precipitating Event: None- ~ 1 year ago, all of a sudden PAIN EVALUATION 11/08/2022 1007 Pain Level: 8 Pain Location: -- Right abd Description: Aching Duration Units: Years Frequency: Continuous Pain Radiation: R sided iliac crest pain, nonradiating, sharp in nature Aggravating Factors: stretching and leaning on left side Alleviating Factors: ice, massage, ibuprofen Pain Ratio: Pain in the back is greater than in the leg Prior Therapy: Epidural- helped for 2-3 weeks Epidural- lasted less than 24 hours Shalini Velasco Litigation: No Workers' Compensation: No Denies fevers, chills, unintentional weight loss, bowel/bladder incontinence, clumsiness, trauma, saddle anesthesias, hx of cancer, hx of immunosuppressants. Denies any recent falls. YELLOW & BLUE FLAGS No-Neg Attitude; Back Pain is Disabling No-Avoiding Activity (for Fear of Pain) No-Depression or Anxiety Disorders No-Social Problems No-Substance Use Disorder No-Job Dissatisfaction No-Financial Disincentives Patient Entered Questionnaires PROMIS Score Percentiles Percentiles provide an indication of how the patient's score ranks in relation to the general population. Higher percentile rankings indicate better function/quality of life. 50th percentile is the average of the general population and indicates half of respondents had a worse score. Depression Screening: PHQ-9 Self-Harm (Item 9) response options: 0 Not at all 1 Several days 2 More than half the days 3 Nearly every day PHQ-9 Levels: 0-4 No - mild depression 5-9 Mild depression 10-14 Moderate depression 15-19 Moderately severe depression 20-27 Severe depression ACTIVE PROBLEM LIST Type 2 Diabetes Mellitus Without Complication, Without Long-Term Current Use of Insulin (Hcc) Non-Seasonal Allergic Rhinitis Chronic Cough Hyperlipidemia, Unspecified Benign Prostatic Hyperplasia With Urinary Frequency Constipation Vertigo Acquired Hypothyroidism Gastroesophageal Reflux Disease Without Esophagitis Ruq Abdominal Pain Right Flank Tenderness Right Lower Quadrant Abdominal Pain PAST MEDICAL HISTORY Diagnosis Date Anxiety state, unspecified Benign neoplasm of colon Dizziness and giddiness Hyperplasia of prostate Other and unspecified hyperlipidemia Otogenic pain Psychosexual dysfunction with inhibited sexual excitement Type II or unspecified type diabetes mellitus without mention of complication, not stated as uncontrolled Unspecified constipation Unspecified otitis media PAST SURGICAL HISTORY Procedure Laterality Date APPENDECTOMY HX COLONOSCOPY FLX DX W/COLLJ SPEC WHEN PFRMD 02/23/2002 Colonoscopy COLONOSCOPY FLX DX W/COLLJ SPEC WHEN PFRMD 05/03/1997 Colonoscopy COLONOSCOPY FLX DX W/COLLJ SPEC WHEN PFRMD 03/27/1993 Colonoscopy COLONOSCOPY FLX DX W/COLLJ SPEC WHEN PFRMD 06/18/1988 Colonoscopy ESOPHAGOGASTRODUODENOSCOPY TRANSORAL DIAGNOSTIC 06/18/1988 EGD EYE SURGERY HX HERNIA REPAIR HX PAST SURGICAL HISTORY OF 02/18/1989 left varicocelectomy PAST SURGICAL HISTORY OF cataract PAST SURGICAL HISTORY OF hemorrhoidal surgery REPAIR FIRST ABDOMINAL WALL HERNIA Hernia repair, incisional RPR 1ST INGUN HRNA AGE 4 YRS/> REDUCIBLE Hernia repair, inguinal Social History Tobacco Use Smoking status: Never Smokeless tobacco: Former Vaping Use Vaping Use: Never used Substance Use Topics Alcohol use: Yes Alcohol/week: 3.0 standard drinks Types: 3 Standard drinks or equivalent per week Drug use: Never FAMILY HISTORY Problem Relation Age of Onset Colon Cancer Brother ALLERGIES Allergen Reactions Penicillins CURRENT MEDICATIONS: primidone (MYSOLINE) 50 mg tablet Take 2 tablets by mouth daily at bedtime. polyethylene glycol 3350 (MIRALAX, GLYCOLAX) 17 gram/dose powder Take 17 g by mouth once daily as needed. flash glucose scanning reader (FREESTYLE SB 2 READER) Check sugars as directed. E11.65 flash glucose sensor (FREESTYLE SB 2 SENSOR) kit Check sugars as directed. E11.65 levothyroxine (SYNTHROID) 75 mcg tablet Take 1 tablet by mouth once daily. Take on empty stomach. For thyroid. lidocaine (LIDODERM) 5 % Apply 1 Patch as directed every 24 hours. Remove patch after 12 hours. Location: right lower quadrant/right side abdomen glimepiride (AMARYL) 4 mg tablet Take 1 tablet by mouth daily with breakfast. omeprazole (PRILOSEC) 40 mg capsule Take 1 capsule by mouth once daily. atorvastatin (LIPITOR) 40 mg tablet Take 1 tablet by mouth daily at bedtime. For cholesterol. FLUoxetine (PROZAC) 10 mg capsule Take 1 capsule by mouth once daily. fluticasone (FLONASE) 50 mcg/actuation nasal spray Use 2 Sprays in each nostril once daily. Rinse mouth after use. (ENT instructed to use daily) tiZANidine (ZANAFLEX) 4 mg tablet Take 1 tablet by mouth every 8 hours as needed (muscle spasms). magnesium oxide 400 mg magnesium cap Take 1 capsule by mouth twice daily. multivitamin tablet Take 1 tablet by mouth once daily. omega 2-ueo-fbn-fish oil 183.3 mg-75 mg -91.6 mg-306 mg cap Take 1 capsule by mouth once daily. calcium carbonate (CALCIUM 600) 600 mg calcium (1,500 mg) tab Take 0.75 tablets by mouth once daily. Milk Thistle 150 mg cap Take 1 capsule by mouth once daily. ubidecarenone Q-10 (CO Q-10) 10 mg cap Take 1 capsule by mouth once daily. aspirin, enteric coated (ASPIRIN, ENTERIC COATED) 81 mg EC tablet Take 1 tablet by mouth once daily. Cholecalciferol, Vitamin D3, 2,000 unit cap Take 1 capsule by mouth once daily. blood sugar diagnostic (VeratectUCH VERIO) test strip Test blood sugar(s) 2 times daily. Dx: Type 2 DM- Uncontrolled E11.65 Insulin: No Lancets lancets Test blood sugar(s) 2 times daily. Dx: Type 2 DM - Uncontrolled E11.65 Insulin: No REVIEW OF SYSTEMS: GENERAL: No weight loss or malaise MUSCULOSKELETAL: See HPI NEURO: No history of headaches, syncope, paralysis, seizures or tremors OBJECTIVE: PHYSICAL EXAM Ht 170.2 cm (5' 7 ) Wt 79.8 kg (176 lb) BMI 27.57 kg/m GENERAL APPEARANCE: Well appearing, well-hydrated, well nourished and alert NEURO/PSYCH: oriented to time, place, and person, speech normal, mental status intact GAIT: unable to tandem gait; can take a few steps on heels and toes with some difficulty POSTURE: Posture and spinal curves are normal PALPATION: TTP along anterior iliac crest MUSCULOSKELETAL: Extended Low Back & Leg Exam DTRs Knee Hypo-reflexive Hypo-reflexive Ankle Hypo-reflexive Hypo-reflexive Medial Hamstring Hypo-reflexive Hypo-reflexive Babinski normal normal Strength of Lower Extremities Extensor Hallux Longus 5/5 5/5 Ankle Dorsiflexion 5/5 5/5 Ankle Plantarflexion 5/5 5/5 Knee Extension 5/5 5/5 Hip Range of Motion RIGHT LEFT Flexion Mildly Restricted Mildly Restricted Extension Mildly Restricted Mildly Restricted Abduction Mildly Restricted Mildly Restricted Adduction Mildly Restricted Mildly Restricted Internal Rotation Mildly Restricted Mildly Restricted External Rotation Mildly Restricted Mildly Restricted Upper Body Reflex Exam RIGHT LEFT Reflex Status Reflex Status Biceps 2+ Normal 2+ Normal Triceps 2+ Normal 2+ Normal Brachioradialis 2+ Normal 2+ Normal Rodriguez's Sign absent absent Upper Extremity Strength RIGHT LEFT Strength (MMT) Strength (MMT) Shoulder Abduction 5/5 5/5 Biceps 5/5 5/5 Triceps 5/5 5/5 Resisted Suppination 5/5 5/5 Wrist Extension 5/5 5/5 Interossei 5/5 5/5 NEUROSENSORY: Pin prick; Within Normal Limits Data Review: CT abd/pelvis 08/26/2022- RESULT: Liver: No mass. Biliary: No bile duct dilation. Gallbladder is unremarkable. Spleen: No mass. No splenomegaly. Pancreas: No mass or duct dilation. Adrenals: 1.6 cm right adrenal nodule. Adrenal glands are otherwise unremarkable. Kidneys: 6.8 cm right renal cyst. No suspicious mass or gross obstructive uropathy GI tract: No dilation or wall thickening. Lymph nodes: No abdominal or pelvic lymphadenopathy. Mesentery/Peritoneum: No ascites or mass. Retroperitoneum: No mass. Vasculature: - Abdominal aorta and iliac arteries: Atherosclerotic calcifications without aneurysm. - Celiac and SMA: Patent without stenosis. - Portal venous system (SMV, splenic vein, portal vein and branches): Patent. - Hepatic veins: Patent. Pelvis: No mass, ascites or fluid collection. Bones/Soft Tissues: Small fat-containing umbilical hernia.. Degenerative changes throughout the spine. Multilevel disc space narrowing and osteophytosis. Scoliosis Lower thorax: Calcific pleural plaque formation [employer] Inspector (topogram) images: No additional findings. ASSESSMENT/PLAN (R10.10) Pain of upper abdomen (primary encounter diagnosis) (M51.36) DDD (degenerative disc disease), lumbar (R10.31) Abdominal wall pain in right lower quadrant (M51.36) Degeneration of lumbar intervertebral disc PLAN: 1) Imaging Studies- MRI LS report reviewed. Will order MRI pelvis 2) Therapy/Rehabilitation- pending results of MRI pelvis 3) Pharmacological Management- continue current meds 4) Spine/Surgical Interventions- n/a 5) Consultations: n/a 6) Follow up: after MRI pelvis Mayo Nunez DO Medical Spine Fellow PGY-5 I examined the patient and discussed case with Mayo Nunez DO, the medical spine fellow. I agree with above diagnosis and recommendations. Discussed with patient. Patient has pain along the iliac crest, severe tenderness to this region symptoms have been presentfor quite some time. Nondermatomal distribution. Potential for cluneal nerve involvement was a possibility, however, after more thorough evaluation do not suspect this is the etiology of his symptomseither. Patient did have history of prior cholecystectomy 3 years prior. In light of the location of his symptoms and the severity of pain with palpation over this region cannot rule out potential underlying scarring or other postsurgical process as an explanation for his pain. Although for the most part I would suspect a myofascial type of pathology the degree of his symptoms certainly would warrant additional work-up. No clear evidence of radicular pattern to his current pain complaints. On exam no evidence of myotomal weakness. Although there are variable degrees of foraminal narrowing injections by Dr. Gonzalez attpamela L1-L2 as well as the L4-L5 level in addition trigger point injections directly over the iliac crest in the region of pain have all failed to provide any relief Advised patient and his , at this time I would recommend we pursue MRI of the pelvis with particular attention to the right ilium and region just medial to the ileum along the muscular insertions. Will rule out any type of inflammatory process or bursitis as an explanation for his symptoms. In light of the chronicity of his pain and the severity with palpation I do not suspect pursuing additional treatments such as physical therapy are likely to address his yet unknown painful etiology. SIGNATURE: Brice Driver DO PATIENT NAME: Enrico Live DATE: November 08, 2022 TIME: 10:32 AM CC: Sent electronically [place] [id number] [facility] [id number] documented in this encounter[facility] History of Present illness Narrative* Isabella Yung MD - 11/06/2022 2:11 PM EST This note was created using NoteWriter. Subjective Enrico Live is a 86 year old male. Patient presents with: F/U 6 months SUBJECTIVE: Enrico Live is a 86 year old year old gentleman here today for 6 month follow up appointment for review of medical conditions. Stable on current meds. Hard to use test strips with hand tremors. A little over 200 still. Some are better. Started back at [employer] for regular exercise the past month 3 times a week usually. Taking Synthroid correctly and TSH still high on recent labs. Side pain--good days and bad days. PAST MEDICAL HISTORY Diagnosis Date Anxiety state, unspecified Benign neoplasm of colon Dizziness and giddiness Hyperplasia of prostate Other and unspecified hyperlipidemia Otogenic pain Psychosexual dysfunction with inhibited sexual excitement Type II or unspecified type diabetes mellitus without mention of complication, not stated as uncontrolled Unspecified constipation Unspecified otitis media Current Outpatient Medications Medication Sig cyclobenzaprine (FLEXERIL) 10 mg tablet Take 0.5-1 tablets by mouth twice daily as needed for muscle spasm or pain (May make very drowsy). primidone (MYSOLINE) 50 mg tablet Take 2 tablets by mouth daily at bedtime. As directed lidocaine (LIDODERM) 5 % Apply 1 Patch as directed every 24 hours. Remove patch after 12 hours. Location: right lower quadrant/right side abdomen glimepiride (AMARYL) 4 mg tablet Take 1 tablet by mouth daily with breakfast. levothyroxine (SYNTHROID) 25 mcg tablet Take 2 tablets by mouth once daily. Take on empty stomach. For thyroid. omeprazole (PRILOSEC) 40 mg capsule Take 1 capsule by mouth once daily. atorvastatin (LIPITOR) 40 mg tablet Take 1 tablet by mouth daily at bedtime. For cholesterol. FLUoxetine (PROZAC) 10 mg capsule Take 1 capsule by mouth once daily. fluticasone (FLONASE) 50 mcg/actuation nasal spray Use 2 Sprays in each nostril once daily. Rinse mouth after use. (ENT instructed to use daily) tiZANidine (ZANAFLEX) 4 mg tablet Take 1 tablet by mouth every 8 hours as needed (muscle spasms). polyethylene glycol 3350 (MIRALAX, GLYCOLAX) 17 gram/dose powder Take 17 g by mouth once daily as needed. flash glucose sensor (FREESTYLE SB 2 SENSOR) kit Check sugars as directed. E11.65 flash glucose scanning reader (FREESTYLE SB 2 READER) Check sugars as directed. E11.65 magnesium oxide 400 mg magnesium cap Take 1 capsule by mouth twice daily. multivitamin tablet Take 1 tablet by mouth once daily. omega 7-lfh-vnh-fish oil 183.3 mg-75 mg -91.6 mg-306 mg cap Take 1 capsule by mouth once daily. calcium carbonate (CALCIUM 600) 600 mg calcium (1,500 mg) tab Take 0.75 tablets by mouth once daily. Milk Thistle 150 mg cap Take 1 capsule by mouth once daily. ubidecarenone Q-10 (CO Q-10) 10 mg cap Take 1 capsule by mouth once daily. aspirin, enteric coated (ASPIRIN, ENTERIC COATED) 81 mg EC tablet Take 1 tablet by mouth once daily. Cholecalciferol, Vitamin D3, 2,000 unit cap Take 1 capsule by mouth once daily. blood sugar diagnostic (VeratectUCH VERIO) test strip Test blood sugar(s) 2 times daily. Dx: Type 2 DM- Uncontrolled E11.65 Insulin: No Lancets lancets Test blood sugar(s) 2 times daily. Dx: Type 2 DM - Uncontrolled E11.65 Insulin: No No current facility-administered medications for this visit. Review of Systems Objective BP 158/86 Pulse 67 Resp 16 Wt 79.8 kg (176 lb) BMI 27.57 kg/m Physical Exam Vitals reviewed. Constitutional: Appearance: Normal appearance. Eyes: Conjunctiva/sclera: Conjunctivae normal. Cardiovascular: Rate and Rhythm: Normal rate and regular rhythm. Heart sounds: Normal heart sounds. Pulmonary: Effort: Pulmonary effort is normal. Breath sounds: Normal breath sounds. Skin: General: Skin is warm and dry. Neurological: General: No focal deficit present. Mental Status: He is alert and oriented to person, place, and time. Psychiatric: Mood and Affect: Mood normal. Behavior: Behavior normal. Thought Content: Thought content normal. Judgment: Judgment normal. Hemoglobin A1C (%) Date Value 11/01/2022 9.0 08/26/2022 9.6 03/13/2022 8.5 08/17/2021 8.4 01/30/2021 7.9 06/26/2020 8.3 06/14/2019 7.5 Assessment and Plan Encounter Diagnosis ICD-10-CM 1. Type 2 diabetes mellitus with hyperglycemia, without long-term current use of insulin ([facility]) E11.65 HGB A1C COMP METABOLIC PANEL CBC LIPID PANEL BASIC ALBUMIN/CREAT RATIO RND UR 2. Essential tremor G25.0 primidone (MYSOLINE) 50 mg tablet 3. Constipation, unspecified constipation type K59.00 polyethylene glycol 3350 (MIRALAX, GLYCOLAX) 17 gram/dose powder 4. Acquired hypothyroidism E03.9 TSH BLD T4 FREE/FREE THYROX 5. Vitamin D deficiency E55.9 VITAMIN D 25 HYDROXY 6. Hyperlipidemia, unspecified hyperlipidemia type E78.5 LIPID PANEL BASIC 7. Encounter for immunization Z23 Above issues addressed with patient. Patient involved in shared decision making for management of medical issues. History and medications reviewed. Epic updated as needed Refills and/or prescriptions taken care of and meds adjusted as indicated after reviewed history, exam and labs. Health Maintenance reviewed. Updated record and/or ordered tests as recorded. Encouraged on efforts at healthy diet and regular exercise and adequate sleep. Needs to keep working on diet and exercise with lifestyle changes for effective weight loss as well as control of DM, and control of BP and lipids. Discussed problems patient has with testing his sugars with glucometer and test strips due to his essential tremor making it practically impossible to do. Needs CGM so he can manage his diabetes well. His diabetes is poorly controlled with HgA1C 9.0. Needs to be able to monitor blood sugars so can adjust diet and medications as needed. Will order covered CGM when patient finds out where to send order and what is covered. Isabella Yung MD documented in this encounterMem[facility] Instructions* Patient Instructions* Clair Arrieta APRN.ANNEALING FURNACE TENDER - 08/30/2022 12:10 PM EST For back and abdominal pain: Try taking cyclobenzaprine which is a muscle relaxer for your back pain and lower abdominal pain. This can make you very drowsy. Okay to take 1/2 tablet or take only at bedtime. Schedule appointment with physical therapy. Schedule an appointment with Dr. Brice Driver [facility] For tremor: Try increasing primidone to two 50 mg tablets daily. Let us know if this is working well so we can send in a new prescription for you in 1 week if needed. Repeat CT abdomen and pelvis in about 6 months documented in this encounterMem[facility]12-16-[facility]22 History of Present illness Narrative* Clair Arrieta APRN.CNS - 08/30/2022 11:20 AM EST SUBJECTIVE: DTAP,TDAP,TD(1 - Tdap) Never done SHINGRIX VACCINE(1 of 2) Never done DIABETIC FOOT EXAM due on 06/21/2020 PNEUMOCOCCAL: 65+(2 - PPSV23 if available, else PCV20) due on 06/21/2020 ADVANCE DIRECTIVE DISCUSSION Never done DEPRESSION ASSESSMENT Never done DILATED RETINAL EXAM due on 06/07/2022 HPI Enrico Live is a 86 year old male. PMH significant for ACTIVE PROBLEM LIST Type 2 Diabetes Mellitus Without Complication, Without Long-Term Current Use of Insulin ([facility]) Non-Seasonal Allergic Rhinitis Chronic Cough Hyperlipidemia, Unspecified Benign Prostatic Hyperplasia With Urinary Frequency Constipation Vertigo Acquired Hypothyroidism Gastroesophageal Reflux Disease Without Esophagitis Ruq Abdominal Pain Right Flank Tenderness Right Lower Quadrant Abdominal Pain Seen by Isabella Yung MD. in June for right lower quadrant abdominal pain right flank pain and thoracicolumbar radiculopathy. Treated initially with lidocaine patch. Without significant improvement. Subsequently had spine injection with blood sugar elevation in July 16, 2022. Dr. Florian thought pain was not coming from his back but from soft tissue and recommended subsurface augmentee operator. He was referred to Dr. Gee however he was scheduling out so contact to [facility] to see if could be seen sooner. He underwent colonoscopy August 12, [address] Russo. No concerning findings noted. He continues to note abdominal pain now centered near her umbilicus. CT of abdomen was completed August 26, 2022. This revealed no acute process in the abdomen or pelvis. Right adrenal nodule. Right renal cyst. Small fat-containing umbilical hernia. Calcific pleural plaque formation attributed to possible prior asbestos exposure. Blood pressure well controlled. No cushingoid features. No renal complaints. Primarily concerned with low back pain radiating to right lower abdomen which is affecting his daily life. Previous treatments to date if not helped much. Also would like to increase dose of primidone for tremors. Review of Systems Constitutional: Negative. Gastrointestinal: Positive for abdominal pain. Musculoskeletal: Positive for back pain. Objective BP 128/82 Pulse 68 Resp 16 Wt 79.8 kg (176 lb) BMI 27.57 kg/m Physical Exam Vitals and nursing note reviewed. Constitutional: Appearance: Normal appearance. HENT: Head: Normocephalic and atraumatic. Eyes: Conjunctiva/sclera: Conjunctivae normal. Cardiovascular: Rate and Rhythm: Normal rate. Pulmonary: Effort: Pulmonary effort is normal. Musculoskeletal: Lumbar back: Spasms and tenderness present. Decreased range of motion. Skin: General: Skin is warm and dry. Neurological: Mental Status: He is alert. Mental status is at baseline. ALLERGIES Allergen Reactions Penicillins lidocaine (LIDODERM) 5 % Apply 1 Patch as directed every 24 hours. Remove patch after 12 hours. Location: right lower quadrant/right side abdomen glimepiride (AMARYL) 4 mg tablet Take 1 tablet by mouth daily with breakfast. levothyroxine (SYNTHROID) 25 mcg tablet Take 2 tablets by mouth once daily. Take on empty stomach. For thyroid. omeprazole (PRILOSEC) 40 mg capsule Take 1 capsule by mouth once daily. atorvastatin (LIPITOR) 40 mg tablet Take 1 tablet by mouth daily at bedtime. For cholesterol. FLUoxetine (PROZAC) 10 mg capsule Take 1 capsule by mouth once daily. fluticasone (FLONASE) 50 mcg/actuation nasal spray Use 2 Sprays in each nostril once daily. Rinse mouth after use. (ENT instructed to use daily) tiZANidine (ZANAFLEX) 4 mg tablet Take 1 tablet by mouth every 8 hours as needed (muscle spasms). polyethylene glycol 3350 (MIRALAX, GLYCOLAX) 17 gram/dose powder Take 17 g by mouth once daily as needed. flash glucose sensor (FREESTYLE SB 2 SENSOR) kit Check sugars as directed. E11.65 flash glucose scanning reader (FREESTYLE SB 2 READER) Check sugars as directed. E11.65 magnesium oxide 400 mg magnesium cap Take 1 capsule by mouth twice daily. multivitamin tablet Take 1 tablet by mouth once daily. omega 3-rqa-ioi-fish oil 183.3 mg-75 mg -91.6 mg-306 mg cap Take 1 capsule by mouth once daily. calcium carbonate (CALCIUM 600) 600 mg calcium (1,500 mg) tab Take 0.75 tablets by mouth once daily. Milk Thistle 150 mg cap Take 1 capsule by mouth once daily. ubidecarenone Q-10 (CO Q-10) 10 mg cap Take 1 capsule by mouth once daily. aspirin, enteric coated (ASPIRIN, ENTERIC COATED) 81 mg EC tablet Take 1 tablet by mouth once daily. Cholecalciferol, Vitamin D3, 2,000 unit cap Take 1 capsule by mouth once daily. blood sugar diagnostic (ONETOUCH VERIO) test strip Test blood sugar(s) 2 times daily. Dx: Type 2 DM- Uncontrolled E11.65 Insulin: No Lancets lancets Test blood sugar(s) 2 times daily. Dx: Type 2 DM - Uncontrolled E11.65 Insulin: No cyclobenzaprine (FLEXERIL) 10 mg tablet Take 0.5-1 tablets by mouth twice daily as needed for muscle spasm or pain (May make very drowsy). primidone (MYSOLINE) 50 mg tablet Take 2 tablets by mouth daily at bedtime. As directed iv contrast (will be provided with radiology test) CT ABD/PEL -Inject, intravenously, once for 1 dose.No IV access, insert saline lock prior to the beginning of sedation, infusion, injection of imaging exam. Discontinue saline lock post exam. If Pt. has a central line or IVAD, may access for administration according to line specific nursing protocol. Once exam is complete flush line and de-accessaccording to line specific nursing protocol in the CT contrast administration guidelines link. enteric contrast (will be provided with radiology test) For CT ABD/PEL W IVCON Routine order Administer, As Directed One Time Only, via Oral, Rectal, both Oral and Rectal, Enteric Tube, Stoma or Indwelling Catheter, Enteric Contrast as designated per enteric contrast guidelines PAST MEDICAL HISTORY Diagnosis Date Anxiety state, unspecified Benign neoplasm of colon Dizziness and giddiness Hyperplasia of prostate Other and unspecified hyperlipidemia Otogenic pain Psychosexual dysfunction with inhibited sexual excitement Type II or unspecified type diabetes mellitus without mention of complication, not stated as uncontrolled Unspecified constipation Unspecified otitis media Social History Tobacco Use Smoking status: Never Smokeless tobacco: Former Vaping Use Vaping Use: Never used Substance Use Topics Alcohol use: Yes Alcohol/week: 3.0 standard drinks Types: 3 Standard drinks or equivalent per week Drug use: Never ASSESSMENT/PLAN: 1. Umbilical hernia without obstruction and without gangrene - ICD9: 553.1, ICD10: K42.9 (primary diagnosis) - CONSULT TO GENERAL SURGERY 2. Right lower quadrant abdominal pain - ICD9: 789.03, ICD10: R10.31 - CONSULT TO PHYSICAL THERAPY - CT ABD/PEL W IVCON - IV CONTRAST (RADIOLOGY PROCEDURE) - ENTERIC CONTRAST (RADIOLOGY PROCEDURE) 3. DDD (degenerative disc disease), lumbar - ICD9: 722.52, ICD10: M51.36 - CONSULT TO PHYSICAL THERAPY - CONSULT TO [facility] 4. Essential tremor - ICD9: 333.1, ICD10: G25.0 - PRIMIDONE 50 MG TABLET 5. Adrenal incidentaloma (HCC) - ICD9: 255.8, ICD10: E27.8 6. Renal cyst - ICD9: 753.10, ICD10: N28.1 - CT ABD/PEL W IVCON - IV CONTRAST (RADIOLOGY PROCEDURE) - ENTERIC CONTRAST (RADIOLOGY PROCEDURE) For back and abdominal pain: Try taking cyclobenzaprine which is a muscle relaxer for your back pain and lower abdominal pain. This can make you very drowsy. Okay to take 1/2 tablet or take only at bedtime. Schedule appointment with physical therapy. Schedule an appointment with Dr. Brice Driver spine center [facility] For tremor: Try increasing primidone to two 50 mg tablets daily. Let us know if this is working well so we can send in a new prescription for you in 1 week if needed. Repeat CT abdomen and pelvis in about 6 months Clair Arrieta APRN.CNS Medical Decision Making: Problems: Moderate: 1+ chronic illnesses with change Data: Unique test(s) ordered: 1 Risk: Moderate: Drug management Medical Decision Making Level: 4 - Moderate documented in this encounterMem[facility]12-12-[facility] History of Present illness Narrative* Mary Lou Burroughs, RT(R) - 08/26/2022 3:00 PM EST Radiology Service Progress Note DATE OF SERVICE: August 26, 2022 TIME: 3:58 PM PATIENT IDENTITY VERIFICATION COMPLETED USING TWO (2) STANDARD IDENTIFIERS: Name and Date of confirmed by patient verbally. FALL SCREENING: Has the patient had 2 falls in the last year or 1 fall with injury or currently using an Ambulatory Assistive Device (Walker, Cane, Wheelchair, Crutches, etc.)? No PATIENT GENDER DATA: Male PATIENT RELEVANT IMPLANT DATA REVIEWED: Yes ALLERGIES: Reviewed and unchanged CONTRAST ALLERGY: NO. EXAM: CT -CONTRAST INDUCED NEPHROPATHY RISK FACTORS: Patient age > 60 years CREATININE: Creatinine Date Value Ref Range Status 08/26/2022 0.92 0.73 - 1.22 mg/dL Final 02/05/2022 1.05 0.73 - 1.22 mg/dL Final 01/30/2021 1.04 0.73 - 1.22 mg/dL Final Estimated Glomerular Filtration Rate Date Value Ref Range Status 08/26/2022 81 >=60 mL/min/1.73m Final Comment: Estimated Glomerular Filtration Rate (eGFR) is calculated using the 2020 CKD-EPI creatinine equation. This equation utilizes serum creatinine, sex, and age as parameters. The creatinine assay has traceable calibration to isotope dilution- mass spectrometry. Refer to KDIGO guidelines for clinical interpretation. In patients with unstable renal function, e.g. those with acute kidney injury, the eGFRmay not accurately reflect actual GFR. eGFR- Date Value Ref Range Status 01/30/2021 >60 Final P.O.C.T. RESULTS: POC done: Yes, See Lab Tab August 26, 2022 TREATMENT: N/A PERIPHERAL IV DATA: Ambulatory: A peripheral IV was started in the Left antecubital site with a Angio cath: 22 gauge. RADIOLOGY DEPARTMENT: CT; Exam(s) Completed: Abdomen/Pelvis SIGNATURE: RT Vanessa(Donovan) PATIENT NAME: Enrico Live DATE: August 26, 2022 TIME: 3:58 PM documented in this encounter[facility] Miscellaneous Notes* Telephone Encounter - Kailey Baxter RN - 08/21/2022 4:52 PM EST Pts called and is notified of providers message and instructions. She voices understanding. put through to scheduling to set up appointment for CT. Kailey Baxter RN * Telephone Encounter - Isabella Yung MD - 08/21/2022 1:54 PM EST Labs ordered so may update all his labs no instead of September and include lipids (can do fasting ornonfasting--both ordered). Abdomen and pelvis CT will check gallbladder and pancreas Further evaluation and treatment as indicated. Follow up after CT to review results * Telephone Encounter - Isaura Quinonez RN - 08/20/2022 10:09 AM EST (Inna) returns call and reports that patient has [facility] past 6 months to 1 year. Inna voices frustration and asks that orders be placed to view the gall bladder and pancreas as well as labs to check both. Inna reports patient's pain is getting worse and that he is not able to bend forward much. Pain is to the right of umbilicus slightly above and below per Inna. Declines appointment as he has been seen for this pain twice already. Please review and advise, Isaura Quinonez RN * Telephone Encounter - Rani Escobar LPN - 08/20/2022 9:55 AM EST Called and left a detailed message asking if patient has had other scanning in the last 6 months -1year outside of [facility] or [facility]? * Telephone Encounter - Meera Jacobson APRN.CNP - 08/20/2022 9:23 AM EST I chuyita prefer to see patient to go over his prior testing and do an exam to decide next steps but Iwill forward to Dr. Yung since he is known to her to see if she would like to order testing without seeing patient first. * Telephone Encounter - Rani Escobar LPN - 08/19/2022 2:18 PM EST is hoping that since he has been seen a couple of times for these exact symptoms that the tests can be ordered. She is asking for a ultrasound/HIDA scan to check the gallbladder and if any labs need done would like labs to included pancrease. * Telephone Encounter - Meera Jacobson APRN.KAYY - 08/19/2022 1:47 PM EST Could be gallbladder depending on the pain and exact location. Would they be able to have him come in to be seen to determine next steps in testing/treatment? * Telephone Encounter - Leona Rangel LPN - 08/19/2022 9:22 AM EST calling in and needs to know what to do next for pt. They have had testing and have been told it could be in the soft tissue. Colonoscopy was clear and pt is in severe pain. Pain is to the rightof his belly button and down a little and up. They are wondering if this could be gallbladder. Wifestates pt has not had gallbladder testing. states they have waited for over a week to hear back. Please review and advise . Leona Rangel LPN * Telephone Encounter - Rani Escobar LPN - 08/13/2022 8:14 AM EST Requested records are on PCP desk for review in bin. * Telephone Encounter - Isabella Yung MD - 08/12/2022 7:35 PM EST Check [facility] for results of CT abdomen, CT and/or MRI lumbar and/or thoracic spine for me to review. * Telephone Encounter - Jean Monzon RN - 08/12/2022 2:54 PM EST , Inna, reports patient continues to have RLQ pain for 8 months now. Reports hx 4 yrs ago- appendectomy- didn't go well- was hospitalized for 10 days. Reports has had numerous tests, including CT and MRI of back. Wonder's if he should have MRI or CT of the area that hurts. Reports saw pain mgmt, and chiropractor, and oracle specialist, Dr. Florian- who told them it is not in his back, it's in the soft tissue. Reports recent colonoscopy was good. Please advise . documented in this encounterMem[facility]-28[facility] Nurse Note* Amy Cantu RN - 08/12/2022 12:37 PM EST Arrived in phase II via cart. Left lateral position. Sedated, but responds to verbal stimuli. Colornormal; skin warm and dry. Respirations wnl and unlabored. Abdomen soft and with + bowel sounds in quads X 4. Patient resting comfortably. Family at bedside. Dr. Russo at bedside to review procedure and recommendations. Amy Cantu RN documented in this encounterMem[facility]11[facility]22 History and physical note * Cathy Russo MD - 08/12/2022 12:00 PM EST UPDATED PROCEDURAL SEDATION HISTORY AND PHYSICAL EXAMINATION SERVICE DATE: 08/12/2022 SERVICE TIME: 11:53 PHYSICAL EXAM MUST BE COMPLETED ON ADMISSION PROCEDURE: colonoscopy, possible biopsies Procedure Indications: right sided abdominal pain The History and Physical (completed in the past 30 days) has been reviewed and the patient has beenexamined. The contents accurately reflect the patient's condition with the following additions or revisions since the H&P was completed. ASA Class: ASA Class:: Patient with mild systemic disease Examination indicates no changes. AIRWAY: Airway Visualization of Uvula: Yes Mouth opening greater than 2 fingerbreadths: Yes Neck Full Range of Motion: Yes LUNGS: Lungs clear to auscultation CARDIAC: Regular rhythm,Regular rate Provisional Diagnosis/Treatment Plan: colonoscopy, possible biopsies SEDATION GOAL: Moderate This H&P can be found in the Electronic Medical Record . SIGNATURE: Cathy Russo MD PATIENT NAME: Enrico Live DATE: August 12, 2022 TIME: 11:53 AM Source Note - Cathy Russo MD - 08/12/2022 12:00 PM EST HISTORY AND PHYSICAL Enrico Live 1935 REFERRING PHYSICIAN: Isabella Yung MD CHIEF COMPLAINT: Consult (consult) HPI: The patient is a 86 year old male referred for endoscopy. Enrico notes right sided abdominal pain and his physician has asked for consultation for this. Patient points to the location of the pain and he points to the location of the external olbique musculature. He describes the pain as a severe ache. It has been going on for months He states that stretching out alleviates the pain. He states that flexing inward makes the pain worse. Also twisting and turning makes it worse. He notes a 10# weight loss over months, and admits to decreased appetite. He denies changes in bowel habits. He denies blood in his stools, he denies melena. He states that he last had a colonoscopy in 2010 in [place]. He states that his sister, brother and son had colon cancer. The patient has diabetes. PAST MEDICAL HISTORY Diagnosis Date Anxiety state, unspecified Benign neoplasm of colon Dizziness and giddiness Hyperplasia of prostate Other and unspecified hyperlipidemia Otogenic pain Psychosexual dysfunction with inhibited sexual excitement Type II or unspecified type diabetes mellitus without mention of complication, not stated as uncontrolled Unspecified constipation Unspecified otitis media PAST SURGICAL HISTORY Procedure Laterality Date COLONOSCOPY FLX DX W/COLLJ SPEC WHEN PFRMD 02/23/02 Colonoscopy COLONOSCOPY FLX DX W/COLLJ SPEC WHEN PFRMD 05/03/97 Colonoscopy COLONOSCOPY FLX DX W/COLLJ SPEC WHEN PFRMD 03/27/93 Colonoscopy COLONOSCOPY FLX DX W/COLLJ SPEC WHEN PFRMD 06/18/88 Colonoscopy ESOPHAGOGASTRODUODENOSCOPY TRANSORAL DIAGNOSTIC 06/18/88 EGD PAST SURGICAL HISTORY OF 02/18/89 left varicocelectomy PAST SURGICAL HISTORY OF cataract PAST SURGICAL HISTORY OF hemorrhoidal surgery REPAIR FIRST ABDOMINAL WALL HERNIA Hernia repair, incisional RPR 1ST INGUN HRNA AGE 5 YRS/> REDUCIBLE Hernia repair, inguinal Current Outpatient Medications Medication Sig lidocaine (LIDODERM) 5 % Apply 1 Patch as directed every 24 hours. Remove patch after 12 hours. Location: right lower quadrant/right side abdomen primidone (MYSOLINE) 50 mg tablet Take 1.5 tablets by mouth daily at bedtime. As directed glimepiride (AMARYL) 4 mg tablet Take 1 tablet by mouth daily with breakfast. levothyroxine (SYNTHROID) 25 mcg tablet Take 2 tablets by mouth once daily. Take on empty stomach. For thyroid. omeprazole (PRILOSEC) 40 mg capsule Take 1 capsule by mouth once daily. atorvastatin (LIPITOR) 40 mg tablet Take 1 tablet by mouth daily at bedtime. For cholesterol. FLUoxetine (PROZAC) 10 mg capsule Take 1 capsule by mouth once daily. fluticasone (FLONASE) 50 mcg/actuation nasal spray Use 2 Sprays in each nostril once daily. Rinse mouth after use. (ENT instructed to use daily) tiZANidine (ZANAFLEX) 4 mg tablet Take 1 tablet by mouth every 8 hours as needed (muscle spasms). polyethylene glycol 3350 (MIRALAX, GLYCOLAX) 17 gram/dose powder Take 17 g by mouth once daily as needed. flash glucose sensor (FREESTYLE SB 2 SENSOR) kit Check sugars as directed. E11.65 flash glucose scanning reader (FREESTYLE SB 2 READER) Check sugars as directed. E11.65 magnesium oxide 400 mg magnesium cap Take 1 capsule by mouth twice daily. multivitamin tablet Take 1 tablet by mouth once daily. omega 7-dnk-vqa-fish oil 183.3 mg-75 mg -91.6 mg-306 mg cap Take 1 capsule by mouth once daily. calcium carbonate (CALCIUM 600) 600 mg calcium (1,500 mg) tab Take 0.75 tablets by mouth once daily. Milk Thistle 150 mg cap Take 1 capsule by mouth once daily. ubidecarenone Q-10 (CO Q-10) 10 mg cap Take 1 capsule by mouth once daily. aspirin, enteric coated (ASPIRIN, ENTERIC COATED) 81 mg EC tablet Take 1 tablet by mouth once daily. Cholecalciferol, Vitamin D3, 2,000 unit cap Take 1 capsule by mouth once daily. blood sugar diagnostic ([employer] LAWNUCH VERIO) test strip Test blood sugar(s) 2 times daily. Dx: Type 2 DM- Uncontrolled E11.65 Insulin: No Lancets lancets Test blood sugar(s) 2 times daily. Dx: Type 2 DM - Uncontrolled E11.65 Insulin: No peg 3350-Electrolytes (GOLYTELY) 236-22.74-6.74 -5.86 gram suspension Take 4,000 mL by mouth one time only for 1 dose. Refer to printed prep instructions from your provider. ALLERGIES: Penicillins PERSONAL HISTORY: Social History Tobacco Use Smoking status: Never Smokeless tobacco: Former Vaping Use Vaping Use: Never used Substance Use Topics Alcohol use: Yes Alcohol/week: 6.7 standard drinks Types: 4 Shots of liquor per week Drug use: Never FAMILY HISTORY Problem Relation Age of Onset Colon Cancer Brother The review of systems data was entered by the nurse and reviewed by mt Nursing Notes: Alpa Juarez RN 07/30/2022 4:24 PM Signed REVIEW OF SYSTEMS: General: The patient denies fatigue, NOTES weight loss, denies weight gain, denies feeling hot, anddenies feelings of cold. Eyes: The patient denies glaucoma, NOTES eye injury/surgery, wears glasses or contacts. Ear/Nose/Throat: The patient NOTES allergies, denies hayfever, NOTES ear infections, and denies bloody noses. Cardiovascular: The patient denies chest pain, denies heart disease, denies high blood pressure,denies cardiac stent, denies prior heart attack, denies irregular heart beat, NOTES high cholesterol, denies poor circulation, denies heart failure, other cardiac issues, NOTES claudication, NOTES cold feet, denies peripheral arterial stent. Respiratory: The patient denies tuberculosis, denies pneumonia, denies frequent cough, denies pulmonary embolism, denies shortness of breath, and denies coughing up blood. Gastrointestinal: The patient NOTES difficulty swallowing, NOTES acid reflux, denies ulcers, deniesvomiting, denies jaundice/hepatitis, denies gallbladder problems, denies black or tarry stools, denies hemorrhoids, denies bleeding from rectum, denies diverticulitis, denies constipation, denies diarrhea, denies loss of stool control, and NOTES hernias. Kidney/Bladder: The patient denies kidney stones, denies urine infections, and denies bloody urine. Skin: The patient denies a history of skin cancer, denies bleeding/changing moles, and denies a history of skin rash. Neurologic: The patient denies a history of epilepsy/convulsions, denies headaches, denies head/spinal injuries, and denies stroke/TIA. Psychiatric: The patient denies psychiatric medications, denies depression, and denies voices, denies substance abuse. Endocrine: The patient NOTES thyroid disorders, NOTES diabetes, and denies hormonal problems. Hematologic: The patient NOTES a history of bruising, denies bleeding, and denies anemia, denies blood clots. Infections: The patient NOTES a history of measles and mumps, NOTES rheumatic fever, and denies sexually transmitted diseases. Musculoskeletal: The patient NOTES back pain/injury, NOTES back problems, denies sciatica, denies knee/foot trouble, NOTES arthritis, or denies gout. When was patient's last Mammogram screening? N/A Last Colonoscopy: 2010 [facility] Alpa Juarez RN PHYSICAL EXAMINATION: General: The patient is 86 year old male, well nourished, well hydrated in no acute distress. The patient is oriented to time, place, and person. VITALS: Blood pressure 134/86, pulse 70, temperature 36.4 C (97.5 F), height 170.2 cm (5' 7 ), weight 79 kg (174 lb 3.2 oz), SpO2 96 %. Body mass index is 27.28 kg/m . Head: Normal cephalic, atraumatic Eyes: pupils are equally round, sclera are clear/anicteric, wearing glasses Neck is supple with no tracheal deviation Respiratory: Normal respiratory excursion and pattern. Abdominal exam: benign Extremities: no clubbing, cyanosis or edema. Neuro: non focal Psych: normal mood IMPRESSION: right sided abdominal pain PLAN: I have discussed the above with the patient and his daughter who is present with him. I have offered colonoscopy possible biopsies - for evaluation I have explained the procedure to the patient. I have counseled the patient as to the risks of the procedure, including but not limited to: infection, bleeding, injury to any intrabdominal organs such as liver/spleen, perforation of the GI tract,inability to complete the procedure, complications of anesthesia, etc. - the patient understands. The patient wishes to proceed. I have answered all questions to the patient s satisfaction and the patient has no further questions. Diagnoses: (R10.31, G89.29) Chronic RLQ pain (R10.11) RUQ abdominal pain (R10.819) Right flank tenderness * Cathy Russo MD - 08/12/2022 12:00 PM EST HISTORY AND PHYSICAL Enrico Live 1935 REFERRING PHYSICIAN: Isabella Yung MD CHIEF COMPLAINT: Consult (consult) HPI: The patient is a 86 year old male referred for endoscopy. Enrico notes right sided abdominal pain and his physician has asked for consultation for this. Patient points to the location of the pain and he points to the location of the external olbique musculature. He describes the pain as a severe ache. It has been going on for months He states that stretching out alleviates the pain. He states that flexing inward makes the pain worse. Also twisting and turning makes it worse. He notes a 10# weight loss over months, and admits to decreased appetite. He denies changes in bowel habits. He denies blood in his stools, he denies melena. He states that he last had a colonoscopy in 2010 in [place]. He states that his sister, brother and son had colon cancer. The patient has diabetes. PAST MEDICAL HISTORY Diagnosis Date Anxiety state, unspecified Benign neoplasm of colon Dizziness and giddiness Hyperplasia of prostate Other and unspecified hyperlipidemia Otogenic pain Psychosexual dysfunction with inhibited sexual excitement Type II or unspecified type diabetes mellitus without mention of complication, not stated as uncontrolled Unspecified constipation Unspecified otitis media PAST SURGICAL HISTORY Procedure Laterality Date COLONOSCOPY FLX DX W/COLLJ SPEC WHEN PFRMD 02/23/02 Colonoscopy COLONOSCOPY FLX DX W/COLLJ SPEC WHEN PFRMD 05/03/97 Colonoscopy COLONOSCOPY FLX DX W/COLLJ SPEC WHEN PFRMD 03/27/93 Colonoscopy COLONOSCOPY FLX DX W/COLLJ SPEC WHEN PFRMD 06/18/88 Colonoscopy ESOPHAGOGASTRODUODENOSCOPY TRANSORAL DIAGNOSTIC 06/18/88 EGD PAST SURGICAL HISTORY OF 02/18/89 left varicocelectomy PAST SURGICAL HISTORY OF cataract PAST SURGICAL HISTORY OF hemorrhoidal surgery REPAIR FIRST ABDOMINAL WALL HERNIA Hernia repair, incisional RPR 1ST INGUN HRNA AGE 4 YRS/> REDUCIBLE Hernia repair, inguinal Current Outpatient Medications Medication Sig lidocaine (LIDODERM) 5 % Apply 1 Patch as directed every 24 hours. Remove patch after 12 hours. Location: right lower quadrant/right side abdomen primidone (MYSOLINE) 50 mg tablet Take 1.5 tablets by mouth daily at bedtime. As directed glimepiride (AMARYL) 4 mg tablet Take 1 tablet by mouth daily with breakfast. levothyroxine (SYNTHROID) 25 mcg tablet Take 2 tablets by mouth once daily. Take on empty stomach. For thyroid. omeprazole (PRILOSEC) 40 mg capsule Take 1 capsule by mouth once daily. atorvastatin (LIPITOR) 40 mg tablet Take 1 tablet by mouth daily at bedtime. For cholesterol. FLUoxetine (PROZAC) 10 mg capsule Take 1 capsule by mouth once daily. fluticasone (FLONASE) 50 mcg/actuation nasal spray Use 2 Sprays in each nostril once daily. Rinse mouth after use. (ENT instructed to use daily) tiZANidine (ZANAFLEX) 4 mg tablet Take 1 tablet by mouth every 8 hours as needed (muscle spasms). polyethylene glycol 3350 (MIRALAX, GLYCOLAX) 17 gram/dose powder Take 17 g by mouth once daily as needed. flash glucose sensor (FREESTYLE SB 2 SENSOR) kit Check sugars as directed. E11.65 flash glucose scanning reader (FREESTYLE SB 2 READER) Check sugars as directed. E11.65 magnesium oxide 400 mg magnesium cap Take 1 capsule by mouth twice daily. multivitamin tablet Take 1 tablet by mouth once daily. omega 4-bgy-xfx-fish oil 183.3 mg-75 mg -91.6 mg-306 mg cap Take 1 capsule by mouth once daily. calcium carbonate (CALCIUM 600) 600 mg calcium (1,500 mg) tab Take 0.75 tablets by mouth once daily. Milk Thistle 150 mg cap Take 1 capsule by mouth once daily. ubidecarenone Q-10 (CO Q-10) 10 mg cap Take 1 capsule by mouth once daily. aspirin, enteric coated (ASPIRIN, ENTERIC COATED) 81 mg EC tablet Take 1 tablet by mouth once daily. Cholecalciferol, Vitamin D3, 2,000 unit cap Take 1 capsule by mouth once daily. blood sugar diagnostic ([employer] LAWNUCH VERIO) test strip Test blood sugar(s) 2 times daily. Dx: Type 2 DM- Uncontrolled E11.65 Insulin: No Lancets lancets Test blood sugar(s) 2 times daily. Dx: Type 2 DM - Uncontrolled E11.65 Insulin: No peg 3350-Electrolytes (GOLYTELY) 236-22.74-6.74 -5.86 gram suspension Take 4,000 mL by mouth one time only for 1 dose. Refer to printed prep instructions from your provider. ALLERGIES: Penicillins PERSONAL HISTORY: Social History Tobacco Use Smoking status: Never Smokeless tobacco: Former Vaping Use Vaping Use: Never used Substance Use Topics Alcohol use: Yes Alcohol/week: 6.7 standard drinks Types: 4 Shots of liquor per week Drug use: Never FAMILY HISTORY Problem Relation Age of Onset Colon Cancer Brother The review of systems data was entered by the nurse and reviewed by mt Nursing Notes: Alpa Juarez RN 07/30/2022 4:24 PM Signed REVIEW OF SYSTEMS: General: The patient denies fatigue, NOTES weight loss, denies weight gain, denies feeling hot, anddenies feelings of cold. Eyes: The patient denies glaucoma, NOTES eye injury/surgery, wears glasses or contacts. Ear/Nose/Throat: The patient NOTES allergies, denies hayfever, NOTES ear infections, and denies bloody noses. Cardiovascular: The patient denies chest pain, denies heart disease, denies high blood pressure,denies cardiac stent, denies prior heart attack, denies irregular heart beat, NOTES high cholesterol, denies poor circulation, denies heart failure, other cardiac issues, NOTES claudication, NOTES cold feet, denies peripheral arterial stent. Respiratory: The patient denies tuberculosis, denies pneumonia, denies frequent cough, denies pulmonary embolism, denies shortness of breath, and denies coughing up blood. Gastrointestinal: The patient NOTES difficulty swallowing, NOTES acid reflux, denies ulcers, deniesvomiting, denies jaundice/hepatitis, denies gallbladder problems, denies black or tarry stools, denies hemorrhoids, denies bleeding from rectum, denies diverticulitis, denies constipation, denies diarrhea, denies loss of stool control, and NOTES hernias. Kidney/Bladder: The patient denies kidney stones, denies urine infections, and denies bloody urine. Skin: The patient denies a history of skin cancer, denies bleeding/changing moles, and denies a history of skin rash. Neurologic: The patient denies a history of epilepsy/convulsions, denies headaches, denies head/spinal injuries, and denies stroke/TIA. Psychiatric: The patient denies psychiatric medications, denies depression, and denies voices, denies substance abuse. Endocrine: The patient NOTES thyroid disorders, NOTES diabetes, and denies hormonal problems. Hematologic: The patient NOTES a history of bruising, denies bleeding, and denies anemia, denies blood clots. Infections: The patient NOTES a history of measles and mumps, NOTES rheumatic fever, and denies sexually transmitted diseases. Musculoskeletal: The patient NOTES back pain/injury, NOTES back problems, denies sciatica, denies knee/foot trouble, NOTES arthritis, or denies gout. When was patient's last Mammogram screening? N/A Last Colonoscopy: 2010 [facility] Alpa Juarez RN PHYSICAL EXAMINATION: General: The patient is 86 year old male, well nourished, well hydrated in no acute distress. The patient is oriented to time, place, and person. VITALS: Blood pressure 134/86, pulse 70, temperature 36.4 C (97.5 F), height 170.2 cm (5' 7 ), weight 79 kg (174 lb 3.2 oz), SpO2 96 %. Body mass index is 27.28 kg/m . Head: Normal cephalic, atraumatic Eyes: pupils are equally round, sclera are clear/anicteric, wearing glasses Neck is supple with no tracheal deviation Respiratory: Normal respiratory excursion and pattern. Abdominal exam: benign Extremities: no clubbing, cyanosis or edema. Neuro: non focal Psych: normal mood IMPRESSION: right sided abdominal pain PLAN: I have discussed the above with the patient and his daughter who is present with him. I have offered colonoscopy possible biopsies - for evaluation I have explained the procedure to the patient. I have counseled the patient as to the risks of the procedure, including but not limited to: infection, bleeding, injury to any intrabdominal organs such as liver/spleen, perforation of the GI tract,inability to complete the procedure, complications of anesthesia, etc. - the patient understands. The patient wishes to proceed. I have answered all questions to the patient s satisfaction and the patient has no further questions. Diagnoses: (R10.31, G89.29) Chronic RLQ pain (R10.11) RUQ abdominal pain (R10.819) Right flank tenderness documented in this encounterMem[facility] History of Present illness Narrative* Cathy Russo MD - 07/30/2022 4:44 PM EST HISTORY AND PHYSICAL Enrico Live 1935 REFERRING PHYSICIAN: Isabella Yung MD CHIEF COMPLAINT: Consult (consult) HPI: The patient is a 86 year old male referred for endoscopy. Enrico notes right sided abdominal pain and his physician has asked for consultation for this. Patient points to the location of the pain and he points to the location of the external olbique musculature. He describes the pain as a severe ache. It has been going on for months He states that stretching out alleviates the pain. He states that flexing inward makes the pain worse. Also twisting and turning makes it worse. He notes a 10# weight loss over months, and admits to decreased appetite. He denies changes in bowel habits. He denies blood in his stools, he denies melena. He states that he last had a colonoscopy in 2010 in [place]. He states that his sister, brother and son had colon cancer. The patient has diabetes. PAST MEDICAL HISTORY Diagnosis Date Anxiety state, unspecified Benign neoplasm of colon Dizziness and giddiness Hyperplasia of prostate Other and unspecified hyperlipidemia Otogenic pain Psychosexual dysfunction with inhibited sexual excitement Type II or unspecified type diabetes mellitus without mention of complication, not stated as uncontrolled Unspecified constipation Unspecified otitis media PAST SURGICAL HISTORY Procedure Laterality Date COLONOSCOPY FLX DX W/COLLJ SPEC WHEN PFRMD 02/23/02 Colonoscopy COLONOSCOPY FLX DX W/COLLJ SPEC WHEN PFRMD 05/03/97 Colonoscopy COLONOSCOPY FLX DX W/COLLJ SPEC WHEN PFRMD 03/27/93 Colonoscopy COLONOSCOPY FLX DX W/COLLJ SPEC WHEN PFRMD 06/18/88 Colonoscopy ESOPHAGOGASTRODUODENOSCOPY TRANSORAL DIAGNOSTIC 06/18/88 EGD PAST SURGICAL HISTORY OF 02/18/89 left varicocelectomy PAST SURGICAL HISTORY OF cataract PAST SURGICAL HISTORY OF hemorrhoidal surgery REPAIR FIRST ABDOMINAL WALL HERNIA Hernia repair, incisional RPR 1ST INGUN HRNA AGE 4 YRS/> REDUCIBLE Hernia repair, inguinal Current Outpatient Medications Medication Sig lidocaine (LIDODERM) 5 % Apply 1 Patch as directed every 24 hours. Remove patch after 12 hours. Location: right lower quadrant/right side abdomen primidone (MYSOLINE) 50 mg tablet Take 1.5 tablets by mouth daily at bedtime. As directed glimepiride (AMARYL) 4 mg tablet Take 1 tablet by mouth daily with breakfast. levothyroxine (SYNTHROID) 25 mcg tablet Take 2 tablets by mouth once daily. Take on empty stomach. For thyroid. omeprazole (PRILOSEC) 40 mg capsule Take 1 capsule by mouth once daily. atorvastatin (LIPITOR) 40 mg tablet Take 1 tablet by mouth daily at bedtime. For cholesterol. FLUoxetine (PROZAC) 10 mg capsule Take 1 capsule by mouth once daily. fluticasone (FLONASE) 50 mcg/actuation nasal spray Use 2 Sprays in each nostril once daily. Rinse mouth after use. (ENT instructed to use daily) tiZANidine (ZANAFLEX) 4 mg tablet Take 1 tablet by mouth every 8 hours as needed (muscle spasms). polyethylene glycol 3350 (MIRALAX, GLYCOLAX) 17 gram/dose powder Take 17 g by mouth once daily as needed. flash glucose sensor (FREESTYLE SB 2 SENSOR) kit Check sugars as directed. E11.65 flash glucose scanning reader (FREESTYLE SB 2 READER) Check sugars as directed. E11.65 magnesium oxide 400 mg magnesium cap Take 1 capsule by mouth twice daily. multivitamin tablet Take 1 tablet by mouth once daily. omega 4-ktp-kay-fish oil 183.3 mg-75 mg -91.6 mg-306 mg cap Take 1 capsule by mouth once daily. calcium carbonate (CALCIUM 600) 600 mg calcium (1,500 mg) tab Take 0.75 tablets by mouth once daily. Milk Thistle 150 mg cap Take 1 capsule by mouth once daily. ubidecarenone Q-10 (CO Q-10) 10 mg cap Take 1 capsule by mouth once daily. aspirin, enteric coated (ASPIRIN, ENTERIC COATED) 81 mg EC tablet Take 1 tablet by mouth once daily. Cholecalciferol, Vitamin D3, 2,000 unit cap Take 1 capsule by mouth once daily. blood sugar diagnostic (ONETOUCH VERIO) test strip Test blood sugar(s) 2 times daily. Dx: Type 2 DM- Uncontrolled E11.65 Insulin: No Lancets lancets Test blood sugar(s) 2 times daily. Dx: Type 2 DM - Uncontrolled E11.65 Insulin: No peg 3350-Electrolytes (GOLYTELY) 236-22.74-6.74 -5.86 gram suspension Take 4,000 mL by mouth one time only for 1 dose. Refer to printed prep instructions from your provider. ALLERGIES: Penicillins PERSONAL HISTORY: Social History Tobacco Use Smoking status: Never Smokeless tobacco: Former Vaping Use Vaping Use: Never used Substance Use Topics Alcohol use: Yes Alcohol/week: 6.7 standard drinks Types: 4 Shots of liquor per week Drug use: Never FAMILY HISTORY Problem Relation Age of Onset Colon Cancer Brother The review of systems data was entered by the nurse and reviewed by mt Nursing Notes: Alpa Juarez RN 07/30/2022 4:24 PM Signed REVIEW OF SYSTEMS: General: The patient denies fatigue, NOTES weight loss, denies weight gain, denies feeling hot, anddenies feelings of cold. Eyes: The patient denies glaucoma, NOTES eye injury/surgery, wears glasses or contacts. Ear/Nose/Throat: The patient NOTES allergies, denies hayfever, NOTES ear infections, and denies bloody noses. Cardiovascular: The patient denies chest pain, denies heart disease, denies high blood pressure,denies cardiac stent, denies prior heart attack, denies irregular heart beat, NOTES high cholesterol, denies poor circulation, denies heart failure, other cardiac issues, NOTES claudication, NOTES cold feet, denies peripheral arterial stent. Respiratory: The patient denies tuberculosis, denies pneumonia, denies frequent cough, denies pulmonary embolism, denies shortness of breath, and denies coughing up blood. Gastrointestinal: The patient NOTES difficulty swallowing, NOTES acid reflux, denies ulcers, deniesvomiting, denies jaundice/hepatitis, denies gallbladder problems, denies black or tarry stools, denies hemorrhoids, denies bleeding from rectum, denies diverticulitis, denies constipation, denies diarrhea, denies loss of stool control, and NOTES hernias. Kidney/Bladder: The patient denies kidney stones, denies urine infections, and denies bloody urine. Skin: The patient denies a history of skin cancer, denies bleeding/changing moles, and denies a history of skin rash. Neurologic: The patient denies a history of epilepsy/convulsions, denies headaches, denies head/spinal injuries, and denies stroke/TIA. Psychiatric: The patient denies psychiatric medications, denies depression, and denies voices, denies substance abuse. Endocrine: The patient NOTES thyroid disorders, NOTES diabetes, and denies hormonal problems. Hematologic: The patient NOTES a history of bruising, denies bleeding, and denies anemia, denies blood clots. Infections: The patient NOTES a history of measles and mumps, NOTES rheumatic fever, and denies sexually transmitted diseases. Musculoskeletal: The patient NOTES back pain/injury, NOTES back problems, denies sciatica, denies knee/foot trouble, NOTES arthritis, or denies gout. When was patient's last Mammogram screening? N/A Last Colonoscopy: 2010 [facility] Alpa Juarez RN PHYSICAL EXAMINATION: General: The patient is 86 year old male, well nourished, well hydrated in no acute distress. The patient is oriented to time, place, and person. VITALS: Blood pressure 134/86, pulse 70, temperature 36.4 C (97.5 F), height 170.2 cm (5' 7 ), weight 79 kg (174 lb 3.2 oz), SpO2 96 %. Body mass index is 27.28 kg/m . Head: Normal cephalic, atraumatic Eyes: pupils are equally round, sclera are clear/anicteric, wearing glasses Neck is supple with no tracheal deviation Respiratory: Normal respiratory excursion and pattern. Abdominal exam: benign Extremities: no clubbing, cyanosis or edema. Neuro: non focal Psych: normal mood Assessment IMPRESSION: right sided abdominal pain PLAN: I have discussed the above with the patient and his daughter who is present with him. I have offered colonoscopy possible biopsies - for evaluation I have explained the procedure to the patient. I have counseled the patient as to the risks of the procedure, including but not limited to: infection, bleeding, injury to any intrabdominal organs such as liver/spleen, perforation of the GI tract,inability to complete the procedure, complications of anesthesia, etc. - the patient understands. I have told patient to hold his diabetic medications until after the procedure for that day. The patient was offered a surgery/procedure at a [facility] facility. The provider and patient have discussed in detail the risk of exposure to and/or potential harm posed by the COVID-19 viruswith having a surgery/procedure at this time versus the risk of delaying the surgery/procedure. It is not possible to know either the risk of delaying the surgery or procedure or chance of getting aninfection with perfect accuracy, but a joint decision was made between the patient and the providerto proceed at this time with the scheduled surgery/procedure. The patient wishes to proceed. I have answered all questions to the patient s satisfaction and the patient has no further questions. Diagnoses: (R10.31, G89.29) Chronic RLQ pain (R10.11) RUQ abdominal pain (R10.819) Right flank tenderness I have confirmed and edited as necessary, the PFSH and ROS obtained by others. Consultation requested by Dr. Isabella Yung for an opinion regarding patient's right sided abdominal pain. My final recommendations will be communicated back to the requesting physician by way of shared Medical record or letter to requesting physician via US mail. Return to Clinic: The patient will be scheduled for colonoscopy at [facility] on 08/12/2022 Medical Decision Making: Problems: Low: Stable chronic illness Risk: Low: Low risk from testing/treatment Medical Decision Making Level: 3 - Low Cathy Russo MD documented in this encounterMemorial [facility]11[facility] Instructions* Patient Instructions* Cathy Russo MD - 07/30/2022 4:36 PM EST Images from the original note were not included. Bowel Preparation Instructions for: Golytely, Nulytely, Trilyte or Colyte (polyethylene glycol 3350and electrolytes) IF YOU DO NOT FOLLOW THESE DIRECTIONS, YOUR COLONOSCOPY WILL BE CANCELLED. [place] Instructions: Your bowel must be empty so that your doctor can clearly view your colon. Follow all of the instructions in this handout EXACTLY as they are written. Do NOT eat any solid food the ENTIRE day before your colonoscopy. Drink only clear liquids. Buy your bowel preparation at least 5 days before your colonoscopy. TRANSPORTATION on the Day of Your Exam A responsible person MUST be present with you at Check In prior to your colonoscopy and REMAIN in the endoscopy area until you are discharged. You are NOT ALLOWED to drive, take a taxi or bus, or leave the Endoscopy Center ALONE. If you do not have a responsible otr flatbed driver (family member or friend) with you to take you home, your exam cannot be done with sedation and will be cancelled. Please bring a list of all of your current medications, including any Over-the Counter medications with you. Medications If you take insulin, diabetic medications or blood thinners such as Coumadin (warfarin), Plavix (clopidogrel), Ticlid (ticlopidine hydrochloride), Agrylin (anagrelide), Xarelto (Rivaroxaban), Pradaxa(Dabigatran), Eliquis (Apixaban), and Effient (Prasugrel). You MUST call the doctors who orders those medicines for instructions on altering the dosage before your colonoscopy. All other medications should be taken the day of the exam with a sip of water including ASPIRIN. Five (5) Days Before Your Colonoscopy Do NOT take medicines that stop diarrhea - such as Imodium, Kaopectate, or Pepto Bismol. Do NOT take fiber supplements - such as Metamucil, Citrucel, or Perdiem. Do NOT take products that contain iron - such as multi-vitamins (the label lists what is in the products). Do NOT take Vitamin E. Buy the prescription bowel preparation solution at your local pharmacy or drugstore pharmacy. 08/2019 Bowel Preparation Instructions for: Golytely, Nulytely, Trilyte or Colyte (polyethylene glycol 3350and electrolytes) Three (3) Days Before Your Colonoscopy Do NOT eat high-fiber foods - such as popcorn, beans, seeds (flax, sunflower, quinoa), multigrain bread, nuts, salad/vegetables, or fresh and dried fruit. One (1) Day Before Your Colonoscopy Only drink clear liquids the ENTIRE DAY before your colonoscopy. Do NOT eat any solid foods. Drink at least 8 ounces of clear liquids every hour after waking up. The clear liquids you can drink include: Clear Liquid (NO RED LIQUIDS) DO NOT DRINK Gatorade, Pedialyte or Powerade Clear broth or bouillon Coffee or tea (no milk or non-dairy creamer) Carbonated and non-carbonated soft drinks Stephen-Aid or other fruit flavored drinks Strained fruit juices (no pulp) Jell-O, popsicles, hard candy Water Alcohol Milk or non-dairy creamers Noodles or vegetables in soup Juice with pulp Liquid you cannot see through Do not use tobacco/vaping products The bowel preparation solution will be consumed in two parts. Mix the solution the evening before your colonoscopy and refrigerate before drinking. You may add the flavor pack that came with the bowel preparation. Do NOT add ice, sugar or any other flavorings to the solution. Part 1 At 6:00 PM - Evening before your colonoscopy Drink an 8-oz glass of bowel preparation every 10 minutes for a total of 8 glasses. You may continue to drink clear liquids until midnight. Part 2 On the day of your colonoscopy you may drink clear liquids up to (three) 3 hours before your procedure. 4 1/2 hours before your colonoscopy Drink an 8-oz glass of bowel preparation every 10 minutes for a total of 8 glasses. Fifteen (15) minutes later, drink an 8-oz glass of clear liquids every 15 minutes for a total of 2 glasses. You may continue to drink clear liquids up to (three) 3 hours before your exam. 2 08/2019 documented in this encounterMemorial [facility]11[facility] Nurse Note* Alpa Juarez RN - 07/30/2022 4:16 PM EST REVIEW OF SYSTEMS: General: The patient denies fatigue, NOTES weight loss, denies weight gain, denies feeling hot, anddenies feelings of cold. Eyes: The patient denies glaucoma, NOTES eye injury/surgery, wears glasses or contacts. Ear/Nose/Throat: The patient NOTES allergies, denies hayfever, NOTES ear infections, and denies bloody noses. Cardiovascular: The patient denies chest pain, denies heart disease, denies high blood pressure,denies cardiac stent, denies prior heart attack, denies irregular heart beat, NOTES high cholesterol, denies poor circulation, denies heart failure, other cardiac issues, NOTES claudication, NOTES cold feet, denies peripheral arterial stent. Respiratory: The patient denies tuberculosis, denies pneumonia, denies frequent cough, denies pulmonary embolism, denies shortness of breath, and denies coughing up blood. Gastrointestinal: The patient NOTES difficulty swallowing, NOTES acid reflux, denies ulcers, deniesvomiting, denies jaundice/hepatitis, denies gallbladder problems, denies black or tarry stools, denies hemorrhoids, denies bleeding from rectum, denies diverticulitis, denies constipation, denies diarrhea, denies loss of stool control, and NOTES hernias. Kidney/Bladder: The patient denies kidney stones, denies urine infections, and denies bloody urine. Skin: The patient denies a history of skin cancer, denies bleeding/changing moles, and denies a history of skin rash. Neurologic: The patient denies a history of epilepsy/convulsions, denies headaches, denies head/spinal injuries, and denies stroke/TIA. Psychiatric: The patient denies psychiatric medications, denies depression, and denies voices, denies substance abuse. Endocrine: The patient NOTES thyroid disorders, NOTES diabetes, and denies hormonal problems. Hematologic: The patient NOTES a history of bruising, denies bleeding, and denies anemia, denies blood clots. Infections: The patient NOTES a history of measles and mumps, NOTES rheumatic fever, and denies sexually transmitted diseases. Musculoskeletal: The patient NOTES back pain/injury, NOTES back problems, denies sciatica, denies knee/foot trouble, NOTES arthritis, or denies gout. When was patient's last Mammogram screening? N/A Last Colonoscopy: 2010 [facility] Alpa Juarez RN documented in this encounterMemorial [facility]11-[facility]-2022 Miscellaneous Notes* Telephone Encounter - Meera Jacobson APRN.CNP - 07/30/2022 12:41 PM EST Noted, will wait and see if she calls back and send other referral if needed. * Telephone Encounter - Lizette Mckenna RN - 07/30/2022 9:47 AM EST Patient's Inna calling in to check on status of message below. Informed Inna of provider's message below. Inna reports patient has NOT developed any new symptoms, however pain seems to be more frequent. States pain is in his front right side . Inna agreeable to speak with coin purse assembler today to discuss [facility] gastro appt availability for patient to have colonoscopy staci. Inna states if [facility] gastroenterology unable to fit patient in soon, she will call us back and request gastroenterology consult order, demographics and recent OV notes be faxed to Dr. Dewayne Patterson (general surgeon who has treated pt in past) at [facility]: FAX #:[phone]. Lizette Mckenna RN * Telephone Encounter - Isabella Yung MD - 07/29/2022 7:39 PM EST Made consult urgent since patient has been having symptoms several months now and now pain management is saying they think it is GI. Do not want him waiting months to be seen. See if any new symptoms have developed (nausea or vomiting, fevers or chills, change in bowel habits, change in pain). Verify pain flank/side and RUQ and RLQ * Telephone Encounter - Leona Rangel LPN - 07/29/2022 4:10 PM EST called in and pt was to Dr. Florian, resource recovery specialist and he told them his pain is not coming from the back. He did agree pt's back is a mess, but his pain is not coming from there. He feels it is in the soft tissue, large or small intestines. He wanted pt to see a [facility] Tender. Dr. Gee at the [facility] is booking way out Asking for a referral for gastro and try get him in to see a doctor here at [facility]. Pt's pain is increasing and they do not know what to do. Please advise when the referral is in and help get apt booked. Leona Rangel LPN documented in this encounterMemorial [facility]11-04-2022 Miscellaneous Notes* Telephone Encounter - Kailey Baxter RN - 07/19/2022 12:30 PM EDT Pts called and is notified of providers message and instructions. She voices understanding. She states it was still high, but coming down a little bit. She didn't know the exact numbers, but hasthem on a chart at home. She states she will call in if they need another prescription sent in if his BS keeps running high. Kailey Baxter RN * Telephone Encounter - Isabella Yung MD - 07/18/2022 8:39 PM EDT See if his sugars have come down yet. If sugars staying over 250, can take extra glimepiride half pill (2mg dose) with breakfast (in addition to 4 mg dose he takes) or with supper. If already most of the time under 250, does not need to add a med. Can send a RX to [facility] or locally if needs to take extra half pill frequently. * Telephone Encounter - Maki Cee LPN - 07/16/2022 2:40 PM EDT Pt's calls to report pt got an epidural today and last time he had this done his sugars went over 300. At last appt reports that Dr. Yung said there was something that could get atthe pharmacy that could help bring sugars down. is asking what that is and also how high is too high and when should worry about sugars. Please review and advise. Maki Cee LPN documented in this encounterMemorial [facility]10-25-2022 Miscellaneous Notes* Telephone Encounter - Marilee Garvin LPN - 07/09/2022 10:28 AM EDT Pharmacy notified. * Telephone Encounter - Marilee Garvin LPN - 07/04/2022 4:58 PM EDT Images from the original note were not included. Prior authorization approved Payer: [employer] [phone] CaseId:[id number];Status:Approved;Review Type:Prior Auth;Coverage Start Date:06/04/2022;Coverage End Date:07/04/2023; Approval Details Authorized from June 04, 2022 to July 04, 2023 * Telephone Encounter - Marilee Garvin LPN - 07/04/2022 4:56 PM EDT PA completed. Waiting for response. * Telephone Encounter - Marilee Garvin LPN - 07/04/2022 4:24 PM EDT Electronic PA requested. * Telephone Encounter - Jean Monzon RN - 07/04/2022 4:09 PM EDT Prior Authorization Documentation Prior authorization requested for the following medication: Medication: Lidocaine patch 5% Provider: [employer] Company Name: [employer] Phone number: [phone] Patient ID number: [id number] Pharmacy Name: [facility] documented in this encounterMemorial [facility]10-18-[facility]22 History of Present illness Narrative* Isabella Yung MD - 07/02/2022 7:24 PM EDT This note was created using Scancellriter. Subjective Enrico Live is a 86 year old male. Patient presents with: Follow Up SUBJECTIVE: Enrico Live is a 86 year old year old gentleman here today for follow up appointment for reviewof medical conditions. Dr. Gonzalez worked with him on pain treatment. Will follow up next . Back injection did not help more than 4 weeks. Pain was gone for 4 weeks. Muscle relaxant, Vicodin and Ibuprofen (3 pills in AM and around dinner) after back injection did not help. (noted sugars went to 300) Has helped but pain not resolved. Noted on exam noted tenderness in muscle--injections tried but pain relief only had lasted 24 hours. Had MRI done. Saw chiropractor between me and pain management. Back pain is chronic but that is better with working with chiropractor. Does get leg symptoms if stands for long periods. Has to keep moving--a few minutes and right leg starts to bother him. Gets pain and has had problems with balance. PAST MEDICAL HISTORY Diagnosis Date Anxiety state, unspecified Benign neoplasm of colon Dizziness and giddiness Hyperplasia of prostate Other and unspecified hyperlipidemia Otogenic pain Psychosexual dysfunction with inhibited sexual excitement Type II or unspecified type diabetes mellitus without mention of complication, not stated as uncontrolled Unspecified constipation Unspecified otitis media Current Outpatient Medications Medication Sig primidone (MYSOLINE) 50 mg tablet Take 1.5 tablets by mouth daily at bedtime. As directed glimepiride (AMARYL) 4 mg tablet Take 1 tablet by mouth daily with breakfast. levothyroxine (SYNTHROID) 25 mcg tablet Take 2 tablets by mouth once daily. Take on empty stomach. For thyroid. omeprazole (PRILOSEC) 40 mg capsule Take 1 capsule by mouth once daily. atorvastatin (LIPITOR) 40 mg tablet Take 1 tablet by mouth daily at bedtime. For cholesterol. FLUoxetine (PROZAC) 10 mg capsule Take 1 capsule by mouth once daily. fluticasone (FLONASE) 50 mcg/actuation nasal spray Use 2 Sprays in each nostril once daily. Rinse mouth after use. (ENT instructed to use daily) tiZANidine (ZANAFLEX) 4 mg tablet Take 1 tablet by mouth every 8 hours as needed (muscle spasms). polyethylene glycol 3350 (MIRALAX, GLYCOLAX) 17 gram/dose powder Take 17 g by mouth once daily as needed. flash glucose sensor (FREESTYLE BS 2 SENSOR) kit Check sugars as directed. E11.65 flash glucose scanning reader (FREESTYLE SB 2 READER) Check sugars as directed. E11.65 magnesium oxide 400 mg magnesium cap Take 1 capsule by mouth twice daily. multivitamin tablet Take 1 tablet by mouth once daily. omega 3-fhq-okv-fish oil 183.3 mg-75 mg -91.6 mg-306 mg cap Take 1 capsule by mouth once daily. calcium carbonate (CALCIUM 600) 600 mg calcium (1,500 mg) tab Take 0.75 tablets by mouth once daily. Milk Thistle 150 mg cap Take 1 capsule by mouth once daily. ubidecarenone Q-10 (CO Q-10) 10 mg cap Take 1 capsule by mouth once daily. aspirin, enteric coated (ASPIRIN, ENTERIC COATED) 81 mg EC tablet Take 1 tablet by mouth once daily. Cholecalciferol, Vitamin D3, 2,000 unit cap Take 1 capsule by mouth once daily. blood sugar diagnostic (ONETOUCH VERIO) test strip Test blood sugar(s) 2 times daily. Dx: Type 2 DM- Uncontrolled E11.65 Insulin: No Lancets lancets Test blood sugar(s) 2 times daily. Dx: Type 2 DM - Uncontrolled E11.65 Insulin: No No current facility-administered medications for this visit. Review of Systems Objective BP 118/70 Pulse 77 Wt 78.9 kg (174 lb) SpO2 95% BMI 27.66 kg/m Physical Exam Vitals reviewed. Constitutional: Appearance: Normal appearance. Eyes: Conjunctiva/sclera: Conjunctivae normal. Cardiovascular: Rate and Rhythm: Normal rate and regular rhythm. Heart sounds: Normal heart sounds. Pulmonary: Effort: Pulmonary effort is normal. Breath sounds: Normal breath sounds. Abdominal: Palpations: Abdomen is soft. Tenderness: There is abdominal tenderness (indicates pain in right flank around to RUQ and RLQ). Skin: General: Skin is warm and dry. Neurological: General: No focal deficit present. Mental Status: He is alert and oriented to person, place, and time. Psychiatric: Mood and Affect: Mood normal. Behavior: Behavior normal. Thought Content: Thought content normal. Judgment: Judgment normal. Assessment and Plan Encounter Diagnosis ICD-10-CM 1. Chronic RLQ pain R10.31 G89.29 Still sounds like radiculopathy 2. Radiculopathy of thoracolumbar region M54.15 3. Right flank tenderness R10.819 Above issues addressed with patient and . Ongoing pain issues. Prior evaluations reviewed (XR lumbar and thoracic spine; US kidney/bladder; US abd RUQ) . At this time it does sound like pinched nerve issue. Has follow up with pain management, Dr. Gonzalez. As noted in HPI, has worked with chiropractor. Further evaluation and treatment as indicated. Patient involved in shared decision making for management of medical issues. History and medications reviewed. Epic updated as needed Refills and/or prescriptions taken care of and meds adjusted as indicated after reviewed history, exam and labs. Health Maintenance reviewed. Updated record and/or ordered tests as recorded. Encouraged on efforts at healthy diet and regular exercise and adequate sleep. Isabella Yung MD [facility] Miscellaneous Notes* Telephone Encounter - Marilee Garvin LPN - 07/02/2022 11:28 AM EDT Completed 04/16/22. [facility] * Telephone Encounter - Isabella Yung MD - 07/01/2022 6:59 PM EDT Make sure have MRI report for appointment to review * Telephone Encounter - Oly Roberts RN - 07/01/2022 11:50 AM EDT Patient's calls and states that patient continues to have pain on his right side below ribs. Patient went to chiropractor which did not help. Chiropractor referred patient to pain management. Patient currently is seeing Dr. Gonzalez. Patient has had epidurals and shot in muscles which has not worked. Patient had an MRI that was done at [facility]. feels like something is getting missed and that the wrong area is being looked at. set up appointment with Dr. Yung tomorrow night 07/02/2022 to discuss next steps. Oly Roberts RN documented in this encounter[facility]22 Miscellaneous Notes* Telephone Encounter - Isabella Yung MD - 05/17/2022 7:12 PM EDT The following approved medication requests have been transmitted electronically. Requested Prescriptions Signed Prescriptions Disp Refills glimepiride (AMARYL) 4 mg tablet 90 tablet 3 Sig: Take 1 tablet by mouth daily with breakfast. Authorizing Provider: ISABELLA YUNG levothyroxine (SYNTHROID) 25 mcg tablet 180 tablet 3 Sig: Take 2 tablets by mouth once daily. Take on empty stomach. For thyroid. Authorizing Provider: ISABELLA YUNG primidone (MYSOLINE) 50 mg tablet 90 tablet 1 Sig: Take 1 tablet by mouth daily at bedtime. As directed Authorizing Provider: ISABELLA YUNG omeprazole (PRILOSEC) 40 mg capsule 90 capsule 3 Sig: Take 1 capsule by mouth once daily. Authorizing Provider: ISABELLA YUNG atorvastatin (LIPITOR) 40 mg tablet 90 tablet 3 Sig: Take 1 tablet by mouth daily at bedtime. For cholesterol. Authorizing Provider: ISABELLA YUNG FLUoxetine (PROZAC) 10 mg capsule 90 capsule 3 Sig: Take 1 capsule by mouth once daily. Authorizing Provider: ISABELLA YUNG MD * Telephone Encounter - Marilee Garvin LPN - 05/17/2022 11:33 AM EDT Last seen pcp 03/15/22. Next appt arranged for 11/06/2022. * Telephone Encounter - Cynthia West Pss - 05/17/2022 11:21 AM EDT Patient has been identified by name and date of : Yes Requested Prescriptions Pending Prescriptions Disp Refills glimepiride (AMARYL) 4 mg tablet 90 tablet 3 Sig: Take 1 tablet by mouth daily with breakfast. levothyroxine (SYNTHROID) 25 mcg tablet 180 tablet 3 Sig: Take 2 tablets by mouth once daily. Take on empty stomach. For thyroid. primidone (MYSOLINE) 50 mg tablet 90 tablet 1 Sig: Take 1 tablet by mouth daily at bedtime. As directed omeprazole (PRILOSEC) 40 mg capsule 90 capsule 3 Sig: Take 1 capsule by mouth once daily. atorvastatin (LIPITOR) 40 mg tablet 90 tablet 3 Sig: Take 1 tablet by mouth daily at bedtime. For cholesterol. FLUoxetine (PROZAC) 10 mg capsule 90 capsule 3 Sig: Take 1 capsule by mouth once daily. RX INSTRUCTIONS: please send today patient is out of medication and needs sent to his pharmacy [facility] Patient aware RX escripted to mail away pharmacy. No need to notify patient. Cynthia West Pss documented in this encounterMem[facility]07-[facility]22 History of Present illness Narrative* Isabella Yung MD - 03/15/2022 5:06 PM EDT This note was created using Scancellriter. Subjective Enrico Live is a 86 year old male. Patient presents with: F/U 6 months SUBJECTIVE: Enrico Live is a 86 year old year old gentleman here today for 6 month follow up appointment for review of medical conditions. Side pain--was better with pain med and muscle relaxant. Saw chiropractor in [place], Dr Ricardo--was told had slid a quarter inch one way. Doing better with treatments. Ball for exercise. Okay with med for pain. Sleeping better now. Doing well from BP and blood sugar standpoint, PAST MEDICAL HISTORY Diagnosis Date Anxiety state, unspecified Benign neoplasm of colon Dizziness and giddiness Hyperplasia of prostate Other and unspecified hyperlipidemia Otogenic pain Psychosexual dysfunction with inhibited sexual excitement Type II or unspecified type diabetes mellitus without mention of complication, not stated as uncontrolled Unspecified constipation Unspecified otitis media Current Outpatient Medications Medication Sig tiZANidine (ZANAFLEX) 4 mg tablet Take 1 tablet by mouth every 8 hours as needed (muscle spasms). (Patient not taking: Reported on 03/15/2022 ) primidone (MYSOLINE) 50 mg tablet Take 1 tablet by mouth daily at bedtime. As directed polyethylene glycol 3350 (MIRALAX, GLYCOLAX) 17 gram/dose powder Take 17 g by mouth once daily as needed. omeprazole (PRILOSEC) 40 mg capsule Take 1 capsule by mouth once daily. atorvastatin (LIPITOR) 40 mg tablet Take 1 tablet by mouth daily at bedtime. For cholesterol. levothyroxine (SYNTHROID) 25 mcg tablet Take 2 tablets by mouth once daily. Take on empty stomach. For thyroid. glimepiride (AMARYL) 4 mg tablet Take 1 tablet by mouth daily with breakfast. FLUoxetine (PROZAC) 10 mg capsule Take 1 capsule by mouth once daily. flash glucose sensor (FREESTYLE SB 2 SENSOR) kit Check sugars as directed. E11.65 flash glucose scanning reader (FREESTYLE SB 2 READER) Check sugars as directed. E11.65 montelukast (SINGULAIR) 10 mg tablet Take 1 tablet by mouth daily at bedtime. (Patient not taking: Reported on 02/05/2021 ) magnesium oxide 400 mg magnesium cap Take 1 capsule by mouth twice daily. meclizine (ANTIVERT) 25 mg tab Take 0.5-1 tablets by mouth three times daily as needed. (Patient not taking: Reported on 02/05/2021 ) multivitamin tablet Take 1 tablet by mouth once daily. omega 6-vut-far-fish oil 183.3 mg-75 mg -91.6 mg-306 mg cap Take 1 capsule by mouth once daily. calcium carbonate (CALCIUM 600) 600 mg calcium (1,500 mg) tab Take 0.75 tablets by mouth once daily. Milk Thistle 150 mg cap Take 1 capsule by mouth once daily. ubidecarenone Q-10 (CO Q-10) 10 mg cap Take 1 capsule by mouth once daily. aspirin, enteric coated (ASPIRIN, ENTERIC COATED) 81 mg EC tablet Take 1 tablet by mouth once daily. Cholecalciferol, Vitamin D3, 2,000 unit cap Take 1 capsule by mouth once daily. blood sugar diagnostic (PatsnapTOUCH VERIO) test strip Test blood sugar(s) 2 times daily. Dx: Type 2 DM- Uncontrolled E11.65 Insulin: No Lancets lancets Test blood sugar(s) 2 times daily. Dx: Type 2 DM - Uncontrolled E11.65 Insulin: No No current facility-administered medications for this visit. Review of Systems Objective BP 122/68 Pulse 67 Wt 80.3 kg (177 lb) SpO2 97% BMI 28.14 kg/m Physical Exam Vitals reviewed. Constitutional: Appearance: Normal appearance. Eyes: Conjunctiva/sclera: Conjunctivae normal. Cardiovascular: Rate and Rhythm: Normal rate and regular rhythm. Heart sounds: Normal heart sounds. Pulmonary: Effort: Pulmonary effort is normal. Breath sounds: Normal breath sounds. Skin: General: Skin is warm and dry. Neurological: General: No focal deficit present. Mental Status: He is alert and oriented to person, place, and time. Psychiatric: Mood and Affect: Mood normal. Behavior: Behavior normal. Thought Content: Thought content normal. Judgment: Judgment normal. Hemoglobin A1C (%) Date Value 03/13/2022 8.5 08/17/2021 8.4 01/30/2021 7.9 06/26/2020 8.3 06/14/2019 7.5 Assessment and Plan ASSESSMENT/PLAN: 1. Type 2 diabetes mellitus without complication, without long-term current use of insulin ([facility]) - ICD9: 250.00, ICD10: E11.9 (primary diagnosis) Controlled in 8.7 range--good for his age [age] years old. No problems with frequent low sugars - Continue current medications - Encouraged regular aerobic exercise and weight loss - HGB A1C - COMP METABOLIC PANEL 2. Hyperlipidemia, unspecified hyperlipidemia type - ICD9: 272.4, ICD10: E78.5 - to be determined upon return of lab results - Continue current medication. - Encouraged following a low fat, low cholesterol diet. - Encouraged following a low carbohydrate, healthy oil intake diet. - LIPID PANEL BASIC 3. Vitamin D deficiency - ICD9: 268.9, ICD10: E55.9 Adjust as indicated 4. Acquired hypothyroidism - ICD9: 244.9, ICD10: E03.9 - Instructed patient on importance of taking on an empty stomach either first thing in the morning or at bedtime. Weight decreasing - Behavioral intervention - TSH BLD - T4 FREE/FREE THYROX 5. Encounter for long-term current use of medication - ICD9: V58.69, ICD10: Z79.899 - COMP METABOLIC PANEL 6. DDD (degenerative disc disease), lumbar - ICD9: 722.52, ICD10: M51.36 Improved with treatment by chiropractor. Continue present management. Isabella Yung MD documented in this encounterMem[facility]06-02-[facility]22 Miscellaneous Notes* Telephone Encounter - Marilee Garvin LPN - 02/14/2022 4:37 PM EDT Called and all reviewed. She notes the muscle relaxant has been helpful. She will review with pt. * Telephone Encounter - Marilee Garvin LPN - 02/14/2022 4:33 PM EDT My chart message to pt. * Telephone Encounter - Isabella Yung MD - 02/14/2022 4:11 PM EDT No acute fracture or signs of destructive lesions. Mild scoliosis of spine noted--slight to the right in thoracic spine and to the left lumbar spine Degenerative disc disease at multiple levels of thoracolumbar spine, Osteophytes noted--bone spurs. Most pronounced at L1-2 and L5-S1 (top and bottom of lumbar spine). See if muscle relaxer helped at all. If pain still severe, can refer to spine center provider. Also, make sure they now the ultrasounds were fine--cannot tell if they got results. No signs of kidney stones or gallbladder problems. Fatty liver noted. What could be seen of the pancreas was within normal limits * Telephone Encounter - Keturah Castro LPN - 02/14/2022 11:23 AM EDT Pt's calling requesting results of xray done 02/08/22. Please call back with results. Keturah Castro LPN documented in this encounterMem[facility]05-24-2022 History of Present illness Narrative* Jaimee Mccall RDMS - 02/05/2022 2:45 PM EDT Radiology Service Progress Note PATIENT NAME: Enrico Live DATE OF SERVICE: February 05, 2022 TIME: 3:20 PM PATIENT IDENTITY VERIFICATION COMPLETED USING TWO (2) IDENTIFIERS: Name and Date of confirmedby patient verbally. FALL SCREENING: Has the patient had 2 falls in the last year or 1 fall with injury or currently using an Ambulatory Assistive Device (Walker, Cane, Wheelchair, Crutches, etc.)? No PATIENT GENDER DATA: Male PATIENT RELEVANT IMPLANT DATA REVIEWED: Not Applicable RADIOLOGY DEPARTMENT: Ultrasound PERIPHERAL IV DATA: Not applicable SIGNED BY: Jaimee Mccall RDMS RVT February 05, 2022 3:20 PM documented in this encounterMem[facility] HospitalEvaluation + Plan note Future Appointments Appointment Date:11/11/2023 04:30:00 PM Scheduled Provider: Location:XRAY Appointment Type:MRI Brain w/ + w/o Contrast Appointment Date:11/17/2023 10:15:00 AM Scheduled Provider:ABRAHAM VU MD Location:[facility]UROS Appointment Type:NS OV Appointment Date:12/30/2023 10:30:00 AM Scheduled Provider: Location:[facility] Appointment Type:CV OV Future Scheduled Tests Radiology* CT Head or Brain w/o Contrast 10/15/23 * MRI Brain w/ + w/o Contrast 11/11/23 [facility] Evaluation note* Diagnosis Acute right flank pain Abdominal pain, unspecified site RUQ abdominal pain Abdominal pain, right upper quadrant Right upper quadrant abdominal tenderness without rebound tenderness Right flank tenderness Abdominal tenderness, unspecified site [facility]* Diagnosis Type 2 diabetes mellitus without complication, without long-term current use of insulin (HCC)- Primary Hyperlipidemia, unspecified hyperlipidemia type Vitamin D deficiency Unspecified vitamin D deficiency Acquired hypothyroidism Unspecified hypothyroidism Encounter for long-term current use of medication DDD (degenerative disc disease), lumbar Degeneration of lumbar or lumbosacral intervertebral disc [facility]* Diagnosis Essential tremor Essential and other specified forms of tremor Gastroesophageal reflux disease without esophagitis Esophageal reflux Hyperlipidemia, unspecified hyperlipidemia type Anxiety and depression Dysthymic disorder [facility] this encounter [facility]* Diagnosis Chronic RLQ pain- Primary Abdominal pain, right lower quadrant Radiculopathy of thoracolumbar region Thoracic or lumbosacral neuritis or radiculitis, unspecified Right flank tenderness Abdominal tenderness, unspecified site [facility]* Diagnosis Chronic RLQ pain Abdominal pain, right lower quadrant RUQ abdominal pain Abdominal pain, right upper quadrant Right flank tenderness Abdominal tenderness, unspecified site Family history of colon cancer Family history of malignant neoplasm of gastrointestinal tract documented [facility] this encounter [facility]* Diagnosis Chronic RLQ pain- Primary Abdominal pain, right lower quadrant RUQ abdominal pain Abdominal pain, right upper quadrant Right flank tenderness Abdominal tenderness, unspecified site [facility]* Diagnosis Chronic RLQ pain- Primary Abdominal pain, right lower quadrant RUQ abdominal pain Abdominal pain, right upper quadrant Right flank tenderness Abdominal tenderness, unspecified site Right lower quadrant abdominal pain Abdominal pain, right lower quadrant Type 2 diabetes mellitus without complication, without long-term current use of insulin (HCC) Acquired hypothyroidism Unspecified hypothyroidism [facility]* Diagnosis Umbilical hernia without obstruction and without gangrene- Primary Right lower quadrant abdominal pain Abdominal pain, right lower quadrant DDD (degenerative disc disease), lumbar Degeneration of lumbar or lumbosacral intervertebral disc Essential tremor Essential and other specified forms of tremor 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 cyst Unspecified congenital cystic kidney disease documented [facility]* Diagnosis Pain of upper abdomen- Primary Abdominal pain, other specified site DDD (degenerative disc disease), lumbar Degeneration of lumbar or lumbosacral intervertebral disc Abdominal wall pain in right lower quadrant Abdominal pain, right lower quadrant Degeneration of lumbar intervertebral disc Degeneration of lumbar or lumbosacral intervertebral disc documented in this encounter [facility] note* Diagnosis Type 2 diabetes mellitus with hyperglycemia, without long-term current use of insulin (HCC)- Primary Essential tremor Essential and other specified forms of tremor Constipation, unspecified constipation type Acquired hypothyroidism Unspecified hypothyroidism Vitamin D deficiency Unspecified vitamin D deficiency Hyperlipidemia, unspecified hyperlipidemia type Encounter for immunization Need for other specified prophylactic vaccination against single bacterial disease documented in this encounter [facility] note* Diagnosis Pain of upper abdomen- Primary Abdominal pain, other specified site documented in this encounter [facility] note* Diagnosis Pain of upper abdomen- Primary Abdominal pain, other specified site documented in this encounter [facility] note* Diagnosis RLQ abdominal pain- Primary Abdominal pain, right lower quadrant Chronic RLQ pain Abdominal pain, right lower quadrant RUQ abdominal pain Abdominal pain, right upper quadrant documented in this encounter [facility] note* Diagnosis Pain of upper abdomen Abdominal pain, other specified site Abdominal wall pain in right lower quadrant Abdominal pain, right lower quadrant Degeneration of lumbar intervertebral disc Degeneration of lumbar or lumbosacral intervertebral disc documented in this encounter [facility] note* Diagnosis Right lower quadrant abdominal pain Abdominal pain, right lower quadrant documented in this encounter [facility] note* Diagnosis Type 2 diabetes mellitus without complication, without long-term current use of insulin ([facility])- Primary Encounter for therapeutic drug monitoring Acquired hypothyroidism Unspecified hypothyroidism Vitamin D deficiency Unspecified vitamin D deficiency Hyperlipidemia, unspecified hyperlipidemia type documented in this encounter [facility] course Narrative No data available for this section [facility] Discharge instructions No data available for this section [facility] Progress note No data available for this section [facility] Reason for referral (narrative)* Diagnostic Procedure Only (Urgent) - Closed Specialty Diagnoses / Procedures Referred By Contac t Referred To Contact US IMAGING Diagnoses Acute right flank pain RUQ abdominal pain Right upper quadrant abdominal tenderness without rebound tenderness Right flank tenderness Procedures US ABD RT UPPER QUADRANT US ABDOMINAL REAL TIME W/IMAGE LIMITED Isabella Yung MD [address] [place] [address] Us Imaging Referral ID Status Reason Start Date Expiration Date V isits Requested Visits Authorized [id number] Closed Auto-Generate d Referral 02/05/2022 03/07/2023 1 1 [facility] for referral (narrative)* Outpatient Procedure (Routine) - Authorized Specialty Diagnoses / Procedures Referred By Contac t Referred To Contact [facility] [place] Diagnoses Chronic RLQ pain RUQ abdominal pain Procedures COLONOSCOPY DIAGNOSTIC COLONOSCOPY FLX DX W/COLLJ SPEC WHEN Cathy Gresham MD [address] [place] [address] [address] Referral ID Status Reason Start Date Expiration Date Visits Requested Visits Authorized [id number] Authorized Auto-Generat ed Referral 2 07/30/2023 1 1 [facility] for referral (narrative)* Outpatient Procedure (Routine) - Closed Specialty Diagnoses / Procedures Referred By Contac t Referred To Contact [facility] Diagnoses Chronic RLQ pain RUQ abdominal pain Procedures COLONOSCOPY DIAGNOSTIC COLONOSCOPY FLX DX W/COLLJ SPEC WHEN Cathy Gresham MD [address] [place] [address] [address] Referral ID Status Reason Start Date Expiration Date V isits Requested Visits Authorized [id number] Closed Auto-Generate d Referral 07/30/2022 07/30/2023 1 1 [facility] for visit Narrative* Outpatient Procedure (Routine) - Closed Specialty Diagnoses / Procedures Referred By Contac t Referred To Contact [facility] Diagnoses Chronic RLQ pain RUQ abdominal pain Procedures COLONOSCOPY DIAGNOSTIC COLONOSCOPY FLX DX W/COLLJ SPEC WHEN Cathy Gresham MD [address] [place] [address] [facility] [place] [address] Referral ID Status Reason Start Date Expiration Date V isits Requested Visits Authorized [id number] Closed Auto-Generate d Referral 07/30/2022 07/30/2023 1 1 [facility] Summary Purpose Family History No Family History Records Found No data available for this section No data available for this section No Family History Records FoundNo Family History Records FoundNo Family History Records Found Advance Directives No Advanced Directives Records FoundNo Advanced Directives Records FoundNo Advanced Directives Records FoundNo Advanced Directives Records Found Reason for Referral Specialty Diagnoses / Procedures Referred By Contac t Referred To Contact Isabella Yung MD [address] [place] [id number] Referral ID Status Reason Start Date Expiration Date V isits Requested Visits Authorized [id number] Authorized 06/04/2022 07/04/2023 1 1 Specialty Diagnoses / Procedures Referred By Contac t Referred To Contact Gastroenterology Diagnoses Chronic RLQ pain RUQ abdominal pain Right flank tenderness Procedures CONSULT TO GASTROENTEROLOGY OFFICE/OUTPATIENT [facility] 60-74 MINUTES Isabella Yung MD [address] [place] [address] Referral ID Status Reason Start Date Expiration Date Visits Requested Visits Authorized [id number] Pending Review PCP Requested Referral 2 07/29/2023 1 1 Specialty Diagnoses / Procedures Referred By Contac t Referred To Contact CT IMAGING Diagnoses Right lower quadrant abdominal pain Procedures CT ABD/PEL W IVCON CT ABD & PELVIS W/CONTRAST Isabella Yung MD [address] [place] [address] Ct Imaging Referral ID Status Reason Start Date Expiration Date Visits Requested Visits Authorized [id number] Pending Review Auto-Generat ed Referral 08/21/2022 09/20/2023 1 1 Specialty Diagnoses / Procedures Referred By Contac t Referred To Contact CT IMAGING Diagnoses Right lower quadrant abdominal pain Adrenal incidentaloma (HCC) Renal cyst Procedures CT ABD/PEL W IVCON CT ABD & PELVIS W/CONTRAST ArrietaClair galarza, [employer]ALING [employer]NA[employer] [address] [place] [address] Ct Imaging Referral ID Status Reason Start Date Expiration Date Visits Requested Visits Authorized [id number] Pending Review Auto-Generat ed Referral 02/28/2023 09/29/2023 1 1 Specialty Diagnoses / Procedures Referred By Contac t Referred To Contact [facility] [place] Diagnoses DDD (degenerative disc disease), lumbar Procedures CONSULT TO [facility] OFFICE/OUTPATIENT [facility] 60-74 MINUTES Clair Arrieta, [employer].ANNEALING FURNACE TENDER [address] [place] [address] Referral ID Status Reason Start Date Expiration Date Visits Requested Visits Authorized [id number] Pending Review PCP Requested Referral 2 08/30/2023 1 1 Specialty Diagnoses / Procedures Referred By Contac t Referred To Contact [facility] Diagnoses Right lower quadrant abdominal pain DDD (degenerative disc disease), lumbar Procedures CONSULT TO PHYSICAL THERAPY PHYSICAL THERAPY EVALUATION HIGH COMPLEX 45 MINS Clair Arrieta, [employer].ANNEALING FURNACE TENDER [address] [place] [address] [facility] [place] [address] [place] [address] Referral ID Status Reason Start Date Expiration Date Visits Requested Visits Authorized [id number] Pending Review Auto-Generat ed Referral 2 08/30/2023 1 1 Specialty Diagnoses / Procedures Referred By Contac t Referred To Contact General Surgery Diagnoses Umbilical hernia without obstruction and without gangrene Procedures CONSULT TO GENERAL SURGERY OFFICE/OUTPATIENT [facility] 60-74 MINUTES [place] Clair, [employer].ANNEALING FURNACE TENDER [address] [place] [address] Referral ID Status Reason Start Date Expiration Date Visits Requested Visits Authorized [id number] Pending Review PCP Requested Referral 2 08/30/2023 1 1 Specialty Diagnoses / Procedures Referred By Contac t Referred To Contact MR IMAGING Diagnoses Pain of upper abdomen Abdominal wall pain in right lower quadrant Degeneration of lumbar intervertebral disc Procedures MRI PELVIS ORTHO GENERAL WO IVCON MRI PELVIS W/[place] [address] [place] [address] Mr Imaging Referral ID Status Reason Start Date Expiration Date Visits Requested Visits Authorized [id number] Authorized Auto-Generat ed Referral 11/08/2022 12/08/2023 1 1 Specialty Diagnoses / Procedures Referred By Contac t Referred To Contact MR IMAGING Diagnoses Pain of upper abdomen Abdominal wall pain in right lower quadrant Degeneration of lumbar intervertebral disc Procedures MRI PELVIS ORTHO GENERAL WO IVCON MRI PELVIS W/[place] [address] [place] [address] [place] [address] Referral ID Status Reason Start Date Expiration Date V isits Requested Visits Authorized [id number] Closed Auto-Generate d Referral 11/08/2022 12/08/2023 1 1 Specialty Diagnoses / Procedures Referred By Contac t Referred To Contact CT IMAGING Diagnoses Right lower quadrant abdominal pain Procedures CT ABD/PEL W IVCON CT ABD & PELVIS W/CONTRAST Isabella Yung MD [address] [place] [address] [place] [address] Referral ID Status Reason Start Date Expiration Date V isits Requested Visits Authorized [id number] Closed Auto-Generate d Referral 08/22/2022 09/14/2022 2 2 Medications Administered Section Inactive Administered Medications - up to 3 most recent administrations Medication Order MAR Action Action Date Dose Rate Site diphenhydrAMINE 12.5-50 mg injection (BENADRYL) 12.5-50 mg, INTRAVENOUS, DIRECTED, Starting on Fri08/12/22 at 1230, Until Fri08/12/22 at 1629, DOSING DIRECTED BY PHYSICIAN FOR PROCEDURAL SEDATION ONLY, Intraprocedure Given 08/12/2022 12:10 PM EST 50 mg fentaNYL 50 mcg/mL 25-100 mcg injection (SUBLIMAZE) 25-100 mcg, INTRAVENOUS, DIRECTED, Starting on Fri08/12/22 at 1230, Until Fri08/12/22 at 1629, DOSING DIRECTED BY PHYSICIAN FOR PROCEDURAL SEDATION ONLY, Intraprocedure Given 08/12/2022 12:17 PM EST 50 mcg Additional Source Comments (unrecognized sect ion and content) No Status Records FoundNo Status Records FoundNo Status Records FoundNo Status Records Found INFORMATION SOURCE (unrecogn ized section and content) DATE CREATED AUTHOR AUTHOR'S ORGANIZ ATION 11/25/2023 [facility] DATE CREATED AUTHOR AUTHOR'S ORGANIZ ATION 11/25/2023 [facility] DATE CREATED AUTHOR AUTHOR'S ORGANIZ ATION 11/27/2023 [facility] ([place]) Source Comments (unrecognize d section and content) In the event this informatio n is protected by the Federal Confidentiality of Alcohol and Drug Abuse Patient Records regulations: The Federal rules restrict any use of the information to criminally investigate or prosecute any alcohol or drug abuse patient.[facility] the event this information is protected by the Federal Confidentiality of Alcohol and Drug Abuse Patient Records regulations: The Federal rules restrict any use of the information to criminally investigate or prosecute any alcohol or drug abuse patient.[facility] the event this information is protected by the Federal Confidentiality of Alcohol and Drug Abuse Patient Records regulations: The Federal rules restrict any use of the information to criminally investigate or prosecute any alcohol or drug abuse patient.[facility] the event this information is protected by the Federal Confidentiality of Alcohol and Drug Abuse Patient Records regulations: The Federal rules restrict any use of the information to criminally investigate or prosecute any alcohol or drug abuse patient.[facility] Hospital[facility] the event this information is protected by the Federal Confidentiality of Alcohol and Drug Abuse Patient Records regulations: The Federal rules restrict any use of the information to criminally investigate or prosecute any alcohol or drug abuse patient.[facility] Hospital[facility] the event this information is protected by the Federal Confidentiality of Alcohol and Drug Abuse Patient Records regulations: The Federal rules restrict any use of the information to criminally investigate or prosecute any alcohol or drug abuse patient.[facility] Hospital[facility] the event this information is protected by the Federal Confidentiality of Alcohol and Drug Abuse Patient Records regulations: The Federal rules restrict any use of the information to criminally investigate or prosecute any alcohol or drug abuse patient.[facility] HospitalIn the event this information is protected by the Federal Confidentiality of Alcohol and Drug Abuse Patient Records regulations: The Federal rules restrict any use of the information to criminally investigate or prosecute any alcohol or drug abuse patient.[facility] HospitalIn the event this information is protected by the Federal Confidentiality of Alcohol and Drug Abuse Patient Records regulations: The Federal rules restrict any use of the information to criminally investigate or prosecute any alcohol or drug abuse patient.[facility] Hospital[facility] the event this information is protected by the Federal Confidentiality of Alcohol and Drug Abuse Patient Records regulations: The Federal rules restrict any use of the information to criminally investigate or prosecute any alcohol or drug abuse patient.[facility] HospitalIn the event this information is protected by the Federal Confidentiality of Alcohol and Drug Abuse Patient Records regulations: The Federal rules restrict any use of the information to criminally investigate or prosecute any alcohol or drug abuse patient.[facility] Hospital[facility] the event this information is protected by the Federal Confidentiality of Alcohol and Drug Abuse Patient Records regulations: The Federal rules restrict any use of the information to criminally investigate or prosecute any alcohol or drug abuse patient.[facility] HospitalIn the event this information is protected by the Federal Confidentiality of Alcohol and Drug Abuse Patient Records regulations: The Federal rules restrict any use of the information to criminally investigate or prosecute any alcohol or drug abuse patient.[facility] HospitalIn the event this information is protected by the Federal Confidentiality of Alcohol and Drug Abuse Patient Records regulations: The Federal rules restrict any use of the information to criminally investigate or prosecute any alcohol or drug abuse patient.[facility] HospitalIn the event this information is protected by the Federal Confidentiality of Alcohol and Drug Abuse Patient Records regulations: The Federal rules restrict any use of the information to criminally investigate or prosecute any alcohol or drug abuse patient.[facility] the event this information is protected by the Federal Confidentiality of Alcohol and Drug Abuse Patient Records regulations: The Federal rules restrict any use of the information to criminally investigate or prosecute any alcohol or drug abuse patient.[facility] HospitalIn the event this information is protected by the Federal Confidentiality of Alcohol and Drug Abuse Patient Records regulations: The Federal rules restrict any use of the information to criminally investigate or prosecute any alcohol or drug abuse patient.[facility] HospitalIn the event this information is protected by the Federal Confidentiality of Alcohol and Drug Abuse Patient Records regulations: The Federal rules restrict any use of the information to criminally investigate or prosecute any alcohol or drug abuse patient.[facility] HospitalIn the event this information is protected by the Federal Confidentiality of Alcohol and Drug Abuse Patient Records regulations: The Federal rules restrict any use of the information to criminally investigate or prosecute any alcohol or drug abuse patient.[facility] HospitalIn the event this information is protected by the Federal Confidentiality of Alcohol and Drug Abuse Patient Records regulations: The Federal rules restrict any use of the information to criminally investigate or prosecute any alcohol or drug abuse patient.[facility] HospitalIn the event this information is protected by the Federal Confidentiality of Alcohol and Drug Abuse Patient Records regulations: The Federal rules restrict any use of the information to criminally investigate or prosecute any alcohol or drug abuse patient.[facility] HospitalIn the event this information is protected by the Federal Confidentiality of Alcohol and Drug Abuse Patient Records regulations: The Federal rules restrict any use of the information to criminally investigate or prosecute any alcohol or drug abuse patient.[facility] HospitalIn the event this information is protected by the Federal Confidentiality of Alcohol and Drug Abuse Patient Records regulations: The Federal rules restrict any use of the information to criminally investigate or prosecute any alcohol or drug abuse patient.[facility] HospitalIn the event this information is protected by the Federal Confidentiality of Alcohol and Drug Abuse Patient Records regulations: The Federal rules restrict any use of the information to criminally investigate or prosecute any alcohol or drug abuse patient.[facility] HospitalIn the event this information is protected by the Federal Confidentiality of Alcohol and Drug Abuse Patient Records regulations: The Federal rules restrict any use of the information to criminally investigate or prosecute any alcohol or drug abuse patient.[facility] HospitalIn the event this information is protected by the Federal Confidentiality of Alcohol and Drug Abuse Patient Records regulations: The Federal rules restrict any use of the information to criminally investigate or prosecute any alcohol or drug abuse patient.[facility] HospitalIn the event this information is protected by the Federal Confidentiality of Alcohol and Drug Abuse Patient Records regulations: The Federal rules restrict any use of the information to criminally investigate or prosecute any alcohol or drug abuse patient.[facility] HospitalIn the event this information is protected by the Federal Confidentiality of Alcohol and Drug Abuse Patient Records regulations: The Federal rules restrict any use of the information to criminally investigate or prosecute any alcohol or drug abuse patient.[facility] HospitalIn the event this information is protected by the Federal Confidentiality of Alcohol and Drug Abuse Patient Records regulations: The Federal rules restrict any use of the information to criminally investigate or prosecute any alcohol or drug abuse patient.[facility] Reason for Visit (unrecogniz ed section and content) Specialty Diagnoses / Procedures Referred By Mariano t Referred To Contact CT IMAGING Diagnoses Right lower quadrant abdominal pain Procedures CT ABD/PEL W IVCON CT ABD & PELVIS W/CONTRAST Isabella Yung MD [address] [place] [address] [place] [address] Referral ID Status Reason Start Date Expiration Date V isits Requested Visits Authorized [id number] Closed Auto-Generate d Referral 08/22/2022 09/14/2022 2 2 Reason Comments Radiology US Specialty Diagnoses / Procedures Referred By Contac t Referred To Contact US IMAGING Diagnoses Acute right flank pain RUQ abdominal pain Right upper quadrant abdominal tenderness without rebound tenderness Right flank tenderness Procedures US ABD RT UPPER QUADRANT US ABDOMINAL REAL TIME W/IMAGE LIMITED Isabella Yung MD [address] [place] [address] Us Imaging Referral ID Status Reason Start Date Expiration Date V isits Requested Visits Authorized [id number] Closed Auto-Generate d Referral 02/05/2022 03/07/2023 1 1 Reason Comments Results (radiology) Reason Comments F/U 6 months Reason Onset Date Comments Refill Request 05/17/2022 Reason Comments Patient Update Reason Comments Lidocaine PA Reason Comments high sugar reading Reason Comments Follow Up Reason Comments Consult consult Specialty Diagnoses / Procedures Referred By Contac t Referred To Contact Gastroenterology Diagnoses Chronic RLQ pain RUQ abdominal pain Right flank tenderness Procedures CONSULT TO GASTROENTEROLOGY OFFICE/OUTPATIENT NEW HIGH MDM 60-74 MINUTES Isabella Yung MD [address] [place] [address] Referral ID Status Reason Start Date Expiration Date Visits Requested Visits Authorized [id number] Pending Review PCP Requested Referral 2 07/29/2023 1 1 Reason Comments referral to gastroenterology Reason Comments RLQ pain continues Reason Comments Follow Up Reason Comments New Patient Patient states he is having right abd pain x 1 week Specialty Diagnoses / Procedures Referred By Contac t Referred To Contact [facility] Diagnoses DDD (degenerative disc disease), lumbar Procedures CONSULT TO [facility] OFFICE/OUTPATIENT NEW HIGH MDM 60-74 MINUTES Clair Arrieta APRN.[employer] [address] [place] [address] Referral ID Status Reason Start Date Expiration Date Visits Requested Visits Authorized [id number] Pending Review PCP Requested Referral 2 08/30/2023 1 1 Reason Comments [facility] - faxing form Reason Comments Refill Request Reason Comments Patient Question Reason Comments Follow Up Results - Mri Specialty Diagnoses / Procedures Referred By Mariano penny Referred To Contact MR IMAGING Diagnoses Pain of upper abdomen Abdominal wall pain in right lower quadrant Degeneration of lumbar intervertebral disc Procedures MRI PELVIS ORTHO GENERAL WO IVCON MRI PELVIS W/[place] [address] [place] [id number] [place] [address] Referral ID Status Reason Start Date Expiration Date V isits Requested Visits Authorized [id number] Closed Auto-Generate d Referral 11/08/2022 12/08/2023 1 1 Reason Comments Orders Care Teams (unrecognized sec tion and content) Supervisor [employer] Relationship Specialty Start Date End Date Isabella Yung MD [address] [place] [id number] PCP - General Internal Medicine 03/19/19 Supervisor [employer] Relationship Specialty Start Date End Date Isabella Yung MD [address] [place] [id number] PCP - General Internal Medicine 03/19/19 Supervisor [employer] Relationship Specialty Start Date End Date Isabella Yung MD [address] [place] [id number] PCP - General Internal Medicine 03/19/19 Supervisor [employer] Relationship Specialty Start Date End Date Isabella Yung MD [address] [place] [address] PCP - General Internal Medicine 03/19/19 Supervisor Metal [employer] Relationship Specialty Start Date End Date Isabella Yung MD [address] [place] [id number] PCP - General Internal Medicine 03/19/19 Supervisor Metal [employer]acing Relationship Specialty Start Date End Date Isabella Yung MD [address] [place] [address] PCP - General Internal Medicine 03/19/19 Supervisor Metal Placing Relationship Specialty Start Date End Date Isabella Yung MD [facility] [place] [address] PCP - General Internal Medicine 03/19/19 Supervisor Metal Placing Relationship Specialty Start Date End Date Isabella Yung MD [address] [place] [address], [place] [address] PCP - General Internal Medicine 03/19/19 Supervisor Metal Placing Relationship Specialty Start Date End Date Isabella Yung MD [address] [place] [address], [place] [address] PCP - General Internal Medicine 03/19/19 Supervisor Metal Placing Relationship Specialty Start Date End Date Isabella Yung MD [address] [place] [address], [place] [address] PCP - General Internal Medicine 03/19/19 Supervisor Metal Placing Relationship Specialty Start Date End Date Isabella Yung MD [address] [place] [address], [place] [address] PCP - General Internal Medicine 03/19/19 Supervisor Metal Placing Relationship Specialty Start Date End Date Isabella Yung MD [address] [place] [address], [place] [address] PCP - General Internal Medicine 03/19/19 Supervisor Metal Placing Relationship Specialty Start Date End Date Isabella Yung MD [address] [place] [address], [place] [address] PCP - General Internal Medicine 03/19/19 Supervisor Metal Placing Relationship Specialty Start Date End Date Isabella Yung MD [address] [place] [address], [place] [address] PCP - General Internal Medicine 03/19/19 Supervisor Metal Placing Relationship Specialty Start Date End Date Isabella Yung MD [address] [place] [address], [place] [address] PCP - General Internal Medicine 03/19/19 Supervisor Metal Placing Relationship Specialty Start Date End Date Isabella Yung MD [address] [place] [address] PCP - General Internal Medicine 03/19/19 01/28/23 Supervisor Metal Placing Relationship Specialty Start Date End Date Isabella Yung MD [address] [place] [address] PCP - General Internal Medicine 03/19/19 01/28/23 Supervisor Metal Placing Relationship Specialty Start Date End Date Isabella Yung MD [address] [place] [address] PCP - General Internal Medicine 03/19/19 01/28/23 Supervisor Metal Placing Relationship Specialty Start Date End Date Isabella Yung MD [address] [place] [address] PCP - General Internal Medicine 03/19/19 01/28/23 Supervisor Metal Placing Relationship Specialty Start Date End Date Isabella Yung MD [address] [place] [address] PCP - General Internal Medicine 11/07/23 FOR RECORDS PERTAINING TO PATIENTS WHO ARE OR HAVE BEEN ENROLLED IN A CHEMICAL DEPENDENCY/SUBSTANCEABUSE PROGRAM, SOME INFORMATION MAY BE OMITTED. This clinical summary was aggregated from multiple sources. Caution should be exercised in using it in the provision of clinical care. This summary normalizes information from multiple sources, and as a consequence, information in this document may materially change the coding, format and clinical context of patient data. In addition, data may be omitted in some cases. CLINICAL DECISIONS SHOULD BE BASED ON THE PRIMARY CLINICAL RECORDS. [employer] [facility]. provides no warranty or guarantee of the accuracy or completeness of information in this document.
--- NOTE | 2023-11-27 23:50 | NURSING ---
pts personal alarm went off, staff responded immediately, and patient was observed to be on the floor. When asked what happened patient stated I just rolled over onto the floor. When asked if he hit his head, patient stated No, I didn't hit my head. patients vitals noted to be stable per baseline. Pt alert and oriented x2 per baseline, to self and time, when asked where he is patient states [facility] (Pt had been transferred earlier today from [facility]). Pt denies any new or increased pain. pt has small skin tear to left elbow, first aid applied. No other new injuries noted at this time. staff x4 assisted patient back into bed. Pt brought out to nursing station due to impulsiveness of getting out of bed without assistance. At the time of the fall, patients personal alarm was on, room camera on, call light with reach, and night light in room was on. notified, to be notified in am by this nurse.
[2023-11-28 00:48] LABS: Bedside Glucose 214 mg/dL (74-106)
--- NOTE | 2023-11-28 06:00 | NURSING ---
updated patients Inna on patients recent fall
[2023-11-28 06:50] LABS: Bedside Glucose 188 mg/dL (74-106)
[2023-11-28] MEDS: Acetaminophen 500 MG Tablet 1000 MG PO ×3 (07:27→22:18)
[2023-11-28] MEDS: Levothyroxine 88 MCG Tablet PO (07:27)
[2023-11-28] MEDS: traMADol 50 MG Tablet PO ×2 (07:28→15:03)
--- NOTE | 2023-11-28 07:55 | PHA.CONS_ITS ---
Documented by User: Kody Quintana 11/28/23 08:17 TCU RX Drug Regimen Review Subjective/Objective Subjective/Objective: Subjective: TCU admission note. 87 year old male with below past medical history hospitalized for acute right posterior circulation stroke, complicated by left hip contusion, cervical spinal stenosis, admitted to TCU with debility, here for rehabilitation, strengthening, prior to discharge home with . Objective: Allergies Penicillins Allergy (Verified 07/26/22 09:37) hypotension Current Medications Generic Name Dose Route Start Last Admin Trade Name Freq PRN Reason Stop Dose Admin Acetaminophen 1,000 mg 11/27/23 22:00 11/28/23 07:27 Acetaminophen 500 Mg Tablet PO 1,000 mg Q8 YULIANA Administration Apixaban 5 mg 11/27/23 22:00 11/27/23 21:13 Apixaban 5 Mg Tablet PO 5 mg BID YULIANA Administration Atorvastatin Calcium 40 mg 11/27/23 22:00 11/27/23 21:13 Atorvastatin Calcium 40 Mg Tablet PO 40 mg QHS YULIANA Administration Galantamine Hydrobromide 4 mg 11/28/23 10:00 Galantamine Hydrobromide 4 Mg Tablet PO BID YULIANA Glimepiride 4 mg 11/27/23 22:00 11/27/23 21:13 Glimepiride 4 Mg Tablet PO 4 mg BID YULIANA Administration Levetiracetam 500 mg 11/27/23 22:00 11/27/23 21:13 Levetiracetam 500 Mg Tablet PO 500 mg Q12 YULIANA Administration Levothyroxine Sodium 88 mcg 11/28/23 06:00 11/28/23 07:27 Levothyroxine 88 Mcg Tablet PO 88 mcg DAILY@0600 YULIANA Administration Lidocaine 1 patch 11/28/23 10:00 Lidocaine 5% Patch TOPICAL Q24 YULIANA Magnesium Chloride 128 mg 11/27/23 22:00 11/27/23 21:12 Magnesium Chloride 64 Mg Delay Rel.Tablet PO 128 mg BID YULIANA Administration Magnesium Citrate 300 ml 11/27/23 22:08 Magnesium Citrate 300 Ml PO DAILY PRN Constipation Memantine 10 mg 11/27/23 22:00 11/27/23 21:13 Memantine Hydrochloride 10 Mg Tablet PO 10 mg BID YULIANA Administration Oxycodone HCl 2.5 mg 11/27/23 17:50 Oxycodone 5 Mg Tablet PO Q4H PRN PRN Pain Score 6-10 Pantoprazole Sodium 40 mg 11/27/23 22:00 11/27/23 21:13 Pantoprazole Sodium 40 Mg Tablet PO 40 mg QHS YULIANA Administration Primidone 100 mg 11/27/23 22:00 11/27/23 21:14 Primidone 50 Mg Tablet PO 100 mg QHS YULIANA Administration Senna/Docusate Sodium 1 tablet 11/28/23 10:00 Senna/Docusate Sodium 1 Tablet PO BID YULIANA Tramadol HCl 50 mg 11/27/23 17:50 11/28/23 07:28 Tramadol 50 Mg Tablet PO 50 mg Q6H PRN PRN Administration Pain Score 1-5 Tuberculin PPD 0.1 ml 12/05/23 10:00 Tuberculin,Purif.Prot.Deriv. 50 Tu/Ml Vial ID 12/05/23 10:01 X1 ONE Tuberculin PPD 0.1 ml 11/28/23 10:00 Tuberculin,Purif.Prot.Deriv. 50 Tu/Ml Vial ID 11/28/23 10:01 X1 ONE Venlafaxine HCl 75 mg 11/28/23 10:00 Venlafaxine Hcl 75 Mg Tablet PO DAILY COUNTS INCLUDE 234 BEDS AT THE [facility] Problem List (Updated 11/27/23 @ 21:[address] 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 Pain: acetaminophen 1000 mg PO Q8H, tramadol 50 mg PO Q6H PRN pain (1-5), oxycodone 2.5 mg PO Q4H PRN pain (6-10), lidocaine patch daily. The patient has used 2 PRN doses of tramadol, and 0 doses of oxycodone so far this admission. Please continue to monitor pain levels, PRN medication usage, LFTs (AST/ALT = 14/7 U/L on 07/25/23), for constipation, drowsiness/dizziness, respiratory depression, and syncope/ataxia falls. 2. Bowel: senna/docusate 1 tablet PO BID, magnesium citrate 300 mL PO daily PRN constipation. The patient has not required any PRN doses of magnesium citrate so far this admission, and the patient does not have a documented bowel movement so far this admission. Please continue to monitor for bowel movements, PRN medication usage, constipation and diarrhea. 3. Atrial flutter: Apixaban 5 mg PO BID. Please continue to monitor for s/s of atrial fibrillation such as palpitations, for s/s of bleeding/excessive bruising, serum creatinine (serum creatinine = 0.92 mg/dL on 07/25/23), hemoglobin levels (Hgb = 13.5 g/dL on 07/25/23), and platelet count (plt = 245 K/mm3 on 07/25/23). 4.Hyperlipidemia: atorvastatin 40 mg PO QHS. Please continue to monitor lipid levels (no recent lipid levels documented), LFTs (AST/ALT = 14/7 U/L on 07/25/23) and for myalgias. Please consider ordering lipid levels to assess patient's status if clinically indicated. 5. Diabetes Mellitus II: glimepiride 4 mg PO BID. Please continue to monitor for s/s of hypo/hyperglycemia, blood glucose levels (recent POC ranges = 188-245 mg/dL), hemoglobin A1C levels (A1C = 6.8% on 06/04/16), as well as renal function (serum creatinine = 0.92 mg/dL with creatinine clearance ~ 73 mL/min on 07/25/23). The patient's blood glucose levels have been elevated recently. Please consider adding metformin 500 mg PO BID with meals as the patient does not appear to have any contraindications to metformin and due to his age he may not be receiving significant benefit from glimepiride. 6. Hypothyroidism: levothyroxine 88 mcg PO daily. Please continue to monitor thyroid hormone levels (TSH = 3.38 uIU/mL on 07/25/23) as well as for s/s of hypo/hyperthyroidism. 7. GERD: pantoprazole 40 mg PO QHS. Please continue to monitor for s/s of GERD, for diarrhea that could indicate clostridium difficile infection and for s/s of bone resorption issues such as fractures. 7. Alzheimer disease: galantamine 4 mg PO BID, memantine 10 mg PO BID. Please continue to monitor for nausea, vomiting, diarrhea, dizziness, headaches, confusion, ataxia, agitation, hallucinations, and constipation. 8. Tremor: primidone 100 mg PO QHS. Please continue to monitor for tremors, drowsiness, ataxia, behavioral changes, and nausea. 9. Seizure prophylaxis: levetiracetam 500 mg PO BID. Please continue to monitor for s/s of seizures, renal function (serum creatinine = 0.92 mg/dL with creatinine clearance ~ 73 mL/min on 07/25/23), and for agitation. 10. Hypomagnesemia: magnesium chloride 128 mg PO BID. Please continue to monitor magnesium levels (no recent magnesium levels documented), and for s/s of hypomagnesemia. Assessment/Plan for indications treated with psychotropic medications: 1. Depression: venlafaxine 75 mg PO daily. 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 Please continue to monitor for depression, for SI, for s/s of serotonin syndrome, LFTs (AST/ALT = 14/7 U/L on 07/25/23), sodium levels (Na = 137 mmol/L on 07/25/23), diaphoresis, nausea, dry mouth, drowsiness/dizziness and insomnia. Medical chart and medication regimen reviewed. The following medication irregularities or issues were identified: 1.Hyperlipidemia: atorvastatin 40 mg PO QHS. Please consider ordering lipid levels to assess patient's status if clinically indicated. 2. Diabetes Mellitus II: glimepiride 4 mg PO BID. The patient's blood glucose levels have been elevated recently. Please consider adding metformin 500 mg PO BID with meals as the patient does not appear to have any contraindications to metformin and due to his age he may not be receiving significant benefit from glimepiride. Date Date of Note:: 11/28/23 Documented by User: Dr. Elliott Singh MD 11/28/23 08:20 TCU RX Drug Regimen Review Provider Comments Provider responsibility Provider Comments to Recommendations by Pharmacy: Agree
[2023-11-28 08:33] LABS: Absolute Lymphocyte Count 1.18 X10^3/uL (0.83-4.51); Absolute Neutrophil Count 5.3 X10^3/uL (2.0-7.7); Basophil# 0.01 X10^3/uL; Basophil% 0.1 % (0-1); Eosinophil# 0.15 X10^3/uL; Hematocrit 36.7 % (40-54); Hemoglobin 12.2 g/dL (13.0-16.5); Lymphocyte # 1.18 X10^3/ul (0.83-4.51); Lymphocyte % 16.1 % (19-41); Mean Corp Hgb Conc 33.2 g/dL (32-36); Mean Corpuscular Hgb 31.2 pg (27.0-32.0); Mean Corpuscular Volume 93.9 fL (80-94); Mean Platelet Vol. 9.7 fl (6.2-12.0); Monocyte# 0.64 X10^3/uL; Monocyte% 8.7 % (0-10); NRBC Flagged by Analyzer 0 % (0-5); Neutrophil # 5.34 X10^3/uL (2.7-7.7); Neutrophil % 72.7 % (47-70); Platelet Count 314 K/mm3 (150-450); RBC Distribution Width CV 13.1 % (11.6-14.6); RBC Distribution Width SD 44.7 fl (35.1-43.9); Red Blood Count 3.91 M/mm3 (4.6-6.2); White Blood Count 7.4 K/mm3 (4.4-11.0)
[2023-11-28 08:47] LABS: Anion Gap 6 (5-15); BUN 10 mg/dL (7-18); BUN/Creat Ratio 10.2 RATIO (10-20); Calcium,Total 9.2 mg/dL (8.5-10.1); Chloride 100 mmol/L (98-107); Creatinine, Serum 0.98 mg/dL (0.70-1.30); EST Glomerular Filtration Rate 76 mL/min (>60); Est Glom Filt Rate - Afr Amer 92 mL/min (>60); Estimated Creatinine Clearance 52.08 ml/min; Glucose 246 mg/dL (74-106); Potassium 4.2 mmol/L (3.5-5.1); Sodium Level 133 mmol/L (136-145)
[2023-11-28] MEDS: Lidocaine 5% Patch 1 PATCH TOPICAL (09:23)
[2023-11-28] MEDS: levETIRAcetam 500 MG Tablet PO ×2 (09:23→22:16)
[2023-11-28] MEDS: Glimepiride 4 MG Tablet PO ×2 (09:23→22:17)
[2023-11-28] MEDS: APIXABAN 5 MG TABLET PO ×2 (09:23→22:17)
[2023-11-28] MEDS: Galantamine Hydrobromide 4 MG Tablet PO ×2 (09:24→22:22)
[2023-11-28] MEDS: Magnesium Chloride 64 MG Delay Rel.Tablet 128 MG PO ×2 (09:24→22:18)
[2023-11-28] MEDS: Senna/Docusate Sodium 1 Tablet PO ×2 (09:24→22:19)
[2023-11-28] MEDS: Memantine Hydrochloride 10 MG Tablet PO ×2 (09:24→22:22)
[2023-11-28] MEDS: Venlafaxine HCl 75 MG Tablet PO (09:25)
[2023-11-28] MEDS: Tuberculin,Purif.prot.deriv. 50 TU/ML Vial 0.100000000000000006 ML ID (10:42)
--- NOTE | 2023-11-28 11:10 | CASEMGMT ---
Social Work Pt unable to complete initial assessment. SW phoned to receive information. Introduced self and role. Care Home through the phone call, had to take another call. SW met with in pt's room later in the day to finish assessment. SW educated to [facility] insurance with NRD 11/30 and continued stay is not guaranteed with each review. See SW assessment for PLOF and barriers to DC. SW requested provide copies of advanced directives. agreed. SW will continue to follow for DC planning. CATHY BlakeW
--- NOTE | 2023-11-28 13:09 | NURSING ---
Itchy red rash noted on upper back, Dr. Singh notified.
--- NOTE | 2023-11-28 13:35 | RAD_ITS ---
STUDY: X-RAY - PELVIS AND LEFT HIP REASON FOR EXAM: Male, 87 years old. Fall. Pain. TECHNIQUE: 3 views of the pelvis and hip. COMPARISON: None. FINDINGS: There is a non-specific bowel gas pattern. Normal visualized soft tissue structures. Osteopenia. Normal bilateral iliac wings, sacroiliac joints and visualized sacrum. Normal bilateral superior and inferior pubic rami. Normal pubic symphysis. Normal bilateral ischial tuberosities. Normal visualized femoral head. Normal acetabulum. Normal hip joint. RAD/HIP, UNI W/ Pelvis 2-3 Views IMPRESSION: Osteopenia. No acute osseous abnormality. Electronically Signed: Jose Raul Kelly MD at 14:38 EDT ,
--- NOTE | 2023-11-28 13:35 | RAD_ITS ---
STUDY: X-RAY - LEFT ELBOW REASON FOR EXAM: Male, 87 years old. Fall. Pain. TECHNIQUE: Frontal and oblique views of the left elbow were obtained on 2 images. COMPARISON: None. FINDINGS: Osteopenia. Normal visualized humerus, radius and ulna. Normal radiocapitellar and ulnotrochlear articulations. Minimal focal soft tissue swelling over the olecranon fossa. RAD/Elbow 2 Views IMPRESSION: Osteopenia with soft tissue swelling. No true lateral view performed. Electronically Signed: Jose Raul Kelly MD at 14:25 EDT ,
--- NOTE | 2023-11-28 14:41 | CHAPLAIN ---
Type of Pastoral Visit _x__ Initial Visit ___ Follow-up Visit ___ On-call Visit ___ General Patient Visit ___ Spiritual Assessment ___ Family Conference ___ Bereavement ___ Rapid Response ___ Code Blue ___ Other (describe below) Pastoral Care Referral From ___ Patient _x__ Family ___ Nurse ___ Physician ___ Form Maker Plaster ___ Associate Professor Of Chemistry ___ Other (describe below) Sacrament/Intervention _x__ Active listening ___ Anointing ___ Religious ___ Bereavement ___ Communion ___ Luna exploration ___ ___ Life review ___ Prayer ___ Reconciliation ___ Sacrament of Sick _x__ Supportive presence ___ Wedding ___ Other (describe below) Pastoral Comments patient is out of the room for testing at this time but several family members are there including his ; all are welcoming and all are offered support during this time; describes the situation of patient and has had concerns due to his inability to sleep at nights of which he has disturbances; family is open to future visits of this core oven tender and prayer support;
[2023-11-28] MEDS: Hydrocortisone 2.5% Crm 1 APPLIC TOPICAL (15:04)
[2023-11-28 16:00] VITALS: BP 121/73; PULSE 68; RESP 18; TEMP 36.7; O2SAT 100
[2023-11-28 22:06] LABS: Bedside Glucose 248 mg/dL (74-106)
[2023-11-28] MEDS: Primidone 50 MG Tablet 100 MG PO (22:21)
[2023-11-28] MEDS: Pantoprazole Sodium 40 MG Tablet PO (22:22)
[2023-11-28] MEDS: Atorvastatin Calcium 40 MG Tablet PO (22:23)
[2023-11-29] MEDS: traMADol 50 MG Tablet PO (01:49)
[2023-11-29 02:47] LABS: Cholesterol 141 mg/dL (200); High Density Lipoprotein 42 mg/dL; Triglycerides 134 mg/dL; Very Low Density Lipoprotein 27 mg/dL (5-40)
[2023-11-29] MEDS: oxyCODONE 5 MG Tablet 2.5 MG PO ×2 (03:38→10:13)
[2023-11-29] MEDS: Levothyroxine 88 MCG Tablet PO (05:07)
[2023-11-29] MEDS: Acetaminophen 500 MG Tablet 1000 MG PO ×3 (05:07→20:18)
[2023-11-29 06:35] LABS: Bedside Glucose 248 mg/dL (74-106)
[2023-11-29 10:00] VITALS: BP 123/72; PULSE 65; RESP 18; TEMP 36.3; O2SAT 91
[2023-11-29] MEDS: Glimepiride 4 MG Tablet PO ×2 (10:08→20:25)
[2023-11-29] MEDS: Lidocaine 5% Patch 1 PATCH TOPICAL (10:08)
[2023-11-29] MEDS: levETIRAcetam 500 MG Tablet PO ×2 (10:08→20:18)
[2023-11-29] MEDS: APIXABAN 5 MG TABLET PO ×2 (10:08→20:18)
[2023-11-29] MEDS: Magnesium Chloride 64 MG Delay Rel.Tablet 128 MG PO ×2 (10:08→20:18)
[2023-11-29] MEDS: Memantine Hydrochloride 10 MG Tablet PO ×2 (10:08→20:22)
[2023-11-29] MEDS: Senna/Docusate Sodium 1 Tablet PO ×2 (10:08→20:18)
[2023-11-29] MEDS: Venlafaxine HCl 75 MG Tablet PO (10:09)
[2023-11-29] MEDS: Galantamine Hydrobromide 4 MG Tablet PO ×2 (10:13→20:20)
[2023-11-29] MEDS: Hydrocortisone 2.5% Crm 1 APPLIC TOPICAL ×2 (10:20→20:38)
[2023-11-29] MEDS: Magnesium Citrate 300 ML PO (10:26)
--- NOTE | 2023-11-29 12:00 | NURSING ---
pt c/o frequency and burning with urination. UA & CS collected and sent to lab.
[2023-11-29] MEDS: traMADol 50 MG Tablet 100 MG PO ×2 (12:04→20:14)
[2023-11-29] MEDS: NYSTATIN 500,000 UNIT/5 ML UDC 500000 UNIT PO ×3 (12:36→20:21)
[2023-11-29 12:58] LABS: Bacteria 0 SEEN /hpf (None Seen); Mucous, Urine 0 SEEN /hpf (<or=2+); Squamous Epithelial Cells - UA 0 SEEN /hpf (0-5)
[2023-11-29 13:02] LABS: Color, Urine Yellow (Yellow); Glucose, Dipstick 250 mg/dl (Normal); Ketone-Dipstick Negative (Negative); Leukocyte Esterase-Dipstick 25 /ul (Negative); Nitrite-Dipstick Negative (Negative); Occult Blood-Urine 50 /ul (Negative); Protein-Dipstick 15 mg/dl (Negative); Urine Bilirubin Dipstick Negative (Negative); Urine Clarity Clear (Clear); Urine Urobilinogen Normal (Normal)
[2023-11-29 13:13] LABS: Red Blood Cells-Urine 0-5 SEEN /hpf (0-5); White Blood Cells 0-5 SEEN /hpf (0-5)
--- NOTE | 2023-11-29 15:56 | PCA ---
Seeing Jose Raul on camera with his present. She is tossing & turning him numerous times. We have to go in there & keep repositioning him & putting a new green pad on him. Went in there for the 5th. time & his told us to just leave him & if he has to have a bed change she will help us. Another lady that was in the room was very rude to us as well.
[2023-11-29] MEDS: oxyCODONE 5 MG Tablet PO ×2 (16:45→23:34)
[2023-11-29] MEDS: Pantoprazole Sodium 40 MG Tablet PO (20:21)
[2023-11-29] MEDS: Atorvastatin Calcium 40 MG Tablet PO (20:25)
[2023-11-29] MEDS: Primidone 50 MG Tablet 100 MG PO (20:31)
--- NOTE | 2023-11-29 21:06 | NURSING ---
Pt's requested that PM meds be given early tonight.
[2023-11-29 21:50] LABS: Bedside Glucose 224 mg/dL (74-106)
[2023-11-30] MEDS: NYSTATIN 500,000 UNIT/5 ML UDC 500000 UNIT PO ×4 (06:24→20:56)
[2023-11-30] MEDS: Acetaminophen 500 MG Tablet 1000 MG PO ×3 (06:24→20:55)
[2023-11-30] MEDS: Levothyroxine 88 MCG Tablet PO (06:24)
[2023-11-30 06:49] LABS: Bedside Glucose 209 mg/dL (74-106)
[2023-11-30] MEDS: Galantamine Hydrobromide 4 MG Tablet PO ×2 (09:09→20:56)
[2023-11-30] MEDS: Senna/Docusate Sodium 1 Tablet PO ×2 (09:09→20:56)
[2023-11-30] MEDS: Magnesium Chloride 64 MG Delay Rel.Tablet 128 MG PO ×2 (09:09→20:54)
[2023-11-30] MEDS: Venlafaxine HCl 75 MG Tablet PO (09:09)
[2023-11-30] MEDS: Hydrocortisone 2.5% Crm 1 APPLIC TOPICAL (09:09)
[2023-11-30] MEDS: levETIRAcetam 500 MG Tablet PO ×2 (09:09→20:56)
[2023-11-30] MEDS: APIXABAN 5 MG TABLET PO ×2 (09:10→20:56)
[2023-11-30] MEDS: Memantine Hydrochloride 10 MG Tablet PO ×2 (09:10→20:55)
[2023-11-30] MEDS: Glimepiride 4 MG Tablet PO ×2 (09:10→20:55)
[2023-11-30] MEDS: traMADol 50 MG Tablet 100 MG PO ×2 (09:11→20:41)
[2023-11-30] MEDS: Lidocaine 5% Patch 1 PATCH TOPICAL (09:11)
[2023-11-30 10:00] VITALS: BP 107/91; PULSE 98; RESP 16; TEMP 36.2; O2SAT 93; O2SAT 95
--- NOTE | 2023-11-30 11:05 | PCA ---
patients transferred patient. was educated by nurse
[2023-11-30] MEDS: oxyCODONE 5 MG Tablet PO (12:02)
[2023-11-30] MEDS: Magnesium Citrate 300 ML PO (18:10)
[2023-11-30] MEDS: Primidone 50 MG Tablet 100 MG PO (20:55)
[2023-11-30] MEDS: Pantoprazole Sodium 40 MG Tablet PO (20:56)
[2023-11-30] MEDS: Atorvastatin Calcium 40 MG Tablet PO (20:56)
--- NOTE | 2023-11-30 21:24 | NURSING ---
Spoke w/ Dr. Singh via phone requesting an order for a purewick at to decrease frequency of bed changes and turning which increases pt's pain level. New order received and read back for a purewick at .
--- NOTE | 2023-11-30 21:25 | NURSING ---
Triage from ED calls and questions if pt's spouse is ok to come to the unit. Informed nurse spouse can come to unit to stay w/ pt.
[2023-11-30 21:34] LABS: Bedside Glucose 253 mg/dL (74-106)
[2023-12-01] MEDS: oxyCODONE 5 MG Tablet PO ×2 (01:21→17:13)
[2023-12-01] MEDS: Acetaminophen 500 MG Tablet 1000 MG PO ×3 (06:04→20:35)
[2023-12-01] MEDS: Levothyroxine 88 MCG Tablet PO (06:05)
[2023-12-01] MEDS: Hydrocortisone 2.5% Crm 1 APPLIC TOPICAL (06:05)
[2023-12-01 06:48] LABS: Bedside Glucose 219 mg/dL (74-106)
--- NOTE | 2023-12-01 07:40 | RAD_ITS ---
INDICATION: Constipation. EXAMINATION/TECHNIQUE: X-RAY - XR Abdomen 1 View COMPARISON: No relevant prior comparison study available FINDINGS: BOWEL GAS PATTERN: Nonspecific gaseous small bowel loops are somewhat distended gaseous colon. FREE AIR: Not assessed on a single supine view. ORGANOMEGALY: Not seen. CALCIFICATIONS: No abnormal calcifications observed. LOWER CHEST: No acute pathology. BONES AND SOFT TISSUES: Degenerative changes of the lumbar spine. RAD/Abdomen Single View IMPRESSION: No specific gaseous small bowel loops and colon likely due to ileus. Early small bowel obstruction is less likely Electronically Signed: Donovan Solitario MD at 8:13 EDT ,
--- NOTE | 2023-12-01 08:20 | NURSING ---
X-ray ordered this AM d/t constipation, abdominal pain, Distention and small amount of liquid brown stool. X-ray completed and Called results to Dr. Singh. N.O. received for IV NS@75ml/hr, Stat CBC, CMP, Phosp. and Magnesium labs. Orders Read Back.
--- NOTE | 2023-12-01 08:20 | NURSING ---
X-ray ordered this AM d/t constipation, abdominal pain, Distention and small amount of liquid brown stool. X-ray completed and Called results to Dr. Singh. N.O. received for IV NS@75ml/hr, Stat CBC, CMP, Phosp. and Magnesium labs CT of abdomen with contrast to rule out ileus/Small Bowel obstruction. Orders Read Back.
[2023-12-01 09:19] LABS: Absolute Lymphocyte Count 1.51 X10^3/uL (0.83-4.51); Absolute Neutrophil Count 4.8 X10^3/uL (2.0-7.7); Basophil# 0.03 X10^3/uL; Basophil% 0.4 % (0-1); Eosinophil# 0.16 X10^3/uL; Eosinophils% 2.2 % (0-5); Hematocrit 35.8 % (40-54); Hemoglobin 11.6 g/dL (13.0-16.5); Lymphocyte # 1.51 X10^3/ul (0.83-4.51); Lymphocyte % 20.9 % (19-41); Mean Corp Hgb Conc 32.4 g/dL (32-36); Mean Corpuscular Hgb 30.3 pg (27.0-32.0); Mean Corpuscular Volume 93.5 fL (80-94); Mean Platelet Vol. 9.4 fl (6.2-12.0); Monocyte# 0.69 X10^3/uL; Monocyte% 9.5 % (0-10); NRBC Flagged by Analyzer 0 % (0-5); Neutrophil % 66.4 % (47-70); Platelet Count 353 K/mm3 (150-450); RBC Distribution Width CV 13.1 % (11.6-14.6); RBC Distribution Width SD 43.9 fl (35.1-43.9); Red Blood Count 3.83 M/mm3 (4.6-6.2); White Blood Count 7.2 K/mm3 (4.4-11.0)
[2023-12-01 09:39] LABS: Phosphorus 3.1 mg/dL (2.5-4.9)
[2023-12-01 09:45] LABS: ALB/GLOB Ratio 0.8 RATIO (0.9-2.4); AST(SGOT) 35 U/L (15-37); Alanine Aminotransfer ALT/SGPT 22 U/L (16-61); Albumin, Serum 3.2 g/dL (3.2-5.0); Alkaline Phosphatase 81 U/L (45-117); Anion Gap 3 (5-15); BUN 7 mg/dL (7-18); BUN/Creat Ratio 7.6 RATIO (10-20); Calcium,Total 8.9 mg/dL (8.5-10.1); Chloride 99 mmol/L (98-107); Creatinine, Serum 0.92 mg/dL (0.70-1.30); EST Glomerular Filtration Rate 82 mL/min (>60); Est Glom Filt Rate - Afr Amer 99 mL/min (>60); Estimated Creatinine Clearance 55.47 ml/min; Glucose 220 mg/dL (74-106); Magnesium 2.5 mg/dL (1.6-2.6); Potassium 4.9 mmol/L (3.5-5.1); Protein, Total 7.2 g/dL (6.4-8.2); Sodium Level 131 mmol/L (136-145)
[2023-12-01] MEDS: 0.9% Normal Saline (1000mL) 1,000 ML 75 ML IV ×2 (10:03→20:33)
[2023-12-01] MEDS: Memantine Hydrochloride 10 MG Tablet PO ×2 (10:06→20:39)
[2023-12-01] MEDS: APIXABAN 5 MG TABLET PO ×2 (10:06→20:37)
[2023-12-01] MEDS: Magnesium Chloride 64 MG Delay Rel.Tablet 128 MG PO ×2 (10:06→20:35)
[2023-12-01] MEDS: Glimepiride 4 MG Tablet PO ×2 (10:06→20:37)
[2023-12-01] MEDS: levETIRAcetam 500 MG Tablet PO ×2 (10:06→20:38)
[2023-12-01] MEDS: Venlafaxine HCl 75 MG Tablet PO (10:06)
--- NOTE | 2023-12-01 10:06 | NURSING ---
Addendum entered by Naa Chase 12/02/23 09:44: CT cancelled per Dr. Singh. Updated insurance. Original Note: Per [employer], clinical information needed to see if they can approve abdominal CT w/ contrast that was ordered. Clinical info faxed to #[phone]. Reference #[id number].
[2023-12-01] MEDS: Senna/Docusate Sodium 1 Tablet PO (10:07)
[2023-12-01] MEDS: Lidocaine 5% Patch 1 PATCH TOPICAL (10:15)
--- NOTE | 2023-12-01 11:48 | NURSING ---
Offered covid vaccine, VIS provided. Patient refuses at this time.
[2023-12-01] MEDS: Galantamine Hydrobromide 4 MG Tablet PO ×2 (11:51→20:40)
--- NOTE | 2023-12-01 12:15 | NURSING ---
Blade Grader Operator Note; Activity Asset: Kaden Blunt's was in room and answered his activity questions due to him not feeling well and sleeping. She stated he will read the news paper and visits with the forklift truck mechanic and therapy dog will be fine. She will be her weekly with him and will bring him anything he may need or want. Staff will remind him of weekly activities and respect his right to say no.
[2023-12-01] MEDS: NYSTATIN 500,000 UNIT/5 ML UDC 500000 UNIT PO ×3 (12:43→20:39)
[2023-12-01 13:53] VITALS: PULSE 74; RESP 16; TEMP 36.1
--- NOTE | 2023-12-01 20:05 | NURSING ---
activated call light, staff quick to respond. Staff observed patient on knees at bedside, also at bedside stating he did not hit his head. Received patient's vitals, refer to worklist. Staff transferred patient back into bed. No injuries observed, no new pain reported at this time. When asked what patient was doing prior to fall, patient stated I was going to bed. Patient A/O x2 per baseline, can get confused at times. Dr. Singh notified, no new orders at this time.
[2023-12-01 20:30] VITALS: PULSE 81; RESP 17; O2SAT 94
[2023-12-01] MEDS: Pantoprazole Sodium 40 MG Tablet PO (20:38)
[2023-12-01] MEDS: Atorvastatin Calcium 40 MG Tablet PO (20:38)
[2023-12-01] MEDS: Primidone 50 MG Tablet 100 MG PO (20:39)
[2023-12-01 21:41] LABS: Bedside Glucose 222 mg/dL (74-106)
[2023-12-01] MEDS: Menthol/Lanolin/Calamine/Znox 113 GM Tube 1 APPLIC TOPICAL (22:19)
[2023-12-01 22:32] VITALS: BP 120/71; PULSE 81; RESP 17; O2SAT 94
[2023-12-02] MEDS: oxyCODONE 5 MG Tablet PO (01:19)
--- NOTE | 2023-12-02 01:36 | NURSING ---
Addendum entered by Rochelle Priest 12/02/23 03:27: Patient continued to be restless and agitated. Patient impulsive and continues to try to get up w/o assistance. Patient ripped out IV, and is tearing off attends. Dr. Singh consulted via telephone. N.O. for Ativan 0.5mg Q4H PRN PO and order to DC continuous fluids. Order read back for clarification. Original Note: pt noted to be restless in bed(pt is on a room camera). staff went into the room and spouse was at pt bedside . pt had rolled around in the bed and had iv tubing and purewick tubing wrapped around his arm, torso, and hip and leg. spouse expressed frustration about pt being restless at night and not getting any rest and then she doesn't get any rest. spouse was asking if there is any medication to give him to so that he wouldn't be so restless and pt was given ativan at the other hospital and it was effective . pt denied having pain and then he is having the worst pain ever-rn medicated with oxyir.
[2023-12-02] MEDS: LORazepam 0.5 MG Tablet PO (03:36)
[2023-12-02] MEDS: Levothyroxine 88 MCG Tablet PO (05:37)
[2023-12-02] MEDS: Acetaminophen 500 MG Tablet 1000 MG PO ×3 (05:37→22:08)
[2023-12-02] MEDS: NYSTATIN 500,000 UNIT/5 ML UDC 500000 UNIT PO ×2 (05:37→13:45)
[2023-12-02 06:23] VITALS: RESP 16
[2023-12-02 06:28] LABS: Bedside Glucose 185 mg/dL (74-106)
[2023-12-02 06:29] LABS: Anion Gap 5 (5-15); BUN 8 mg/dL (7-18); Calcium,Total 8.7 mg/dL (8.5-10.1); Chloride 101 mmol/L (98-107); Creatinine, Serum 0.73 mg/dL (0.70-1.30); EST Glomerular Filtration Rate 108 mL/min (>60); Est Glom Filt Rate - Afr Amer 131 mL/min (>60); Glucose 235 mg/dL (74-106); Potassium 4.2 mmol/L (3.5-5.1); Sodium Level 132 mmol/L (136-145)
--- NOTE | 2023-12-02 07:50 | RAD_ITS ---
STUDY: X-RAY - LUMBAR SPINE REASON FOR EXAM: Male, 87 years old. Acute Pain TECHNIQUE: 2 view(s) of the lumbar spine were obtained. COMPARISON: None FINDINGS: Normal lumbar lordosis. There is a dextroscoliosis of the lumbar spine. There is a normal alignment of the vertebrae. There is multilevel endplate spondylosis of the lumbar vertebrae. There is multi-level degenerative disc disease with multi-level disc space narrowing. Facet joint osteoarthritis. There is atherosclerotic calcification of the abdominal aorta without a demonstrated aneurysm. RAD/Lumbar Spine 2 or 3 Views IMPRESSION: Degenerative changes of the spine, as detailed above. Electronically Signed: Carl Wisdom MD at 9:47 EDT ,
[2023-12-02] MEDS: Hydrocortisone 2.5% Crm 1 APPLIC TOPICAL (10:11)
[2023-12-02] MEDS: Lidocaine 5% Patch 1 PATCH TOPICAL (10:12)
[2023-12-02] MEDS: Senna/Docusate Sodium 1 Tablet PO (10:13)
[2023-12-02] MEDS: Glimepiride 4 MG Tablet PO ×2 (10:13→22:11)
[2023-12-02] MEDS: levETIRAcetam 500 MG Tablet PO ×2 (10:13→22:08)
[2023-12-02] MEDS: Magnesium Chloride 64 MG Delay Rel.Tablet 128 MG PO ×2 (10:13→22:11)
[2023-12-02] MEDS: Memantine Hydrochloride 10 MG Tablet PO ×2 (10:13→22:09)
[2023-12-02] MEDS: Galantamine Hydrobromide 4 MG Tablet PO ×2 (10:13→22:09)
[2023-12-02] MEDS: APIXABAN 5 MG TABLET PO ×2 (10:14→22:09)
[2023-12-02] MEDS: Menthol/Lanolin/Calamine/Znox 113 GM Tube 1 APPLIC TOPICAL ×2 (10:28→23:19)
[2023-12-02] MEDS: hydrOXYzine PAM 25 MG Capsule PO (12:04)
--- NOTE | 2023-12-02 12:56 | NURSING ---
Pt c/o of feeling dizziness and restless. BP 163/[address] Pulse 59. [address]. Singh updated N.O. to give Vistaril for Anxiety. Order read back.
--- NOTE | 2023-12-02 16:42 | NURSING ---
PRESS SETTER called this Nurse to room pt was laying on floor on back. Pt stated he was trying to get to the restroom. Pt assisted back to bed and was found to be incontinent of stool. BP 165/74 Pulse 90 SpO2 92% RA. PERRL Hand sales merchandiser WNL and Pedal push pull WNL. Pt denied any pain at this time. Dr. Singh updated and pt sent to E.R.. Notified and went to E.R. with pt.
--- NOTE | 2023-12-02 20:01 | NURSING ---
Report received from ER No acute findings pt received Morphine IV for pain in ER and is resting comfortably. Vitals BP 155/82 Pulse 63 Temp 98.3 RR16. This nurse and STEMMER MACHINE went and picked up pt from ER and returned him to room family at bedside.
--- NOTE | 2023-12-02 21:00 | NURSING ---
Dr. Singh informed of patient returning to unit from ED following fall. New order received for Roxanol 10mg po/sl q1h prn. Family updated.
[2023-12-02] MEDS: Atorvastatin Calcium 40 MG Tablet PO (22:09)
[2023-12-02] MEDS: MorphINE SOLN 10 MG/0.5 ML PO.SYRINGE PO ×2 (22:09→23:10)
[2023-12-02] MEDS: Pantoprazole Sodium 40 MG Tablet PO (22:09)
[2023-12-02] MEDS: LORazepam 1 MG Tablet PO (22:09)
[2023-12-02] MEDS: Primidone 50 MG Tablet 100 MG PO (22:11)
--- NOTE | 2023-12-02 22:26 | NURSING ---
Patient coughing when taking in thin liquids. Thickened water to nectar thickened, patient had no difficulty swallowing, no coughing noted. Will continue to monitor.
[2023-12-03] MEDS: MorphINE SOLN 10 MG/0.5 ML PO.SYRINGE PO (01:14)
[2023-12-03 08:33] LABS: Bedside Glucose 240 mg/dL (74-106)
[2023-12-03 08:33] LABS: Bedside Glucose 155 mg/dL (74-106)
[2023-12-03 10:00] VITALS: RESP 12
--- NOTE | 2023-12-03 11:08 | CASEMGMT ---
Addendum entered by Sidra Russell 12/03/23 16:27: Patient accepted at [facility] and transport scheduled for 1630 today. IDT updated. Original Note: Social Work inquired yesterday to Dr. Singh about terminal restlessness or if pt will improve with agitation. ordered further medication to assist with symptom management, per nursing. SW conferred with Dr on if pt was terminal and Dr agreed and requested this worker begin conversation with family on hospice. IDT agreeable to hospice recommendation as well. Per nursing, pt was sent to the ED last evening and received IV morphine, which pt has responded to well and significantly reduced restlessness. IDT met with patient, two dtrs then another dtr via conference call for care plan meeting. Discussed patient's progress in PT/OT/ST/SN. Educated to [facility] insurance with NRD 11/30 and continued stay is not guaranteed with each review. Pt has had some change in condition recently and family inquiring about prognosis. SW dismissed the rest of the team to discuss 1:1 with family. SW explained Drs recommendations for hospice. SW explained hospice services, [facility], home or SNF. SW educated to [facility] services and pt needing to meet eligibility criteria. After discussion and answering family's questions, family in agreement for hospice referral with [facility] if accepted, but noting pt wants to at home; or transfer pt home with family support. KATINA updated IDT and Dr. Referral made to [facility] via secure email. Nurse will be present within an hour to assess. SW will continue to follow. CATHY BlakeW
[2023-12-03] MEDS: Menthol/Lanolin/Calamine/Znox 113 GM Tube 1 APPLIC TOPICAL (11:32)
[2023-12-03 12:19] VITALS: BP 125/77; PULSE 78; RESP 12; TEMP 36.7; O2SAT 98
[2023-12-03 16:00] VITALS: BP 115/76; PULSE 85; RESP 14; TEMP 36.7; O2SAT 94
--- NOTE | 2023-12-03 16:04 | DS.PCM_ITS ---
Providers Date of Admission: 11/27/23 Primary Care Physician: Dr. 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: Status: Acute Code(s): I63.531 - Cerebral infarction due to unspecified occlusion or stenosis of right posterior cerebral artery (2) Debility: Status: Acute Code(s): R53.81 - Other malaise (3) Alzheimer disease: Status: Acute Code(s): G30.9 - Alzheimer's disease, unspecified; F02.80 - Dementia in other diseases classified elsewhere, unspecified severity, without behavioral disturbance, psychotic disturbance, mood disturbance, and anxiety (4) Atrial flutter: Status: Acute Code(s): I48.92 - Unspecified atrial flutter (5) Contusion of left hip: Status: Acute Code(s): S70.02XA - Contusion of left hip, initial encounter (6) Cervical spinal stenosis: Status: Acute Code(s): M48.02 - Spinal stenosis, cervical region (7) Chronic anemia: Status: Chronic Code(s): D64.9 - Anemia, unspecified (8) Hypertension: Status: Chronic Code(s): I10 - Essential (primary) hypertension (9) Hyperlipidemia: Status: Acute Code(s): E78.5 - Hyperlipidemia, unspecified Plan 87 year old male with below past medical history hospitalized for acute right po sterior circulation stroke, complicated by left hip contusion, cervical spinal stenosis, admitted to TCU with debility, here for rehabilitation, strengthening, prior to discharge home with . * Debility - PT/OT/ST. * Pain - Tylenol 1000mg q8, Tramadol 50mg q6 prn pain (1-5), Oxycodone 2.5mg q4 prn pain (6-10), Lidoderm 1 patch td daily. * Bowel - senna/colace 1 tablet bid, Magnesium citrate 300ml daily prn. * Adult immunization - Administer pneumonia vaccine, covid vaccine, flu vaccine as appropriate * DVT prophylaxis - on Eliquis. * Atrial Flutter - Eliquis 5mg bid. * Hyperlipidemia - Atorvastatin 40mg qhs. * Alzheimer Disease - Galantamine 4mg bid, Memantine 10mg bid. * Diabetes Mellitus II - Glimepiride 4mg bid. * Seizure prophylaxis - Keppra 500mg q12. * Hypothyroidism - Levothyroxine 88mcg daily. * Hypomagnesemia - Magnesium chloride 128mg bid. * GERD - Pantoprazole 40mg qhs. * Tremor - Primidone 100mg qhs. 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 Hospital Course Operations None Procedures None Summary of Care Provided Minutes Spent on Discharge: 35 Hospital Course: 87 year old male with below past medical history hospitalized for acute right posterior circulation stroke, complicated by left hip contusion, cervical spinal stenosis, admitted to TCU with debility, here for rehabilitation, strengthening, prior to discharge home with . Resident dying. He has terminal restlessness, anxiety. Discharge to inpatient hospice facility for symptom control, end of life care 12/03/2023. Physical Exam Const alert General Appearance: cooperative HEENT normocephalic Eyes PERRL and EOMs intact bilaterally Neck supple, no JVD and no carotid bruits Resp normal respiratory effort, normal air movement and clear to auscultation bilaterally Cardio regular rate and regular rhythm GI normal to inspection, nondistended, normoactive bowel sounds, non-tender and non-distended Extremity normal capillary refill General Extremity: Negative for edema Skin no rashes or lesions noted General Skin Exam: no breakdown Neuro Neuro Narrative: LUE hemiparesis, LLE hemiplegia. Left sided neglect. NIHSS 7 Speech: speech abnormal Psych affect normal Appearance: appropriate Weight / BMI Weight Weight: 80.966 kg Body Mass Index (BMI) 28.8 ABG / Lab / Microbiology Data 12/01/23 09:10 12/02/23 05:28 Laboratory: Laboratory Results - last 24 hr 12/02/23 21:29: POC Glucose 155 H 12/03/23 06:30: POC Glucose 240 H Microbiology: Microbiology 11/29/23 12:54 Urine Catheter - Catheter Urine Culture - Final Culture exhibits no growth. D/C Instructions Discharge Diet: No restrictions Discharge Activity: Return to Normal Activity Weight Bearing Status: Weight bearing as tolerated Additional Instructions: Discharge to inpatient hospice facility for symptom control, end of life care 12/03/2023. Please Follow Up With: [facility] When: Cancel. Meaningful Use Info Meaningful Use Diagnoses (Choose all that apply): Ischemic CVA CVA Therapy Assessed for PT,OT and/or ST?: Yes Ischemic Stroke Antithrombotic order at d/c?: Yes Dx of Atrial fib/flutter?: Yes Anticoagulant at discharge?: No Reason anticoagulant not ordered: Hospice Statins at discharge?: No Reason Statin not ordered: Hospice Primary Dx Acute Ischemic CVA?: Yes Discharge Plan Admission Admit Date/Time: 11/27/23 17:10 Primary Reason for Your Visit: Debility. Attending Provider: Elliott Singh Chi Primary Care Provider: Elliott Singh Chi Instructions Additional Instructions / Restrictions: Discharge to inpatient hospice facility for symptom control, end of life care 12/03/2023. Discharge Orders/Prescriptions Prescriptions: Discontinued atorvastatin 40 MG tablet 40 mg PO QHS Patient Comments: CHOLESTEROL glimepiride 4 MG tablet 4 mg PO BID Patient Comments: DIABETES Alive Multivitamin 2 tab PO BID Patient Comments: SUPPLEMENT milk thistle 150 MG capsule 150 mg PO QHS Patient Comments: SUPPLEMENT fluoxetine 10 MG capsule 10 mg PO QHS Hold Instructions: Order Changed Patient Comments: MOOD magnesium oxide 400 MG tablet 400 mg PO BID coenzyme Q10 [Co Q-10] 100 MG capsule 100 mg PO DAILY Fish Oil 1,280 mg PO BID cholecalciferol (vitamin D3) [D3-2000] 2,000 UNIT capsule 2,000 unit PO DAILY Calcium 1 tab PO BID polyethylene glycol 3350 [Miralax] 17 gram/dose powder 17 g PO DAILY Patient Comments: hydrocodone-acetaminophen 1 TABLET tablet 1 tab PO QHS 3 Days Qty: 10 0RF Hold Instructions: Ordered/Entered in error losartan 50 mg tablet 50 mg PO DAILY amlodipine 2.5 mg tablet 2.5 mg PO BID omeprazole 40 mg capsule,delayed release(DR/EC) 40 mg PO DAILY primidone 50 mg tablet 100 mg PO QHS venlafaxine 75 mg tablet 75 mg PO DAILY memantine 10 mg tablet 10 mg PO BID acetaminophen 500 mg tablet 500 mg PO Q6H PRN (Reason: fever or pain) levothyroxine 88 mcg tablet 88 mcg PO DAILY levetiracetam 500 mg tablet 500 mg PO Q12.TCU galantamine 8 mg capsule,ext rel. pellets 24 hr 8 mg PO DAILY lidocaine 4 % adhesive patch,medicated 1 patch topical Q24H Rx Instructions: may leave on for up to 12 hrs Eliquis 5 mg tablet 5 mg PO BID Referrals / Follow Up: Elliott Singh Chi, MD [Primary Care Provider] - Disposition Disposition (needs filled in before D/C Order can be placed): Hospice in Medical Facility
--- NOTE | 2023-12-03 16:25 | NURSING ---
Bernadine from [facility] transortation reports they have to change p/u time from 4:30pm to 7-7:30 pm. Family to be made aware.
[2023-12-03] MEDS: LORazepam 1 MG Tablet PO (18:38)
--- NOTE | 2023-12-09 14:25 | MDS.RN ---
Information for the mds was obtained from review of the clinical record, interview of resident, staff, and direct observation of resident's care.
== END 2023-12-03 19:00 | disposition hospice, inpatient (51) | DRG 57 ==
PROVIDERS: Admitting Provider Family Medicine Geriatric Medicine; PCP Family Medicine Geriatric Medicine; Visit Provider Family Medicine Geriatric Medicine
DX: I69.354 Hemiplegia and hemiparesis following cerebral infarction affecting left non-dominant side (principal); I48.92 Unspecified atrial flutter; F02.80 Dementia in other diseases classified elsewhere, unspecified severity, without behavioral disturbance, psychotic disturbance, mood disturbance, and anxiety; E11.9 Type 2 diabetes mellitus without complications; G30.9 Alzheimer's disease, unspecified; E03.9 Hypothyroidism, unspecified; I10 Essential (primary) hypertension; F32.A Depression, unspecified; E78.5 Hyperlipidemia, unspecified; K21.9 Gastro-esophageal reflux disease without esophagitis; M48.02 Spinal stenosis, cervical region; E83.42 Hypomagnesemia; R25.1 Tremor, unspecified; W19.XXXD Unspecified fall, subsequent encounter; F41.9 Anxiety disorder, unspecified; S70.02XD Contusion of left hip, subsequent encounter; Z79.84 Long term (current) use of oral hypoglycemic drugs; Z87.891 Personal history of nicotine dependence; Z79.01 Long term (current) use of anticoagulants; Z79.899 Other long term (current) drug therapy; R29.6 Repeated falls; Z79.890 Hormone replacement therapy
CPT/HCPCS: 36415; 72100; 73070; 73502; 74018; 80048; 80053; 80061; 81001; 82962; 83735; 84100; 85025; 87086; 92507; 92523; 92526; 92610; 97110; 97162; 97166; 97530; 97535; 97802; J7030

== ENCOUNTER 2023-12-02 15:59 | Emergency (ER) | payer MEDICARE, SELFPAY ==
[2023-12-02 16:02] VITALS: BP 146/81; PULSE 71; RESP 18; TEMP 36.8; O2SAT 97; BMI 28.1
--- NOTE | 2023-12-02 16:18 | EKG12_ITS ---
Test Reason : Blood Pressure : / mmHG Vent. Rate : 063 BPM Atrial Rate : 250 BPM P-R Int : 000 ms QRS Dur : 080 ms QT Int : 442 ms P-R-T Axes : 000 -26 -19 degrees QTc Int : 452 ms Atrial flutter with variable A-V block Nonspecific ST and T wave abnormality Abnormal ECG Confirmed by Henrry López ([id number]), editorial director ANTONINO NAVARRETE ([id number]) on 12/04/2023 11:01:30 AM Referred By: Confirmed By:Henrry López
--- NOTE | 2023-12-02 16:19 | ED.VIS.FALL ---
HPI HPI - Fall History of Present Illness Chief Complaint: Fall Detail of Chief Complaint: Unwitnessed fall with change in mental status Informant: spouse/S.O. and SNF Limited: language barrier and stupor Occured/Mechanism Occurred: Today Narrative: Unknown/unwitnessed fall Fall from Height (ft): Reportedly standing Pain/Injury Location: TCU Worsened by: Unable to determine Relieved by: Unable to determine Narrative Narrative: Patient was discharged from the hospital to TCU after stroke. He had altered mental status. He does have history of atrial fibs flutter on anticoagulant. He presently is unable to cooperate with regards to history and physical because of his altered mental status. He is only oriented x 1 per . He appears more agitated per . He does have history of dementia reviewing old records. There is also history of type 2 diabetes, hyperlipidemia and hypertension. He had a recent ischemic multifocal right-sided posterior circulatory stroke. 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 Alzheimer disease Atrial flutter Cervical spinal stenosis Chronic anemia Contusion of left hip Debility Hyperlipidemia Hypertension Hypothyroidism Home Medications Alive Multivitamin 2 tab PO BID SUPPLEMENT 06/04/16 [History Last Taken 04/23/18] atorvastatin 40 mg tablet 40 mg PO QHS CHOLESTERPL 06/04/16 [History Last Taken 04/22/18] fluoxetine 10 mg capsule 10 mg PO QHS depresssion 06/04/16 [History Last Taken 04/22/18] glimepiride 4 mg tablet 4 mg PO BID DIABETES 06/04/16 [History Last Taken 04/23/18] milk thistle 150 mg capsule 150 mg PO QHS supplement 06/04/16 [History Last Taken 04/22/18] Calcium 1 tab PO BID SUPPLEMENT 04/23/18 [History Last Taken 04/23/18] Fish Oil 1,280 mg PO BID SUPPLEMENT 04/23/18 [History Last Taken 04/23/18] cholecalciferol (vitamin D3) 50 mcg (2,000 unit) capsule (D3-2000) 2,000 unit PO DAILY SUPPLEMENT 04/23/18 [History Last Taken 04/23/18] coenzyme Q10 100 mg capsule (Co Q-10) 100 mg PO DAILY SUPPLEMENT 04/23/18 [History Last Taken 04/22/18] hydrocodone-acetaminophen 5-325mg 5mg-325mg 1 tab PO QHS pain\ 3 days #10 tabs 04/23/18 [Rx Last Taken Unknown] magnesium oxide 400 mg (241.3 mg magnesium) tablet 400 mg PO BID SUPPLEMENT 04/23/18 [History Last Taken 04/23/18] polyethylene glycol 3350 17 gram/dose oral powder (Miralax) 17 g PO DAILY CONSTIPATION 04/23/18 [History Last Taken 04/22/18] acetaminophen 500 mg tablet 500 mg PO Q6H PRN fever or pain 11/27/23 [History Last Taken Unknown] apixaban 5 mg tablet (Eliquis) 5 mg PO BID blood thinner 11/27/23 [History Last Taken Unknown] galantamine 8 mg 24 hr capsule,extended release 8 mg PO DAILY unknown 11/27/23 [History Last Taken Unknown] levetiracetam 500 mg tablet 500 mg PO Q12.TCU seizure prevention 11/27/23 [History Last Taken Unknown] levothyroxine 88 mcg tablet 88 mcg PO DAILY thyroid 11/27/23 [History Last Taken Unknown] lidocaine 4 % topical patch 1 patch topical Q24H pain 11/27/23 [History Last Taken Unknown] memantine 10 mg tablet 10 mg PO BID memory 11/27/23 [History Last Taken Unknown] primidone 50 mg tablet 100 mg PO QHS health 11/27/23 [History Last Taken Unknown] venlafaxine 75 mg tablet 75 mg PO DAILY mood 11/27/23 [History Last Taken Unknown] amlodipine 2.5 mg tablet 2.5 mg PO BID 12/02/23 [History Last Taken Unknown] losartan 50 mg tablet 50 mg PO DAILY 12/02/23 [History Last Taken Unknown] omeprazole 40 mg capsule,delayed release 40 mg PO DAILY 12/02/23 [History Last Taken Unknown] Allergy/AdvReac Type Severity Reaction Status Date / Time Penicillins Allergy hypotension Verified 12/02/23 16:01 Family History Father CVA (cerebral vascular accident) Mother Myocardial infarction Other Cancer Surgical History Hx of appendectomy Hx of hernia repair Social History household members: spouse Smoking Status: Former smoker alcohol intake: current what type of physical activity do you participate in: walking frequency: 1-2 times per week ROS ROS ED Review of Systems ROS Unobtainable: due to mental status EXAM Physical Exam Const Vital Signs: 12/02/23 16:02 12/02/23 16:07 12/02/23 18:00 Temperature 98.3 F Temperature Source Oral Pulse Rate 71 58 L Respiratory Rate 18 18 Respiratory Effort Normal Respiratory Depth Normal Respiratory Pattern Normal Blood Pressure 146/81 H 137/109 H Blood Pressure Mean 102 118 Pulse Ox 97 94 Oxygen Delivery Method Room Air Room Air Room Air Positive well developed and unkempt Constitutional Narrative: Patient appears agitated. General Appearance ED: unkempt and well developed HEENT Reports normocephalic HEENT Narrative: Ears normal. No clinical signs of basilar skull fracture. atraumatic Eyes PERRL and EOMs intact bilaterally Eyes Narrative: Pupils are 1 to 2 mm size. Unable to determine if they are reactive to light. There is no nystagmus. Gaze appears conjugate. General Eye ED: Negative for pale conjunctiva or scleral icterus Neck full ROM, no lymphadenopathy and supple Chest Wall inspection of chest normal and palpation of chest normal Resp normal respiratory effort and no retractions Resp Narrative: Adventitial breath sounds bilaterally. Question of rales at the base. Inspiratory volume is limited. Cardio regular rate, S1 normal heart sound, S2 normal heart sound and no murmurs Rhythm: abnormal rhythm irregularly irregular GI non-tender, non-distended and no masses Auscultation: Negative for normoactive bowel sounds Back/Spine Back/Spine Narrative: Inspection of the back appears normal. Extremity Extremity Narrative: There are skin abrasions left upper extremity. Neuro No oriented x3, No CN's II-XII intact bilaterally and moves all extremities [place] Coma Scale: document GCS findings To Pain Localizes to Pain Inappropriate 10 Sensorium / Orientation: Negative for alert Psych Appearance: unkempt Skin Trauma: abrasion MDM MDM MDM Narrative Medical decision making narrative: With history of fall on anticoagulant with change in mental status from baseline obtain CT of the head to rule out intracranial bleed. Patient is hypotensive. Nurse believes this is due to him being fidgety. Also need to evaluate for pneumonia, UTI or metabolic causes. Therefore will obtain CT of the head, chest x-ray, UA and appropriate lab work. Prior records were reviewed. I was informed by message that patient requesting pain medicine. 2 mg of morphine was ordered with 4 mg of Zofran. I understand that he did receive tramadol and oxycodone today in the TCU unit. Lab Data Attestation: I reviewed the patient's lab results. Lab results narrative: CBC is remarkable for mild anemia with an H&H 11 1 and 33.5. Coags are normal. Lactate is elevated 2.2. Comprehensive metabolic panel is unremarkable. The blood sugar is elevated to 38 with a normal CO2 anion gap. Transaminases normal. Urine is negative. Labs: Laboratory Results - last 24 hr 12/02/23 12/02/23 12/02/23 16:20 16:30 16:58 WBC 6.5 RBC 3.60 L Hgb 11.1 L Hct 33.5 L MCV 93.1 MCH 30.8 MCHC 33.1 RDW Std Deviation 44.6 H RDW Coeff of [place] 13.2 Plt Count 358 MPV 9.6 Immature Gran % (Auto) 0.600 Neut % (Auto) 69.6 Lymph % (Auto) 18.5 L [place] % (Auto) 8.8 Eos % (Auto) 2.0 Baso % (Auto) 0.5 Absolute Neuts (auto) 4.5 Absolute Lymphs (auto) 1.20 Nucleated RBC % 0 PT 16.8 H INR 1.4 APTT 33.9 Sodium 134 L Potassium 4.8 Chloride 101 Carbon Dioxide 27.0 Anion Gap 6 BUN 8 Creatinine 0.97 Estim Creat Clear Calc 52.06 Est GFR (MDRD) Af Amer 93 Est GFR (MDRD) Non-Af 77 BUN/Creatinine Ratio 8.2 L Glucose 238 H Lactic Acid 2.2 H* Calcium 8.7 Total Bilirubin 0.80 AST 26 ALT 20 Alkaline Phosphatase 81 Total Protein 7.0 Albumin 3.2 Globulin 3.8 Albumin/Globulin Ratio 0.8 L Urine Color Yellow Urine Clarity Clear Urine pH 7.0 Ur Specific [place] 1.010 Urine Protein Negative Urine Glucose (UA) 250 H Urine Ketones Negative Urine Occult Blood 10 H Urine Nitrite Negative Urine Bilirubin Negative Urine Urobilinogen Normal Ur Leukocyte Esterase Negative Urine RBC 0 SEEN Urine WBC 0 SEEN Ur Squamous Epith Cells 0 SEEN Urine Bacteria 0 SEEN Urine Mucus 0 SEEN POC Glucose 181 H ABG Data Attestation: I personally reviewed and interpreted this ABG as follows: Interpretation: ABG is unremarkable. ABG results: ABG 12/02/23 17:50 Specimen Type ART Sample Site L Radial pH 7.43 Bicarbonate Actual 26.6 H Total CO2 28 Base Excess 2 O2 Saturation 96 O2 % 21.0 ABG pCO2 40.3 ABG pO2 77 Alberto Test Positive O2 Delivery Device Not entered Vent Mode Not entered Radiography Chest X-Ray - ED: 1 View and Read by ED Physician (Independently reviewed interpreted by me at 1642 as negative for any acute process. Cardiac silhouette and size normal. Limited inspiratory volume. Therefore difficult to read if there is an infiltrate. There is definitely no effusion that I am able to appreciate. Osseous structures reveal no a) Diagnostic Testing: Clinical Impression(s) from Imaging Studies Chest X-Ray 12/02/23 16:35 IMPRESSION: Diminished inspiratory effort and bibasilar atelectasis or infiltrates more severe on the left Electronically Signed: Howard Castro MD at 16:55 EDT , Brain CT 12/02/23 16:58 IMPRESSION: Subacute right cerebral hemisphere infarct. No evidence for acute intracranial bleed. Electronically Signed: Howard Castro MD at 17:52 EDT , CT of the head per my independent read reveals no evidence of acute process. There is evidence of a old right posterior stroke. There is also evidence of other strokes versus significant atrophy.. Patient was admitted on the for right posterior cerebellar stroke and correlates with CT findings of subacute stroke. Discharge Plan Triage Chief Complaint: Fall ED Provider: Ceasar Carrillo Dx/Rx/DC Orders Clinical Impression: Acute on chronic alteration in mental status, Type 2 diabetes mellitus, Alzheimer disease, CHI (closed head injury), Atrial fibrillation and flutter, Anticoagulant long-term use, Contusion of left hip, initial encounter, Abrasion of left elbow, initial encounter Instructions: ED Confusion Prescriptions: No Action Alive Multivitamin 2 tab PO BID Patient Comments: SUPPLEMENT atorvastatin 40 MG tablet 40 mg PO QHS Patient Comments: CHOLESTEROL milk thistle 150 MG capsule 150 mg PO QHS Patient Comments: SUPPLEMENT glimepiride 4 MG tablet 4 mg PO BID Patient Comments: DIABETES fluoxetine 10 MG capsule 10 mg PO QHS Hold Instructions: Order Changed Patient Comments: MOOD magnesium oxide 400 MG tablet 400 mg PO BID coenzyme Q10 [Co Q-10] 100 MG capsule 100 mg PO DAILY Fish Oil 1,280 mg PO BID cholecalciferol (vitamin D3) [D3-2000] 2,000 UNIT capsule 2,000 unit PO DAILY Calcium 1 tab PO BID polyethylene glycol 3350 [Miralax] 17 gram/dose powder 17 g PO DAILY Patient Comments: hydrocodone-acetaminophen 1 TABLET tablet 1 tab PO QHS 3 Days Qty: 10 0RF Hold Instructions: Ordered/Entered in error losartan 50 mg tablet 50 mg PO DAILY amlodipine 2.5 mg tablet 2.5 mg PO BID omeprazole 40 mg capsule,delayed release(DR/EC) 40 mg PO DAILY primidone 50 mg tablet 100 mg PO QHS venlafaxine 75 mg tablet 75 mg PO DAILY memantine 10 mg tablet 10 mg PO BID acetaminophen 500 mg tablet 500 mg PO Q6H PRN (Reason: fever or pain) levothyroxine 88 mcg tablet 88 mcg PO DAILY levetiracetam 500 mg tablet 500 mg PO Q12.TCU galantamine 8 mg capsule,ext rel. pellets 24 hr 8 mg PO DAILY lidocaine 4 % adhesive patch,medicated 1 patch topical Q24H Rx Instructions: may leave on for up to 12 hrs Eliquis 5 mg tablet 5 mg PO BID Primary Care Provider: Elliott Singh Chi Referrals: Elliott Singh Chi, MD [Primary Care Provider] - As Needed Disposition Disposition: NonSkilled NH/Intermed Care
[2023-12-02 16:31] LABS: Absolute Neutrophil Count 4.5 X10^3/uL (2.0-7.7); Basophil# 0.03 X10^3/uL; Basophil% 0.5 % (0-1); Eosinophil# 0.13 X10^3/uL; Hematocrit 33.5 % (40-54); Hemoglobin 11.1 g/dL (13.0-16.5); Lymphocyte % 18.5 % (19-41); Mean Corp Hgb Conc 33.1 g/dL (32-36); Mean Corpuscular Hgb 30.8 pg (27.0-32.0); Mean Corpuscular Volume 93.1 fL (80-94); Mean Platelet Vol. 9.6 fl (6.2-12.0); Monocyte# 0.57 X10^3/uL; Monocyte% 8.8 % (0-10); NRBC Flagged by Analyzer 0 % (0-5); Neutrophil # 4.52 X10^3/uL (2.7-7.7); Neutrophil % 69.6 % (47-70); Platelet Count 358 K/mm3 (150-450); RBC Distribution Width CV 13.2 % (11.6-14.6); RBC Distribution Width SD 44.6 fl (35.1-43.9); White Blood Count 6.5 K/mm3 (4.4-11.0)
--- NOTE | 2023-12-02 16:35 | RAD_ITS ---
STUDY: X-RAY CHEST REASON FOR EXAM: Male, 87 years old. Adventitial breath sounds TECHNIQUE: AP portable COMPARISON: April 23, 2018 FINDINGS: There is less than optimal inspiratory effort with mild bibasilar atelectasis or infiltrates slightly more severe on the left.. There is no demonstrated pleural abnormality. Trachea is deviated towards the right possibly due to enlarged left thyroid or tortuosity of the aorta. Normal size heart. Normal mediastinum and natalie. Normal visualized pulmonary arteries. Tortuous mildly calcified aortic arch and descending thoracic aorta. Dorsal spine and shoulders demonstrate degenerative change.. Normal visualized ribs, and clavicles. There is no demonstrated abnormality of the visualized soft tissue structures of the upper abdomen. RAD/Chest 1 View (Portable) IMPRESSION: Diminished inspiratory effort and bibasilar atelectasis or infiltrates more severe on the left Electronically Signed: Howard Castro MD at 16:55 EDT ,
[2023-12-02 16:36] LABS: Bacteria 0 SEEN /hpf (None Seen); Mucous, Urine 0 SEEN /hpf (<or=2+); Red Blood Cells-Urine 0 SEEN /hpf (0-5); Squamous Epithelial Cells - UA 0 SEEN /hpf (0-5); White Blood Cells 0 SEEN /hpf (0-5)
[2023-12-02 16:37] LABS: Color, Urine Yellow (Yellow); Glucose, Dipstick 250 mg/dl (Normal); Ketone-Dipstick Negative (Negative); Leukocyte Esterase-Dipstick Negative /ul (Negative); Nitrite-Dipstick Negative (Negative); Occult Blood-Urine 10 /ul (Negative); Protein-Dipstick Negative (Negative); Urine Bilirubin Dipstick Negative (Negative); Urine Clarity Clear (Clear); Urine Urobilinogen Normal (Normal)
[2023-12-02 16:57] LABS: ALB/GLOB Ratio 0.8 RATIO (0.9-2.4); AST(SGOT) 26 U/L (15-37); Alanine Aminotransfer ALT/SGPT 20 U/L (16-61); Albumin, Serum 3.2 g/dL (3.2-5.0); Alkaline Phosphatase 81 U/L (45-117); Anion Gap 6 (5-15); BUN 8 mg/dL (7-18); BUN/Creat Ratio 8.2 RATIO (10-20); Calcium,Total 8.7 mg/dL (8.5-10.1); Chloride 101 mmol/L (98-107); Creatinine, Serum 0.97 mg/dL (0.70-1.30); EST Glomerular Filtration Rate 77 mL/min (>60); Est Glom Filt Rate - Afr Amer 93 mL/min (>60); Estimated Creatinine Clearance 52.06 ml/min; Globulin 3.8 g/dL (2.2-4.2); Glucose 238 mg/dL (74-106); Potassium 4.8 mmol/L (3.5-5.1); Sodium Level 134 mmol/L (136-145)
--- NOTE | 2023-12-02 16:58 | CT_ITS ---
STUDY: CT BRAIN WITHOUT CONTRAST REASON FOR EXAM: Male, 87 years old. Trauma, on anticoagulant, change in mental status RADIATION DOSAGE (If Supplied By Facility): CTDIvol = ( 44.99 ) mGy, DLP = ( 779.24 ) mGycm TECHNIQUE: Transaxial CT imaging of the brain was performed without administration of intravenous contrast material. Individualized dose optimization techniques were used for this CT. COMPARISON: No relevant priors. FINDINGS: Normal soft tissue structures. Normal calvarium. Atrophy and moderate periventricular white matter ischemic changes.. Subacute infarcts in the right posterior medial temporal lobe, right thalamus and occipital lobe in posterior cerebral artery distribution Normal basal ganglia. Normal brainstem. Normal cerebellum. There is no intracranial hemorrhage. There are no findings of an acute ischemic infarction. Normal visualized paranasal sinuses. Postsurgical changes of the orbits CT/Brain/Head without Contrast IMPRESSION: Subacute right cerebral hemisphere infarct. No evidence for acute intracranial bleed. Electronically Signed: Howard Castro MD at 17:52 EDT ,
[2023-12-02 17:18] LABS: Bedside Glucose 181 mg/dL (74-106)
[2023-12-02 17:21] LABS: Lactic Acid 2.2 mmol/L (0.4-1.9)
[2023-12-02 17:23] LABS: International Normalized Ratio 1.4; Prothrombin Time (Protime)PT. 16.8 SECONDS (11.7-14.9)
[2023-12-02 17:24] LABS: Partial Thromboplast Time 33.9 Seconds (24.1-36.2)
[2023-12-02] MEDS: Morphine 2 MG/ML Syringe IV (17:29)
[2023-12-02] MEDS: Ondansetron 4 MG/2 ML Vial IV (17:29)
[2023-12-02 17:53] LABS: Allen Test Positive; Base Excess 2 mmol/L (-2 to +2); Bicarbonate 26.6 mmol/L (22-26); Blood Gas Specimen Type ART; Mode Not entered; O2 Delivery Device Not entered; PO2 77 mmHG (75-100); SITE L Radial; SO2 96 % (95-99); Total Carbon Dioxide 28 mmol/L; pCO2 40.3 mmHg (35-45); pH 7.43 (7.35-7.45)
[2023-12-02 18:00] VITALS: BP 137/109; PULSE 58; RESP 18; O2SAT 94
--- NOTE | 2023-12-02 18:00 | RAD_ITS ---
STUDY: X-RAY - PELVIS AND LEFT HIP REASON FOR EXAM: Male, 87 years old. Injury/Pain TECHNIQUE: 3 views of the pelvis and hip. COMPARISON: None. FINDINGS: There is a non-specific bowel gas pattern. Normal visualized soft tissue structures. Normal bilateral iliac wings, sacroiliac joints and visualized sacrum. Normal bilateral superior and inferior pubic rami. Normal pubic symphysis. Normal bilateral ischial tuberosities. Normal visualized femoral head. Normal acetabulum. Normal hip joint. RAD/HIP, UNI W/ Pelvis 2-3 Views IMPRESSION: Normal x-ray examination of the pelvis and hip. Electronically Signed: Howard Castro MD at 18:53 EDT ,
[2023-12-02 19:13] VITALS: BP 155/82; PULSE 63; RESP 16; TEMP 36.8; O2SAT 94
[2023-12-02 20:34] LABS: Reflex Lactate? Y
== END 2023-12-02 19:47 | disposition intermediate care facility (04) ==
PROVIDERS: Emergency Provider Emergency Medicine; PCP Family Medicine Geriatric Medicine; Visit Provider Emergency Medicine
DX: S09.90XA Unspecified injury of head, initial encounter (principal); G30.9 Alzheimer's disease, unspecified; I48.91 Unspecified atrial fibrillation; E11.9 Type 2 diabetes mellitus without complications; W19.XXXA Unspecified fall, initial encounter; I10 Essential (primary) hypertension; S70.02XA Contusion of left hip, initial encounter; Z87.891 Personal history of nicotine dependence; Z79.01 Long term (current) use of anticoagulants; E78.5 Hyperlipidemia, unspecified; S50.312A Abrasion of left elbow, initial encounter; R41.82 Altered mental status, unspecified; Z79.899 Other long term (current) drug therapy; Z79.84 Long term (current) use of oral hypoglycemic drugs; E03.9 Hypothyroidism, unspecified; Z90.49 Acquired absence of other specified parts of digestive tract
CPT/HCPCS: 36600; 70450; 71045; 73502; 80053; 81001; 82803; 82962; 83605; 85025; 85610; 85730; 93005; 96374; 96375; 99284; A4216; J2405